=== PATIENT | male | born 1945 | race Caucasian/White ===

== ENCOUNTER → 2017-12-01 10:57 | Outpatient (CLI) | payer MEDICARE, OTHER, SELFPAY ==
--- NOTE | 2017-12-06 16:03 | PM.PFT.1 ---
Pulmonary Function Test Referral & Results Date Patient Seen: 12/01/17 Requesting provider: Veda Costello Results: The spirometry demonstrates an FVC of 3.26 L which is 63% of predicted. The FEV1 was measured at 1.58 L which is 41% of predicted. The FEV1/FVC ratio was 49 which is 66% of predicted. Following the administration of bronchodilator there was a 14% improvement in FEV1 and a 71% improvement in FEF 25-75%.. Lung volumes show an SVC of 5.59 L which is 107% of predicted. The diffusing capacity was measured at 25.69 which is 66% of predicted. No hemoglobin value was provided, so no correction for potential anemia could be made, if appropriate. The maximum voluntary ventilation was normal. Interpretation: This study demonstrates moderately severe obstructive lung disease with some limited evidence of benefit following bronchodilator administration, particularly in small airway flow as demonstrated by the improvement in FEF 25-75%. Lung volumes were normal. Diffusing capacity is minimally reduced as well unless patient is anemic of course. Clinical correlation suggested
== END ==
PROVIDERS: PCP Family Medicine; Visit Provider Family Medicine
DX: R06.02 Shortness of breath (principal)
CPT/HCPCS: 94010; 94060; 94726; 94729

== ENCOUNTER → 2018-12-12 12:26 | Outpatient (CLI) | payer MEDICARE, OTHER, SELFPAY ==
[2018-12-12 13:39] LABS: Alanine Aminotransferase 22 IU/L (21-72); Albumin 4.8 g/dL (3.5-5.0); Albumin Globulin Ratio 1.2 (1.0-2.8); Alkaline Phosphatase 149 U/L (38-126); Aspartate Aminotransferase 24 IU/L (17-59); BUN Creatinine Ratio 22.7 (6-22); Bilirubin Total 0.9 mg/dL (0.2-1.3); Blood Urea Nitrogen 25 mg/dL (9-20); Carbon Dioxide 31 mmol/L (22-32); Chloride 102 mmol/L (98-107); Cholesterol 231 mg/dL (140-199); Estimated Glomerular Filt Rate > 60.0 mL/min (>60); Globulin 3.9 g/dL (1.7-4.1); Glucose 123 mg/dL (80-110); HDL Cholesterol 43 mg/dL (40-60); HEMOLYSIS < 15 (0-50); LDL Cholesterol Calculated 149 mg/dL (<100); Sodium 142 mmol/L (137-145); Total Protein 8.7 g/dL (6.3-8.2); Triglycerides 197 mg/dL (35-150)
[2018-12-12 14:32] LABS: Creatinine Urine Random 178.4 mg/dL
[2018-12-12 14:36] LABS: Microalbumi Creatinin Ratio Ur 16.8 ug/mg CR (<30)
== END ==
PROVIDERS: PCP Family Medicine; Visit Provider Family Medicine
DX: I10 Essential (primary) hypertension (principal)
CPT/HCPCS: 36415; 80053; 80061; 82043; 82570

== ENCOUNTER → 2019-01-08 12:36 | Outpatient (CLI) | payer MEDICARE, OTHER, SELFPAY ==
[2019-01-08 13:04] LABS: Hemoglobin A1C% w Est Avg Glu 5.6 % (4.0-6.0)
== END ==
PROVIDERS: PCP Family Medicine; Visit Provider Family Medicine
DX: R73.9 Hyperglycemia, unspecified (principal)
CPT/HCPCS: 36415; 83036

== ENCOUNTER → 2019-07-09 11:45 | Outpatient (CLI) | payer MEDICARE, OTHER, SELFPAY ==
[2019-07-09 13:04] LABS: Cholesterol 231 mg/dL (140-199); HDL Cholesterol 37 mg/dL (40-60); LDL Cholesterol Calculated 155 mg/dL (<100); Triglycerides 194 mg/dL (35-150)
== END ==
PROVIDERS: PCP Family Medicine; Visit Provider Family Medicine
DX: I10 Essential (primary) hypertension (principal)
CPT/HCPCS: 36415; 80061

== ENCOUNTER 2019-12-13 09:51 | Inpatient (IN) | payer MEDICARE, OTHER, SELFPAY ==
[2019-12-13] VITALS (12 sets, daily range): BP systolic 99–148; BP diastolic 53–68; PULSE 83–97; RESP 14–25; TEMP 36.6–36.8; O2SAT 92–98; BMI 26.3; BMI 24.6
--- NOTE | 2019-12-13 09:57 | DI.CT.S_ITS ---
PROCEDURE: CT STROKE INDICATIONS: Left arm weakness, left facial numbness TECHNIQUE: Noncontrast 4.5 mm thick angled axial sections acquired from the foramen magnum to the vertex, with coronal reformats. For radiation dose reduction, the following was used: automated exposure control, adjustment of mA and/or kV according to patient size. COMPARISON: None. FINDINGS: Image quality: Excellent. CSF spaces: Basal cisterns are patent. No extra-axial fluid collections. The ventricles are symmetric in size and shape. Brain: There is a subacute moderate sized right posterior temporal infarct with associated vasogenic edema and effacement of the sulci without associated hemorrhage. No other acute or subacute infarcts identified. Mild mass effect on the posterior horn of the right lateral ventricle. No midline shift. No impending transtentorial herniation. There is cerebral volume loss for age, with resultant ventricular and sulcal prominence. There are periventricular and deep white matter chronic small vessel ischemic changes. Old wedge-shaped inferior left cerebellar infarct. There is intracranial internal carotid artery atherosclerosis. Skull and face: Calvarium and visualized facial bones appear intact, without suspicious lesions. Sinuses: Small air-fluid level, left maxillary sinus. IMPRESSION: 1. Subacute moderate right posterior temporal infarct. 2. Old left cerebellar infarct. Comment: Findings were discussed with Dr. Matt at the time of study dictation on 12/13/19 at 1014 hrs.. This study fulfills neurological imaging criteria for inclusion or exclusion of acute stroke therapies based on available published neurological guidelines. Dictated by: Moi Martinez M.D. on 12/13/2019 at 10:12 Approved by: Moi Martinez M.D. on 12/13/2019 at 10:16
--- NOTE | 2019-12-13 10:02 | ED_ITS ---
HPI - Neuro Symptoms/Deficit General Chief Complaint: Neuro Symptoms/Deficit Stated Complaint: Had a stroke yesterday Time Seen by Provider: 12/13/19 09:54 Source: patient Mode of arrival: Wheelchair Limitations: no limitations History of Present Illness HPI Narrative: 74-year-old male. History of COPD. Not on anticoagulation here for evaluation of a possible stroke. Patient states that yesterday he was disch arged from an outside facility after being admitted for COPD exacerbation. He stated that while he was waiting for discharge he developed a right-sided temporal headache. He states this headache has since resolved. He stated that he was not evaluated for the headache prior to discharge from that outside facility. He states that during his right home he was feeling well. Sometime yesterday afternoon/evening he started having a tingling, fullness, did sensation in his left hand. Patient stated that on the ride to the emergency department today he started slurring his words. Transitional Care Nurse who is with him in the emergency department today states that he was actually slurring his words last evening. He has never had a stroke before. He states that today his breathing is at baseline for him. He was tested for COVID-19 during his last hospital admission it was reported to be negative. Has not tried anything for these current symptoms prior to arrival. Related Data Previous Rx's Medication Instructions Recorded amlodipine 10 mg tablet 10 mg PO QDAY #90 tab 01/05/19 lisinopril 40 mg tablet 40 mg PO DAILY #180 tab 01/05/19 albuterol sulfate 90 mcg/actuation 2 inhalation INHALATION Q4H PRN #1 06/19/19 breath activated powder inhaler each atorvastatin 20 mg tablet 20 mg PO DAILY #90 tab 08/21/19 chlorthalidone 25 mg tablet 25 mg PO DAILY #90 tab 08/21/19 budesonide-formoterol HFA 80 See Rx Instructions .ROUTE 10/16/19 mcg-4.5 mcg/actuation aerosol .COMPLEX #10.2 gram inhaler metoprolol tartrate 100 mg tablet See Rx Instructions .ROUTE 10/16/19 .COMPLEX #180 tablet Allergies Allergy/AdvReac Type Severity Reaction Status Date / Time Sulfa (Sulfonamide Allergy Unknown Verified 12/13/19 10:27 Antibiotics) [SULFA (SULFONAMIDE ANTIBIOTICS)] Review of Systems Constitutional Constitutional: Denies fever(s), Reports headache(s) and Reports weakness Eyes Eyes: Denies blurry vision and Denies change in vision ENT Ears, Nose, Mouth, and Throat: Denies vertigo, Denies dizziness, Reports headache(s), Denies neck pain and Denies sore throat Cardiovascular Cardiovascular: Denies chest pain, Denies syncope, Denies edema, Denies palpitations and Reports dyspnea on exertion Respiratory Respiratory: Reports cough and Reports dyspnea on exertion Gastrointestinal Gastrointestinal: Denies abdominal pain, Denies nausea and Denies vomiting Genitourinary Genitourinary: Denies dysuria Musculoskeletal Musculoskeletal: Denies back pain, Denies myalgias, Denies deformity, Denies arthralgias, Denies neck pain, Reports numbness and Reports tingling Integumentary/Breasts Skin/Breast: Denies lesions and Denies rash Neurologic Neurologic: Denies abnormal movements, Reports abnormal speech, Denies behavioral changes, Denies confusion, Denies vertigo, Denies dizziness, Denies syncope, Reports headache(s), Reports focal weakness, Reports numbness, Denies radicular pain, Denies convulsions, Reports tingling, Reports paresthesias and Reports weakness Psychiatric Psychiatric: Denies behavioral changes and Denies confusion Endocrine Endocrine: Denies palpitations Hematologic/Lymphatic Hematologic/Lymphatic: Denies easy bleeding and Denies easy bruising Allergic/Immunologic Allergic/Immunologic: Denies urticaria Patient History Medical History ADHD (attention deficit hyperactivity disorder) (Chronic 1945) Alcohol abuse (Resolved 1961) Arthritis (Chronic 1945) Cataract (Resolved 2004) Chicken pox (Resolved 1950) Chronic back pain (Chronic 1972) COPD (chronic obstructive pulmonary disease) (Suspected 2016) Hearing loss (Chronic 1994) Hypertension (Chronic 2016) Measles (Resolved 1948) Mumps (Resolved 1951) Recurrent sinusitis (Resolved 1994) Rheumatic fever (Resolved 1961) Tinnitus (Chronic 1945) Vertigo (Chronic 2016) Surgical History Anesthesia (Resolved) History of cataract removal with insertion of prosthetic lens (Resolved 06/24/17) History of cataract removal with insertion of prosthetic lens (Resolved 07/06/17) Family History Father Heart disease Hypertension Mental health problem Stroke Mother Hypertension Mental health problem Alzheimer's disease Sister Age: 69 Fibromyalgia Grandfather Alzheimer's disease Grandmother No problems noted. Grandfather Black lung disease Grandmother Diabetes mellitus Social History marital status: unmarried,single lives independently: Yes pets and animals: No education level: college [employer]/jehovah's witness: gnosticism seatbelt use: always water heater temp set < 120 deg: Yes working smoke detector in home: Yes fire extinguisher in home: No carbon monox detector in home: Yes firearms in home: Yes Smoking Status: Former smoker during the past year weight has: remained stable well-balanced diet: daily or most days daily servings fruits/ve-1 caffeine: Yes eating out: 4 or more times/week Type(s) of exercise: other frequency: 3-4 times per week duration: > 90 minutes/day Smoking Status: Former smoker Exam Initial Vital Signs Initial Vital Signs: Vital Signs Temperature 97.9 F 12/13/19 10:16 Pulse Rate 97 H 12/13/19 10:16 Respiratory Rate 20 12/13/19 10:16 Blood Pressure 123/58 L 12/13/19 10:16 Pulse Oximetry 94 12/13/19 10:16 Const General: cooperative, comfortable, well developed and well groomed Limitations: mental status not altered HENMT Head: normal to inspection and normocephalic Eyes Eyelids: eyelids normal Conjunctivae: conjunctivae normal Pupils: PERRL Resp Effort & Inspection: normal respiratory effort Auscultation: clear to auscultation bilaterally Cardio Rate: regular rate Rhythm: regular rhythm GI Inspection: non-distended Palpation: soft and No firm Skin Lesions: no lesions Rashes: no rashes Neuro General: alert, awake and oriented x3 Speech: speech normal Other: See NIH scale Extrem General: normal to inspection and capillary refill normal Psych Appearance: grossly normal and well kempt Scores GCS Burton coma scale eye opening: Spontaneous Burton coma scale verbal response: Orientated Radha coma scale motor response: Obey commands Radha coma scale total score: 15 NIH Stroke Scale Level of Conciousness: Alert, keenly responsive Ask month/age: Answers both questions correctly. Open/close eyes, close hand: Performs both tasks correctly Best gaze horizontal: Normal Visual castaneda: Partial hemianopia Facial palsy: Normal symetrical movement Left arm drift: No drift for full 10 sec Right arm drift: No drift for full 10 sec Left leg drift: Drifts down, not to bed Right leg drift: No drift for full 10 sec Limb ataxia: Present in one limb Sensory on face/arms/legs: Mild to moderate sensory loss, can tell touch Best language: No aphasia, normal Dysarthria: Normal Extinction or inattention: No abnormality Total NIH Stroke scale score: 4 Course Orders Ordered: ED Orders 12/13/19 09:55 EKG-12 Lead Stat 12/13/19 09:57 CT Stroke Stat 12/13/19 10:10 Complete Blood Count AUTO DIFF Stat Comprehensive Metabolic Panel Stat Lipase Stat Partial Thromboplastin Time Stat Prothrombin Time INR Stat Discontinued Medications Aspirin (Aspirin Chew) 324 mg PO NOW ONE Stop: 12/13/19 09:55 Last Admin: 12/13/19 10:37 Dose: 324 mg Documented by: ALMITA Vital Signs Vital signs: Vital Signs - 8 hr 12/13/19 10:16 12/13/19 10:30 12/13/19 11:00 Temperature 97.9 F Pulse Rate 97 H 93 H 83 Respiratory Rate 20 25 H 14 Blood Pressure 123/58 L Blood Pressure [Left Arm] 132/61 142/66 H Pulse Oximetry 94 94 93 MDM - Neuro Symptoms/Deficit Medical Records Attestation: I reviewed the patient's medical records. Lab Data Attestation: I reviewed the patient's lab results. Result diagrams: 12/13/19 10:10 12/13/19 10:10 Labs: Lab Results 12/13/19 12/13/19 12/13/19 Range/Units 10:10 10:10 10:10 WBC 11.2 H (4.5-11.0) X10^3/uL RBC 3.64 L (4.5-5.9) X10^6/uL Hgb 12.4 L (13.5-17.5) g/dL Hct 35.2 L (41-53) % MCV 96.7 (80-100) fL MCH 34.1 H (26-34) PG MCHC 35.3 (30-36) % RDW 12.9 (11.6-14.8) % Plt Count 330 (150-400) X10^3/uL Neut % (Auto) 69.1 (50-75) % Lymph % (Auto) 15.6 L (25-40) % Hayes % (Auto) 11.6 (3-14) % Eos % (Auto) 3.3 (2-4) % Baso % (Auto) 0.4 (0-2) % Neut # (Auto) 7700 H (1278-5208) /uL Lymph # (Auto) 1700 (4326-5265) /uL Hayes # (Auto) 1300 H (0-900) /uL Eos # (Auto) 400 (0-450) /uL Baso # (Auto) 0 (0-100) /uL PT 11.3 (10.1-12.7) SECONDS INR 1.0 (0.9-1.3) APTT 28 (26.4-36.2) SECONDS Sodium 133 L (137-145) mmol/L Potassium 4.2 (3.4-5.1) mmol/L Chloride 98 (98-107) mmol/L Carbon Dioxide 28 (22-32) mmol/L BUN 23 H (9-20) mg/dL Creatinine 1.22 (0.66-1.25) mg/dL Estimated GFR 58.2 L (>60) mL/min BUN/Creatinine Ratio 18.9 (6-22) Glucose 128 H (80-110) mg/dL Calcium 9.8 (8.4-10.2) mg/dL Total Bilirubin 1.3 (0.2-1.3) mg/dL AST 52 (17-59) IU/L ALT 71 H (<50) IU/L Alkaline Phosphatase 114 (38-126) U/L Total Protein 7.7 (6.3-8.2) g/dL Albumin 4.1 (3.5-5.0) g/dL Globulin 3.6 (1.7-4.1) g/dL Albumin/Globulin Ratio 1.1 (1.0-2.8) Lipase 193 (23-300) U/L Imaging Data CT scan - head: Radiologist's Impression: [address] [id number] [address] Scan Report Signed Patient: RaviCharbel [facility]#: [id number] : 6Acct:[id number] Age/Sex: 74 / MDate of Service: 12/13/19 Loc: ED Accession Number: [id number] Procedure: CT Stroke Ordering Provider: Charbel Matt D.O. PROCEDURE: CT STROKE INDICATIONS: Left arm weakness, left facial numbness TECHNIQUE: Noncontrast 4.5 mm thick angled axial sections acquired from the foramen magnum to the vertex, with coronal reformats. For radiation dose reduction, the following was used: automated exposure control, adjustment of mA and/or kV according to patient size. COMPARISON: None. FINDINGS: Image quality: Excellent. CSF spaces: Basal cisterns are patent. No extra-axial fluid collections. The ventricles are symmetric in size and shape. Brain: There is a subacute moderate sized right posterior temporal infarct with associated vasogenic edema and effacement of the sulci without associated hemorrhage. No other acute or subacute infarcts identified. Mild mass effect on the posterior horn of the right lateral ventricle. No midline shift. No impending transtentorial herniation. There is cerebral volume loss for age, with resultant ventricular and sulcal prominence. There are periventricular and deep white matter chronic small vessel ischemic c hanges. Old wedge-shaped inferior left cerebellar infarct. There is intracranial internal carotid artery atherosclerosis. Skull and face: Calvarium and visualized facial bones appear intact, without suspicious lesions. Sinuses: Small air-fluid level, left maxillary sinus. IMPRESSION: 1. Subacute moderate right posterior temporal infarct. 2. Old left cerebellar infarct. Comment: Findings were discussed with Dr. Matt at the time of study dictation on 12/13/19 at 1014 hrs.. This study fulfills neurological imaging criteria for inclusion or exclusion of acute stroke therapies based on available published neurological guidelines. Dictated by: Moi Martinez M.D. on 12/13/2019 at 10:12 Approved by: Moi Martinez M.D. on 12/13/2019 at 10:16 ECG Data Attestation: I personally reviewed and interpreted this ECG as follows: Prior ECG tracings: not available for review Interpretation: Sinus rhythm Ventricular rate of 92 Normal axis Normal QRS Normal QTC No ST T wave changes MDM Narrative Medical decision making narrative: Patient with symptom onset greater than 12 hours ago. NIH score 4. Head CT concerning for left temporal infarct. Discussed the case with with Stroke Neurology at [facility] to recommended subacute care. Discussed case with Dr. Theodore with internal medicine who will admit for further evaluation treatment. Discussed admission with the patient expressed understanding agreement Discharge Plan Departure Patient Disposition: Admitted As Inpatient Clinical Impression: Cerebrovascular accident Qualifiers: CVA mechanism: thrombosis Precerebral and cerebral artery: unspecified precer ebral artery Qualified Code(s): I63.00 - Cerebral infarction due to thrombosis of unspecified precerebral artery Admit Date/Time: 12/13/19 11:17 Admit Provider: Leonard Theodore
[2019-12-13] MEDS: ASPIRIN 81 MG CHEW TAB 324 MG PO (10:37)
[2019-12-13 10:49] LABS: Add Manual Diff / Slide Review NO; Basophils Absolute Auto 0 /uL (0-100); Basophils Percent Auto 0.4 % (0-2); Eosinophils Absolute Auto 400 /uL (0-450); Eosinophils Percent Auto 3.3 % (2-4); Hematocrit 35.2 % (41-53); Hemoglobin 12.4 g/dL (13.5-17.5); Lymphocytes Absolute Auto 1700 /uL (1100-4500); Lymphocytes Percent Auto 15.6 % (25-40); Mean Corpuscular HGB Conc 35.3 % (30-36); Mean Corpuscular Hemoglobin 34.1 PG (26-34); Mean Corpuscular Volume 96.7 fL (80-100); Monocytes Absolute Auto 1300 /uL (0-900); Monocytes Percent Auto 11.6 % (3-14); Neutrophils Absolute Auto 7700 /uL (1500-7000); Neutrophils Percent Auto 69.1 % (50-75); Platelet Count 330 X10^3/uL (150-400); Red Blood Cell Count 3.64 X10^6/uL (4.5-5.9); Red Cell Distribution Width 12.9 % (11.6-14.8); White Blood Cell Count 11.2 X10^3/uL (4.5-11.0)
--- NOTE | 2019-12-13 10:55 | PC.NURSE ---
report dc from [facility], pt reported headache, sent home. en route goind home, developed left arm tactile dull approx 11am, with slurred speech, then through out the day, with left hand weakness, unable to hold a cup or grab a blanket. able to sleep thru the night, today en route to the er, developed left face droop approx [id number]
[2019-12-13 10:56] LABS: Prothrombin Time 11.3 SECONDS (10.1-12.7)
[2019-12-13 10:59] LABS: PTT Partial Thromboplastin Tim 28 SECONDS (26.4-36.2)
[2019-12-13 11:00] LABS: Alanine Aminotransferase 71 IU/L (<50); Albumin 4.1 g/dL (3.5-5.0); Albumin Globulin Ratio 1.1 (1.0-2.8); Alkaline Phosphatase 114 U/L (38-126); Aspartate Aminotransferase 52 IU/L (17-59); BUN Creatinine Ratio 18.9 (6-22); Bilirubin Total 1.3 mg/dL (0.2-1.3); Blood Urea Nitrogen 23 mg/dL (9-20); Calcium 9.8 mg/dL (8.4-10.2); Carbon Dioxide 28 mmol/L (22-32); Chloride 98 mmol/L (98-107); Estimated Glomerular Filt Rate 58.2 mL/min (>60); Globulin 3.6 g/dL (1.7-4.1); Glucose 128 mg/dL (80-110); HEMOLYSIS < 15 (0-50); Lipase 193 U/L (23-300); Potassium 4.2 mmol/L (3.4-5.1); Sodium 133 mmol/L (137-145); Total Protein 7.7 g/dL (6.3-8.2)
--- NOTE | 2019-12-13 11:01 | PC.NURSE ---
pt with left face droop,left hand numbness, left eye vision 3-6 o clock, not able to see.
--- NOTE | 2019-12-13 15:20 | PC.NURSE ---
[facility]- ED report given to Dahlia RN Coordinator. pt arrived to unit via stretcher at 1240, settled into room 219, bed alarm on, no history of falls. Oriented to call light. NIH score is 7 for mild slurred speech, does not know current date, guessed at it being . See NIH scale for assessment.
--- NOTE | 2019-12-13 15:23 | P.HP_ITS ---
History of Present Illness History of Present Illness Date Patient Seen: 12/13/19 Time Patient Seen: 15:26 Chief complaint: Had a stroke yesterday Narrative: Meet Rodrigues is a 74-year-old male with past medical history of COPD, hypertension, hyperlipidemia who presented to the emergency room today complaining of stroke symptoms since yesterday evening. Patient states that yesterday he was discharged from [facility] for treatment of a COPD exacerbation, when leaving he complained of a headache on the right side. He was discharge from the hospital and later that evening according to his daughter he was having some difficulty with speech yesterday evening. This continued in this morning his left hand was numb and he did not feel well. He noticed noticed some left-sided numbness in his face and tongue. He denies any lower extremity symptoms. She did not notice any weakness and did not notice any facial droop. He did not have any dizziness, palpitations, chest pain, worsening shortness of breath, lower extremity edema, orthopnea. He did have an IV placed in his left hand and there is some resulting bruising, but it was not numb when he left the hospital. In the emergency room, patient's vital signs are unremarkable. Laboratory eval uation showed a mild leukocytosis at 11.2, hemoglobin of 12.4, platelet of 330. Coags were unremarkable. Chemistries revealed a sodium of 133, creatinine of 1.22, ALT of 71, but no other abnormal findings. In the ED his stroke scale was 4, upon arrival to the floor it was too with differences being in the emergency room he had a left-sided ataxia that was not evident on my exam, and left leg weakness that was not present on my exam, he continues to have sensory deficits on the left as well as partial hemianopia. CT noncontrast showed a subacute moderate right posterior temporal infarct, as well as a left cerebellar infarct. He was admitted to Medicine for further evaluation and monitoring after an acute CVA. Patient History Medical History ADHD (attention deficit hyperactivity disorder) (Chronic 1945) Alcohol abuse (Resolved 1961) Arthritis (Chronic 1945) Cataract (Resolved 2004) Chicken pox (Resolved 1950) Chronic back pain (Chronic 1972) COPD (chronic obstructive pulmonary disease) (Suspected 2016) Hearing loss (Chronic 1994) Hypertension (Chronic 2016) Measles (Resolved 1948) Mumps (Resolved 1951) Recurrent sinusitis (Resolved 1994) Rheumatic fever (Resolved 1961) Tinnitus (Chronic 1945) Vertigo (Chronic 2016) Surgical History Anesthesia (Resolved) History of cataract removal with insertion of prosthetic lens (Resolved 06/24/17) History of cataract removal with insertion of prosthetic lens (Resolved 07/06/17) Family & Social History Family History Father Heart disease Hypertension Mental health problem Stroke Mother Hypertension Mental health problem Alzheimer's disease Sister Age: 69 Fibromyalgia Grandfather Alzheimer's disease Grandmother No problems noted. Grandfather Black lung disease Grandmother Diabetes mellitus Social History: household members other Prior Living Arrangements House lives independently Yes Safety & Behavioral: Feels Safe in Current Yes Environment Been Physically Hurt or No Threatened By a Person Suicidal Ideation Description None Suicide Plan Description No Plan Tobacco & Substance use: Smoking Status Former smoker alcohol intake former Substance Use Type does not use Meds Home Medications and Allergies Home Medications Medication Instructions Recorded Confirmed Type amlodipine 10 mg tablet 10 mg PO QDAY #90 tab 01/05/19 07/09/19 Rx lisinopril 40 mg tablet 40 mg PO DAILY #180 tab 01/05/19 07/09/19 Rx albuterol sulfate 90 mcg/actuation 2 inhalation INHALATION Q4H PRN #1 06/19/19 07/09/19 Rx breath activated powder inhaler each atorvastatin 20 mg tablet 20 mg PO DAILY #90 tab 08/21/19 Rx chlorthalidone 25 mg tablet 25 mg PO DAILY #90 tab 08/21/19 Rx budesonide-formoterol HFA 80 See Rx Instructions .ROUTE 10/16/19 Rx mcg-4.5 mcg/actuation aerosol .COMPLEX #10.2 gram inhaler metoprolol tartrate 100 mg tablet See Rx Instructions .ROUTE 10/16/19 Rx .COMPLEX #180 tablet Allergies Allergy/AdvReac Type Severity Reaction Status Date / Time Sulfa (Sulfonamide Allergy Unknown Verified 12/13/19 10:27 Antibiotics) [SULFA (SULFONAMIDE ANTIBIOTICS)] Review of Systems Review of Systems Narrative: All other systems reviewed with the patient and are negative unless otherwise stated. Exam Vital Signs (past 8 hours): - 12/13/19 10:05 12/13/19 10:16 12/13/19 10:30 Temperature 97.9 F Pulse Rate 96 H 97 H 93 H Respiratory Rate 19 20 25 H Blood Pressure 123/58 L Blood Pressure [Left Arm] 148/67 H 132/61 Pulse Oximetry 98 94 94 12/13/19 11:00 12/13/19 11:30 12/13/19 12:00 Temperature Pulse Rate 83 88 90 Respiratory Rate 14 17 18 Blood Pressure Blood Pressure [Left Arm] 142/66 H 142/66 H 132/68 Pulse Oximetry 93 92 93 12/13/19 13:51 Temperature 98.1 F Pulse Rate 92 H Respiratory Rate 19 Blood Pressure 141/61 H Blood Pressure [Left Arm] Pulse Oximetry 95 Oxygen Delivery Method Room Air Oxygen Flow Rate 0 Narrative Exam Narrative: GENERAL APPEARANCE: Well developed, well nourished, in no acute distress. SKIN: Inspection of the skin reveals no rashes, ulcerations or petechiae. HEENT: Normocephalic atraumatic, extraocular muscles are intact, oropharynx is clear and mucous membranes are moist, neck is supple without adenopathy NECK: Supple and symmetric. There was no thyroid enlargement, and no tenderness, or masses were felt. CHEST: Normal AP diameter and normal contour without any kyphoscoliosis. LUNGS: Auscultation of the lungs revealed no wheezes, rhonchi, or rales. CARDIOVASCULAR: There was a regular rate and rhythm without any murmurs, gallops, rubs. Peripheral pulses were 2+ and symmetric. ABDOMEN: Soft and nontender with normal bowel sounds. No ascites was noted. MUSCULOSKELETAL: There was no tenderness or effusions noted. Muscle strength and tone were normal. EXTREMITIES: No cyanosis, clubbing or edema. NEUROLOGIC: Alert and oriented x 3. Normal affect. Strength is +5/5 in the Upper Extremities and Lower Extremities Bilaterally. Sensation to touch was diminished on his face and left hand. There is a partial hemianopia and he is unable to see in his left lower visual field. Objective ECG Impression: Normal sinus rhythm. Imaging CT scan - head: Radiologist's impression: 1. Subacute moderate right posterior temporal infarct. 2. Old left cerebellar infarct. Labs Result Diagrams: 12/13/19 10:10 12/13/19 10:10 Labs: Laboratory Results - last 24 hr 12/13/19 12/13/19 12/13/19 10:10 10:10 10:10 WBC 11.2 H RBC 3.64 L Hgb 12.4 L Hct 35.2 L MCV 96.7 MCH 34.1 H MCHC 35.3 RDW 12.9 Plt Count 330 Neut % (Auto) 69.1 Lymph % (Auto) 15.6 L [place] % (Auto) 11.6 Eos % (Auto) 3.3 Baso % (Auto) 0.4 Neut # (Auto) 7700 H Lymph # (Auto) 1700 [place] # (Auto) 1300 H Eos # (Auto) 400 Baso # (Auto) 0 PT 11.3 INR 1.0 APTT 28 Sodium 133 L Potassium 4.2 Chloride 98 Carbon Dioxide 28 BUN 23 H Creatinine 1.22 Estimated GFR 58.2 L BUN/Creatinine Ratio 18.9 Glucose 128 H Calcium 9.8 Total Bilirubin 1.3 AST 52 ALT 71 H Alkaline Phosphatase 114 Total Protein 7.7 Albumin 4.1 Globulin 3.6 Albumin/Globulin Ratio 1.1 Lipase 193 Assessment & Plan Assessment & Plan narrative: Meet Rodrigues is a 74-year-old male with past medical history of COPD, hypertension, hyperlipidemia who presented to the emergency room today complaining of stroke symptoms since yesterday evening, he continues to have a partial hemianopia and some facial numbness after arrival to the floor. His CT scan was positive for a subacute infarct and he is admitted to Medicine for further evaluation and monitoring after an acute CVA. 1. CVA, acute, present on admission - CT head non-contrast in the ER showing, a Subacute moderate right posterior temporal infarct and an Old left cerebellar infarct. -patient received full-dose aspirin in the emergency room, continue 81 mg daily. Giving presenting stroke scale of 4 by ER provider this is outside the range for DAPT therapy. -will change to high-intensity statin at Lipitor 80 mg daily from home 20 mg. -will risk stratify with A1c, TSH, fasting lipid panel -continue telemetry -will obtain MR stroke, and echocardiogram -will continue dysphagia diet at this time pending speech evaluation -PT and OT evaluations 2. COPD, chronic, with recent exacerbation -will change home Symbicort to Advair given formulary -RT eval and treat -as needed albuterol nebulizers for shortness of breath -goal oxygenation greater than 88% 3. Hypertension, chronic -continue amlodipine, chlorthalidone, lisinopril, and home metoprolol 4. Hyperlipidemia, chronic -will change statin therapy as noted above Code: Full, states that surrogate decision maker is his daughter or sister, he cannot decide between the 2 at this time. DVT: Heparin subcu Dispo: Admitted under inpatient status as his stay is expected to exceed 2 midnights. Scores NIHSS Level of Conciousness: Alert, keenly responsive Ask month/age: Answers both questions correctly. Open/close eyes, close hand: Performs both tasks correctly Best gaze horizontal: Normal Visual castaneda: Partial hemianopia Facial palsy: Normal symetrical movement Left arm drift: No drift for full 10 sec Right arm drift: No drift for full 10 sec Left leg drift: No drift for full 5 sec Right leg drift: No drift for full 5 sec Limb ataxia: Absent Sensory on face/arms/legs: Mild to moderate sensory loss, can tell touch Best language: No aphasia, normal Dysarthria: Normal Extinction or inattention: No abnormality Total NIH Stroke scale score: 2
[2019-12-13] MEDS: FLUTICASONE/SALMETEROL 100/50 60 PUFF DISKUS INH (19:07)
[2019-12-13] MEDS: ALBUTEROL HFA 60 PUFF/8 GM INH INH (19:07)
[2019-12-13] MEDS: ATORVASTATIN 20 MG TABLET 80 MG PO (20:24)
[2019-12-13] MEDS: HEPARIN 5,000 UNIT/ML VIAL 5000 UNIT SUBCUT (20:26)
[2019-12-14] VITALS (16 sets, daily range): BP systolic 83–149; BP diastolic 56–69; PULSE 84–104; RESP 16–20; TEMP 36.1–36.9; O2SAT 90–98
[2019-12-14 05:36] LABS: Add Manual Diff / Slide Review NO; Basophils Absolute Auto 0 /uL (0-100); Basophils Percent Auto 0.5 % (0-2); Eosinophils Absolute Auto 400 /uL (0-450); Eosinophils Percent Auto 4.4 % (2-4); Hematocrit 31.7 % (41-53); Hemoglobin 11.4 g/dL (13.5-17.5); Lymphocytes Absolute Auto 1900 /uL (1100-4500); Lymphocytes Percent Auto 21.9 % (25-40); Mean Corpuscular Hemoglobin 35.7 PG (26-34); Mean Corpuscular Volume 99.2 fL (80-100); Monocytes Absolute Auto 1000 /uL (0-900); Monocytes Percent Auto 11.4 % (3-14); Neutrophils Absolute Auto 5500 /uL (1500-7000); Neutrophils Percent Auto 61.8 % (50-75); Platelet Count 297 X10^3/uL (150-400); Red Cell Distribution Width 13.1 % (11.6-14.8); White Blood Cell Count 8.9 X10^3/uL (4.5-11.0)
[2019-12-14 05:48] LABS: Alanine Aminotransferase 59 IU/L (<50); Albumin 3.7 g/dL (3.5-5.0); Albumin Globulin Ratio 1.2 (1.0-2.8); Alkaline Phosphatase 94 U/L (38-126); Aspartate Aminotransferase 46 IU/L (17-59); BUN Creatinine Ratio 19.5 (6-22); Bilirubin Total 1.2 mg/dL (0.2-1.3); Bilirubin Unconjugated 1.2 mg/dL (0.0-1.1); Blood Urea Nitrogen 24 mg/dL (9-20); Calcium 9.5 mg/dL (8.4-10.2); Carbon Dioxide 29 mmol/L (22-32); Chloride 100 mmol/L (98-107); Estimated Glomerular Filt Rate 57.7 mL/min (>60); Globulin 3.2 g/dL (1.7-4.1); Glucose 120 mg/dL (80-110); HEMOLYSIS < 15 (0-50); Potassium 3.9 mmol/L (3.4-5.1); Sodium 132 mmol/L (137-145); Total Protein 6.9 g/dL (6.3-8.2)
[2019-12-14 05:59] LABS: Cholesterol 133 mg/dL (140-199); HDL Cholesterol 33 mg/dL (40-60); LDL Cholesterol Calculated 79 mg/dL (<100); Magnesium 2.3 mg/dL (1.6-2.3); Triglycerides 106 mg/dL (35-150)
[2019-12-14 06:09] LABS: Hemoglobin A1C% w Est Avg Glu 6.2 % (4.0-6.0)
[2019-12-14 06:25] LABS: TSH w/ Reflex to FT4 2.12 uIU/mL (0.47-4.68)
[2019-12-14] MEDS: FLUTICASONE/SALMETEROL 100/50 60 PUFF DISKUS INH ×2 (07:37→20:17)
[2019-12-14] MEDS: ALBUTEROL HFA 60 PUFF/8 GM INH INH (07:37)
--- NOTE | 2019-12-14 07:53 | DI.MRI.S_ITS ---
PROCEDURE: MR STROKE Pre- and post-contrast brain MRI, non-contrast brain MR angiogram, pre- and postcontrast neck MR angiogram INDICATIONS: CVA TECHNIQUE: Brain: Noncontrast axial T1 spin echo, axial T2 fast spin echo, sagittal and axial FLAIR, coronal T2 fast spin echo, axial gradient echo, axial diffusion and ADC through the brain. After the administration of contrast, axial 3D VIBE of the cranial vasculature and brain. Brain MRA: Non-contrast 3-D time of flight MR angiogram, with multiple guvexnd-duxmrdcan-kgpzhqrnsa (MIP) reformats performed. Neck MRA: Axial and sagittal TruFISP through the neck. Coronal dynamic MR angiogram during administration of contrast in the arterial and venous phases, with 3-dimenstional lhaiiqw-xicxbourc-ejvdnpdeoo (MIP) reformats constructed from subtraction images. COMPARISON: [facility], CT, CT STROKE, 12/13/2019, 9:52. [facility], [place], CAROTID ARTERY DOPPLER BILAT, 07/13/2017, 13:59. FINDINGS: Image quality: This examination is limited by involuntary motion artifact. The intracranial arterial system is poorly evaluated. BRAIN: CSF spaces: Ventricles are normal in size and shape. Basal cisterns are patent. No extra-axial fluid collections. Brain: There is a moderately sized infarction seen involving the right frontoparietal region, with mild involvement of the temporal lobe also seen, with abnormal diffusion weighted signal with decreased signal on ADC map and developing T2-weighted signal. No intracranial bleeds or mass effects. Lozano-white matter interface is normal. Brainstem appears normal. Brain parenchymal volume loss is seen. Chronic small vessel ischemic change can be seen. Normal intravascular flow voids are present. No abnormal intracranial enhancement. Skull and face: Calvarial marrow signal is normal. Orbits appear normal. Sinuses: Sinuses and mastoids are clear. BRAIN MR ANGIOGRAM: Anterior circulation: Intracranial internal carotid arteries are normal in size and enhancement. The flow within the paired anterior cerebral arteries is normal and symmetric. The flow within the middle cerebral arteries is normal and symmetric. The anterior communicating artery is seen. No stenoses, occlusions, or aneurysms. Posterior circulation: There is poor flow within the left vertebral artery. There is a normal appearing basilar artery. The flow within the posterior cerebral arteries is normal and symmetric. No stenoses aneurysms. NECK MR ANGIOGRAM: Carotids: Great vessels demonstrate a conventional anatomy as they arise from the aortic arch. The origins of the common carotid arteries appear patent. The calibers and courses of both common carotid arteries are normal. The bifurcation regions demonstrate atherosclerotic irregularity, yet without a hemodynamically significant stenosis. Posterior circulation: There is a high-grade stenosis seen at the origin of the left vertebral artery, with poor flow seen within the left vertebral artery. Miscellaneous: Subclavian arteries appear patent. Pre-contrast images through the neck show no soft tissue abnormalities. IMPRESSION: BRAIN MRI: Moderately sized subacute infarction involving the right frontoparietal region, and also involving a mild portion of the posterior right temporal lobe. BRAIN MR ANGIOGRAM: To the limits of this study, no significant intracranial arterial abnormality is seen. NECK MR ANGIOGRAM: High-grade stenosis seen involving the left proximal vertebral artery. No significant carotid stenosis can be seen. Dictated by: Corey Vicente M.D. on 12/14/2019 at 10:47 Approved by: Corey Vicente M.D. on 12/14/2019 at 10:53
[2019-12-14] MEDS: polyethylene glycoL 3350 17 GM POWD.PACK PO (09:45)
[2019-12-14] MEDS: HEPARIN 5,000 UNIT/ML VIAL 5000 UNIT SUBCUT ×2 (09:45→20:01)
[2019-12-14] MEDS: SODIUM CHLORIDE 0.9% FLUSH 10 ML IV ×2 (09:45→20:02)
[2019-12-14] MEDS: ASPIRIN EC 81 MG TABLET PO (09:45)
[2019-12-14] MEDS: DOCUSATE 100 MG CAPSULE PO ×2 (09:45→20:01)
[2019-12-14] MEDS: ACETAMINOPHEN 325 MG TABLET 650 MG PO ×2 (09:50→20:01)
[2019-12-14] MEDS: lisinopriL 20 MG TABLET 40 MG PO (10:16)
[2019-12-14] MEDS: CHLORTHALIDONE 25 MG TABLET PO (10:16)
--- NOTE | 2019-12-14 10:22 | PC.NURSE ---
Day shift: Pt odd unit for imaging at approx 1015. Pt refused to wear a mask.
--- NOTE | 2019-12-14 11:26 | OT.IP.EVAL ---
Current Diagnoses Cerebral infarction, unspecified (12/13/19) Past Medical History (Last Reviewed 12/13/19 @ 10:25 by Charbel Matt DO) ADHD (attention deficit hyperactivity disorder) (Chronic 1945) Alcohol abuse (Resolved 1961) Arthritis (Chronic 1945) Cataract (Resolved 2004) Chicken pox (Resolved 1950) Chronic back pain (Chronic 1972) COPD (chronic obstructive pulmonary disease) (Suspected 2016) Hearing loss (Chronic 1994) Hypertension (Chronic 2016) Measles (Resolved 1948) Mumps (Resolved 1951) Recurrent sinusitis (Resolved 1994) Rheumatic fever (Resolved 1961) Tinnitus (Chronic 1945) Vertigo (Chronic 2016) Surgical History (Last Reviewed 12/13/19 @ 10:25 by Charbel Matt DO) Anesthesia (Resolved) History of cataract removal with insertion of prosthetic lens (Resolved 06/24/17) History of cataract removal with insertion of prosthetic lens (Resolved 07/06/17) Occupational Therapy Inpatient Evaluation/Re-Eval M1 PT/OT-IP Prior Functional Status Start: 12/14/19 12:33 Freq: NEEDED Status: Active Protocol: Document 12/14/19 12:33 CGR (Rec: 12/14/19 12:54 CGR [id number]) Medical Review Prior Functional Status Medical History Reviewed Yes Communication Pt is an effective verbal communicator. Mobility and Gait Pt was IND prior to admit but stated that he was having difficulty with endurance. Activities of Daily Living and IADL's Pt was IND in all ADLs. Social History Household Members family Living Arrangements House Number of Floors (Floors) One Floor Number of Stairs To Enter/Railing? 1 step without rail to enter Home Environment Standard Height Toilet,Tub/ Shower Doors Home Equipment Four Wheel Walker,Straight Cane,Grab Bars In Shower Employment Status Retired Additional Social History Comment Pt lives with his grandson. Pts sister lives nextdoor and his daughter and her family live on the other side of him. Pt states he would have help from family if needed. M2 OT-IP Current Condition Start: 12/14/19 12:33 Freq: Status: Active Protocol: Document 12/14/19 12:33 CGR (Rec: 12/14/19 12:54 CGR [id number]) Occupational Therapy Current Condition Current Condition Evaluation Date 12/14/19 Treatment Diagnosis Sub acute R posterior temporal and L cerebellar infarcts Diagnosis Onset Date 12/13/19 M3 OT- IP Subjective and Pain Start: 12/14/19 12:33 Freq: Status: Active Protocol: Document 12/14/19 12:33 CGR (Rec: 12/14/19 12:54 CGR [id number]) OT- Subjective Occupational Therapy Visit Type Type Initial Evaluation Visit Start Time 11:11 Visit Stop Time 11:26 Total Visit Minutes 15 Notes Limited time for evalution. Pt seen between CT scan and ECHO Occupational Therapy Visit Comments Patient Comments I think I am going to need this cane. OT Pain Assessment Pain When Pain Assessed At Rest Pain Present Pain Present Denied Pain M4 OT- IP ADL's Start: 12/14/19 12:33 Freq: Status: Active Protocol: Document 12/14/19 12:33 CGR (Rec: 12/14/19 12:54 CGR [id number]) OT [id number] Comments OT Self-Feeding Comments Not meal time OT ADL-Grooming Comments OT Grooming Comments Pt declined OT ADL-Oral Care Comments Oral Care Comments Not performed d/t time restrictions. OT ADL-Dressing General Eval Lower Body Dressing Ability Standby Assistance Areas Needing Assistance Socks Comments OT Dressing Comments Pt able to doff and don L sock with difficulty and extra time. OT ADL-Toileting General Evaluation Toileting Ability Independent Devices Toileting Assistive Devices Commode Comments OT Toileting Comments Pt demonstrated use of toilet without difficulties OT ADL-Bathing Comments OT Bathing Comments Not performed in this session. M5 OT- IP IADL's Start: 12/14/19 12:33 Freq: Status: Active Protocol: Document 12/14/19 12:33 CGR (Rec: 12/14/19 12:54 CGR [id number]) OT-Instrumental Activities of Daily Living Deficits IADL Deficits Identified Deficits Home Safety Awareness Awareness of Need for Assistance at Home Good Awareness Ability to Problem Solve Emergency Able to Problem Solve Situations Home Safety Comments Concerns for true understanding of visual deficit. 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 M6 OT- IP Functional Cognition Start: 12/14/19 12:33 Freq: Status: Active Protocol: Document 12/14/19 12:33 CGR (Rec: 12/14/19 12:54 CGR [id number]) Cognitive Factors Limiting Selfcare Function Cognitive Ability Level of Alertness Alert Patient Orientation Name,Age,Birthday,Month,Date, Year,Day of Week,Place, Situation Attention Span Ability Capable of Focused Attention, Capable of Sustained Attention Ability to Follow Commands Able to Follow One Step Commands Cognitive Comments Cognitive Assessment Comments Pt may benefit from formal cog assessment for baseline levels s/p CVA. OT- Vision and Hearing OT- Hearing Assessment OT- Hearing Assessment WFL OT- Vision Assessment Visual Acuity Glasses For Reading Visual Attentiveness WFL Occular Pursuits WFL Visual Convergence WFL Visual Giordano Impaired Vision Assessment Comments Pt missing vision to his L lower quadrant. M7 OT- IP Mobility and Balance Start: 12/14/19 12:33 Freq: Status: Active Protocol: Document 12/14/19 12:33 CGR (Rec: 12/14/19 12:54 CGR [id number]) OT- Bed Mobility Assessment Rolling Type of Rolling Roll to Right Level of Assistance Independent Supine to Sit Supine to Sit Assist Independent Sit to Supine Sit to Supine Assist Independent Scooting Scooting to Edge of Bed Independent OT-Transfer Assessment Sit to and From Stand Sit to and from Stand Contact Guard Assistance Transfers Transfer Ability Contact Guard Assistance Technique Transfer Destination Bed,Toilet Transfer Technique Stand Step Pivot Devices Transfer Assistive Devices Gait Belt,Straight Cane Comments Mobility Comments Pt ambualted to bathroom and returned to bed for ECHO OT- Gait Assessment Gait Gait Assistance Required: Contact Guard Assist Assistive Devices Assistive Device Gait Belt,Straight Cane OT- Balance Assessment Sitting Balance and Reactions Static Sitting Balance Ability Good Dynamic Sitting Balance Ability Fair M8 OT- IP Objective Assessments Start: 12/14/19 12:33 Freq: Status: Active Protocol: Document 12/14/19 12:33 CGR (Rec: 12/14/19 12:54 CGR [id number]) OT Gross Range of Motion Upper Extremity Range of Motion Assessment Within Functional Limits OT Strength Upper Extremity Strength Assessment Within Functional Limits Comments Strength Comments Grossly 4+/5 throughout. Noted that the LUE is slightly weaker than the right. Pt is R handed. OT- Coordination Assessment Upper Extremity Finger to Nose Test Within Functional Limits Finger Tapping Test Left UE Impaired OT-Muscle Tone Assessment Muscle Tone WNL No OT Sensation Assessment Location Left Hand Light Touch Impaired Sensation Description Numbness Comments Summary Comments Pt states numbness to the L palm and fingers but that the back of his hand now feels normal. Edema Edema Absent M9 OT- IP Assessment and Plan Start: 12/14/19 12:33 Freq: Status: Active Protocol: Document 12/14/19 12:33 CGR (Rec: 12/14/19 12:54 CGR [id number]) OT Summary Assessment and Plan Potential Rehabilitation Potential Excellent Analytic Complexity at Evaluation Low Summary OT Impairments Coordination,Functional Cognition,Functional Mobility, Self-Feeding,Grooming,Dressing ,Toileting,Bathing,Shower Transfers,Activity Tolerance Progress Towards Goals Progressing Toward Goals Assessment Summary Pt presents as a low complexity evaluation s/p CVA with L sided numbness and coordination deficits. Pt also demonstrates visual deficits to the L lower quadrant. Pt will benefit from OT services to address declines. Recommend further coordination testing of the hand and cog testing. Pt is likely safe for discharge home with family support. Goals Self-Feeding Goal Independent Grooming Goal Independent Dressing Goal Independent Toileting Goal Independent Bathing Goal Independent Toilet Transfer Goal Independent Shower Transfer Goal Independent Days to Meet Goals 5 Frequency of Treatment Frequency Of Treatment Once a Day Treatment Plan OT Treatment Plan ADL Training,Functional Cognition Training,Functional Mobility,Therapeutic Exercises ,Patient/Family Education, Discharge Planning Discharge Recommendations OT Discharge Recommendations Home with Assistance Home Equipment Needs tub transfer bench. Transportation Needs at Discharge Private Vehicle
--- NOTE | 2019-12-14 11:28 | DI.ECHO.S_ITS ---
Echocardiogram Report + + :Name: MARIA DE JESUS ANN Study Date: 12/14/2019 Height: 74 in : :[facility] Weight: 191 lb : : Gender: Male BSA: 2.1 m2 : :: 1945 Age: 74 yrs BP: 127/59 mmHg: :Reason For Study: CVA : :History: COPD : :Ordering Physician: [place] : :Hospitalist Performed By: Zenaida Sweeney : :Referring: URBAN VELÁZQUEZ : + + Interpretation Summary Extremely limited visualization of all cardiac structures. Echo contrast was used to improve visualization of endocardium, but image quality remained poor due to poor acoustic windows. The left ventricle is not well visualized. Left ventricular ejection fraction is visually normal. Diastolic parameters suggest a relaxation abnormality of the left ventricle, consistent with probable normal filling pressures. The right ventricle grossly appears normal in size with probable normal systolic function. The valves are not well-visualized but there is no hemodynamically significant valvular abnormalities by Doppler. -Overall these findings are similar to the prior study. Procedure: A two-dimensional transthoracic echocardiogram with color flow and Doppler was performed. The study quality was technically difficult with limited visualization of cardiac structures. Comparison is made with the echocardiogram of 07/28/2017. Images from the parasternal window were difficult to obtain and are suboptimal in quality. The patient was in normal sinus rhythm during the exam. Left Ventricle: The left ventricle is not well visualized. Left ventricular systolic function is probably normal. Regional wall motion abnormalities cannot be excluded due to limited visualization. Diastolic parameters suggest a relaxation abnormality of the left ventricle, consistent with probable normal filling pressures. Right Ventricle: The right ventricle grossly appears normal in size with probable normal systolic function. Atria: The left atrium grossly appears normal in size. The right atrium grossly appears normal in size. Mitral Valve: The mitral valve is not well visualized. The mitral valve appears to be mildly calcified, but opens well. No obvious mitral regurgitation. Aortic Valve: The aortic valve is not well visualized. No obvious aortic insufficiency. Tricuspid Valve: The tricuspid valve is not well visualized. There is at least trace or physiologic amount of tricuspid regurgitation. Pulmonic Valve: The pulmonic valve is not well visualized. Great Vessels: The aortic root is not well visualized. The ascending aorta could not be visualized. The inferior vena cava was not visualized. MMode/2D Measurements & Calculations LA A2 area: 17.9 cm2 RA long axis: 4.3 cm LA A4 area: 21.6 cm2 RA area: 14.0 cm2 LA length (vol): 5.3 cm RA vol: 38.6 ml LA vol: 62.5 ml RA : 18.1 ml/m2 LA vol index: 29.3 ml/m2 RVD1 (basal): 3.5 cm RVD2 (mid): 3.0 cm TAPSE: 1.8 cm Doppler Measurements & Calculations Ao V2 max: 127.7 cm/sec LVOT Max Emery: 114.8 cm/sec Ao V2 mean: 89.1 cm/sec LV V1 max P.3 mmHg Ao max P.5 mmHg LV V1 VTI: 16.4 cm Ao mean P.5 mmHg sev ratio: 0.89 Ao V2 VTI: 18.5 cm MV E max emery: 46.0 cm/sec MV P1/2t max emery: 45.9 cm/sec MV A max emery: 79.0 cm/sec MVA(P1/2t): 3.3 cm2 MV E/A: 0.58 Med Peak E' Emery: 6.6 cm/sec E/E' med: 6.9 Lat Peak E' Emery: 7.4 cm/sec E/E' lat: 6.2 E/e' average: 6.6 MV dec time: 0.23 sec MV P1/2t: 66.3 msec _ Electronically signed by: Bart hCan M.D. on Reading Physician:12/14/2019 02:11 PM
--- NOTE | 2019-12-14 14:10 | PT.IIE ---
Current Diagnoses Cerebral infarction, unspecified (12/13/19) Surgical History (Last Reviewed 12/13/19 @ 10:25 by Charbel Matt DO) Anesthesia (Resolved) History of cataract removal with insertion of prosthetic lens (Resolved 06/24/17) History of cataract removal with insertion of prosthetic lens (Resolved 07/06/17) Medical History (Last Reviewed 12/13/19 @ 10:25 by Charbel Matt DO) ADHD (attention deficit hyperactivity disorder) (Chronic 1945) Alcohol abuse (Resolved 1961) Arthritis (Chronic 1945) Cataract (Resolved 2004) Chicken pox (Resolved 1950) Chronic back pain (Chronic 1972) COPD (chronic obstructive pulmonary disease) (Suspected 2016) Hearing loss (Chronic 1994) Hypertension (Chronic 2016) Measles (Resolved 1948) Mumps (Resolved 1951) Recurrent sinusitis (Resolved 1994) Rheumatic fever (Resolved 1961) Tinnitus (Chronic 1945) Vertigo (Chronic 2016) Physical Therapy Inpatient Evaluation/Re-Eval M1 PT/OT-IP Prior Functional Status Start: 12/14/19 12:33 Freq: NEEDED Status: Active Protocol: Document 12/14/19 12:33 CGR (Rec: 12/14/19 12:54 CGR [id number]) Medical Review Prior Functional Status Medical History Reviewed Yes Communication Pt is an effective verbal communicator. Mobility and Gait Pt was IND prior to admit but stated that he was having difficulty with endurance. Activities of Daily Living and IADL's Pt was IND in all ADLs. Social History Household Members family Living Arrangements House Number of Floors (Floors) One Floor Number of Stairs To Enter/Railing? 1 step without rail to enter Home Environment Standard Height Toilet,Tub/ Shower Doors Home Equipment Four Wheel Walker,Straight Cane,Grab Bars In Shower Employment Status Retired Additional Social History Comment Pt lives with his grandson. Pts sister lives nextdoor and his daughter and her family live on the other side of him. Pt states he would have help from family if needed. M1 PT/OT-IP Prior Functional Status Start: 12/14/19 15:47 Freq: NEEDED Status: Active Protocol: Document 12/14/19 14:10 AB (Rec: 12/14/19 16:09 AB [id number]) Medical Review Prior Functional Status Medical History Reviewed Yes Communication able to make needs known Mobility and Gait pt stated that he is independent with all mobilities and ambulation without AD but has a SPC that was given to him at [facility]. stated that the only problem he has was getting short of breath after walking a few feet Activities of Daily Living and IADL's per OT's note : Pt was IND in all ADLs. Social History Household Members family Living Arrangements House Number of Floors (Floors) One Floor Number of Stairs To Enter/Railing? pt lives with his grandson that works but stated that his daughter and sister lives next door. has 1 step to enter Home Environment Standard Height Toilet Home Equipment Straight Cane,Grab Bars In Shower Additional Social History Comment pt stated that he sleeps on a recliner M2 PT-IP Current Condition Start: 12/14/19 15:47 Freq: NEEDED Status: Active Protocol: Document 12/14/19 14:10 AB (Rec: 12/14/19 16:09 AB [id number]) Physical Therapy Current Condition Current Condition Evaluation Date 12/14/19 Treatment Diagnosis R CVA; difficulty in walking Onset Date 12/13/19 Precautions Other Precautions BP M3 PT-IP Subjective Start: 12/14/19 15:47 Freq: NEEDED Status: Active Protocol: Document 12/14/19 14:10 AB (Rec: 12/14/19 16:09 AB [id number]) Subjective Physical Therapy Visit Type Type Initial Evaluation Visit Start Time 14:10 Visit Stop Time 14:45 Total Visit Minutes 35 Number of BANK NOTE DESIGNER Visits 0 Physical Therapy Visit Comments Patient Comments pt agreeable to do PT M4 PT-IP Mobility and Gait Start: 12/14/19 15:47 Freq: NEEDED Status: Active Protocol: Document 12/14/19 14:10 AB (Rec: 12/14/19 16:09 AB [id number]) PT-Bed Mobility Assessment Supine to Sit Supine to Sit Standby Assistance Sit to Supine Sit to Supine Standby Assistance PT-Transfer Assessment Sit to and From Stand Sit to and from Stand Contact Guard Assistance,1 Person Assistance,Use of Upper Extremities Equipment Transfer Assistive Device Gait Belt,Straight Cane Comments Mobility Comments BP in supine: 128/69. pt completed supine to sit SBA with HOB elevated. pt was able to sit on EOB SBA. c/o dizziness. BP 122/67. pt completed sit to stand CGA and was able to stand using SPC CGA but has to sit back down and unable to ambulate due to c/o dizziness. BP: 126/57. pt requested to just rest at this time. completed sit to supine SBA. positioned pt in bed. call light and table placed within reach. PT-Balance Assessment Sitting Balance and Reactions Static Sitting Balance Ability Good Dynamic Sitting Balance Ability Good Standing Balance and Reactions Static Standing Balance Ability Fair Dynamic Standing Balance Ability Fair Device Used SPC M5 PT-IP Objective Assessments Start: 12/14/19 15:47 Freq: NEEDED Status: Active Protocol: Document 12/14/19 14:10 AB (Rec: 12/14/19 16:09 AB [id number]) Orientation Orientation/Cognition Level of Alertness Alert Orientation Name,Place,Situation Safety Awareness Decreased Safety Awareness Gross Range of Motion Lower Extremity ROM Assessment Within Functional Limits Strength Lower Extremity Strength Assessment Within Functional Limits Sensation Assessment Sensation Gross Sensation Left UE Impaired Light Touch Impaired Proprioception (Position) Impaired Sensation Description Numbness Muscle Tone Muscle Tone WNL Yes M6 PT-IP Treatment Start: 12/14/19 15:47 Freq: NEEDED Status: Active Protocol: Document 12/14/19 14:10 AB (Rec: 12/14/19 16:09 AB [id number]) Physical Therapy Treatment Education Education Provided Safety M7 PT-IP Assessment and Plan Start: 12/14/19 15:47 Freq: NEEDED Status: Active Protocol: Document 12/14/19 14:10 AB (Rec: 12/14/19 16:09 AB [id number]) PT Summary Assessment and Plan Potential Rehabilitation Potential Good Status of Condition at Evaluation Evolving Summary Impairments Strength,Balance,Coordination, Sensation,Tone,Cognition,Bed Mobility,Transfers,Gait, Activity Tolerance Assessment Summary pt unable to tolerate much today due to c/o dizziness and was not able to ambulate with PT. will have to assess further to determine safe d/c plan. pt may require acute rehab or SNF rehab to improve strength, balance, activity tolerance and mobility. If pt goes home, will require assist and home health PT or outpt PT. Goals Bed Mobility Goal Independent Transfer Goal Independent,Cane Gait Goal Independent,Crutches Gait Distance 150 Other Goals up/down 1 step using SPC SBA Days to Meet Goals 5 Frequency of Treatment Frequency Of Treatment Twice a Day Treatment Plan Physical Therapy Treatment Plan Bed Mobility Training,Transfer Training,Gait Training, Therapeutic Exercise,Balance Retraining,Discharge Planning, Neuromuscular Re-ed, Coordination Retraining Recommendations To Nursing Amount of Assist Needed 1 Person Assist Discharge Recommendations PT Discharge Recommendations Home with Assistance,Home Health,SNF Rehab,Acute Rehab, Outpatient PT Other Discharge Recommendations depending on progress: acute rehab vs SNF vs home with assist with homehealth PT or outpt PT Transportation Needs at Discharge Private Vehicle,Wheelchair/ Cabulance
--- NOTE | 2019-12-14 14:44 | DIET.PN ---
Dietary Progress Note Assessment: 74y M admitted for CVA found to have subacute moderate right posterior temporal infarct and left cerebellar infarct referred to nutrition for pt report of reduced appetite. Pt hospitalized at [facility] prior to coming to c CVA sx. He reports his appetite is almost back to normal, says they stuffed me at other hospital (reports was tasty, healthy foods). Pt had 100% lunch today and anticipating salmon for dinner tonight. HT: 187.9cm WT: 87kg BMI: 24.6 Labs: A1c 6.2, HDL 33 L MNA: 10 Zana:19 Diet Order: Heart Healthy/Dysphagia Mechanical Soft/thins
--- NOTE | 2019-12-14 14:58 | PM.PN.1 ---
Subjective Subjective Date Patient Seen: 12/14/19 Time Patient Seen: 14:58 Interval history: Charbel Rodrigues is a 74-year-old male with past medical history of COPD, hypertension, hyperlipidemia who was admitted with an acute CVA that was noted on initial non con head CT and then confirmed by MRI today. He feels more weak today, and he was slightly more hypotensive. His blood pressure does very quite a lot during the day, occasionally 140s and occasionally 90 systolic. His home amlodipine was held today, but he was still hypotensive, and slightly dizzy when attempting to work with physical therapy. Have decreased his home medications and half and will try again tomorrow to work with physical therapy. Exam Vital Signs (past 8 hours): - 12/14/19 07:37 12/14/19 08:00 12/14/19 08:43 Temperature 97.7 F Pulse Rate 90 98 H Respiratory Rate 16 20 Blood Pressure 95/59 L Pulse Oximetry 93 92 91 12/14/19 10:00 12/14/19 12:00 12/14/19 12:13 Temperature 97 F L Pulse Rate 86 Respiratory Rate 20 Blood Pressure 141/69 H 83/57 L Pulse Oximetry 92 92 Oxygen Delivery Method Room Air Oxygen Flow Rate 0 Narrative Exam Narrative: GENERAL APPEARANCE: Well developed, well nourished, in no acute distress. SKIN: Inspection of the skin reveals no rashes, ulcerations or petechiae. HEENT: Normocephalic atraumatic, extraocular muscles are intact, oropharynx is clear and mucous membranes are moist, neck is supple without adenopathy NECK: Supple and symmetric. There was no thyroid enlargement, and no tenderness, or masses were felt. CHEST: Normal AP diameter and normal contour without any kyphoscoliosis. LUNGS: Auscultation of the lungs revealed no wheezes, rhonchi, or rales. CARDIOVASCULAR: There was a regular rate and rhythm without any murmurs, gallops, rubs. Peripheral pulses were 2+ and symmetric. ABDOMEN: Soft and nontender with normal bowel sounds. No ascites was noted. MUSCULOSKELETAL: There was no tenderness or effusions noted. Muscle strength and tone were normal. EXTREMITIES: No cyanosis, clubbing or edema. NEUROLOGIC: Alert and oriented x 3. Normal affect. Strength is +5/5 in the Upper Extremities and Lower Extremities Bilaterally. Sensation to touch was diminished on his face and left hand. There is a partial hemianopia and he is unable to see in his left lower visual field. Objective Labs Result Diagrams: 12/14/19 05:18 12/14/19 05:18 Labs: Laboratory Results - last 24 hr 12/14/19 12/14/19 12/14/19 05:18 05:18 05:18 WBC 8.9 RBC 3.20 L Hgb 11.4 L Hct 31.7 L MCV 99.2 MCH 35.7 H MCHC 36.0 RDW 13.1 Plt Count 297 Neut % (Auto) 61.8 Lymph % (Auto) 21.9 L [place] % (Auto) 11.4 Eos % (Auto) 4.4 H Baso % (Auto) 0.5 Neut # (Auto) 5500 Lymph # (Auto) 1900 [place] # (Auto) 1000 H Eos # (Auto) 400 Baso # (Auto) 0 Sodium 132 L Potassium 3.9 Chloride 100 Carbon Dioxide 29 BUN 24 H Creatinine 1.23 Estimated GFR 57.7 L BUN/Creatinine Ratio 19.5 Glucose 120 H Hemoglobin A1c 6.2 H Calcium 9.5 Magnesium 2.3 Total Bilirubin 1.2 Conjugated Bilirubin 0.0 Unconjugated Bilirubin 1.2 H AST 46 ALT 59 H Alkaline Phosphatase 94 Total Protein 6.9 Albumin 3.7 Globulin 3.2 Albumin/Globulin Ratio 1.2 Triglycerides 106 Cholesterol 133 L LDL Cholesterol, Calc 79 HDL Cholesterol 33 L TSH 12/14/19 05:18 WBC RBC Hgb Hct MCV MCH MCHC RDW Plt Count Neut % (Auto) Lymph % (Auto) [place] % (Auto) Eos % (Auto) Baso % (Auto) Neut # (Auto) Lymph # (Auto) [place] # (Auto) Eos # (Auto) Baso # (Auto) Sodium Potassium Chloride Carbon Dioxide BUN Creatinine Estimated GFR BUN/Creatinine Ratio Glucose Hemoglobin A1c Calcium Magnesium Total Bilirubin Conjugated Bilirubin Unconjugated Bilirubin AST ALT Alkaline Phosphatase Total Protein Albumin Globulin Albumin/Globulin Ratio Triglycerides Cholesterol LDL Cholesterol, Calc HDL Cholesterol TSH 2.12 Assessment & Plan Assessment & Plan narrative: Charbel Rodrigues is a 74-year-old male with past medical history of COPD, hypertension, hyperlipidemia who presented to the emergency room today complaining of stroke symptoms since yesterday evening, he continues to have a partial hemianopia and some facial numbness today. His CT scan was positive for a subacute infarct and he is admitted to Medicine for further evaluation and monitoring after an acute CVA. 1. CVA, acute, present on admission - CT head non-contrast in the ER showing, a Subacute moderate right posterior temporal infarct and an Old left cerebellar infarct. -patient received full-dose aspirin in the emergency room, continue 81 mg daily. Giving presenting stroke scale of 4 by ER provider this is outside the range for DAPT therapy. -will change to high-intensity statin at Lipitor 80 mg daily from home 20 mg. -A1c, 6.2%, TSH 2.12. Total cholesterol 133, LDL 79, HDL 33. -continue telemetry to monitor for atrial fibrillation. Consider outpatient holter monitor. -echocardiogram is currently performed and read is pending -MR stroke: Moderately sized subacute infarction involving the right frontoparietal region, and also involving a mild portion of the posterior right temporal lobe. 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 No significant carotid stenosis can be seen. -will continue dysphagia diet at this time pending speech evaluation -PT and OT evaluations 2. COPD, chronic, with recent exacerbation -will change home Symbicort to Advair given formulary -RT eval and treat -as needed albuterol nebulizers for shortness of breath -goal oxygenation greater than 88% 3. Hypertension, chronic -Have decreased home BP medications due to hypotensions today. Decreased lisinopril to 20 mg, discontinued amlodipine and chlorthalidone. 4. Hyperlipidemia, chronic -will change statin therapy as noted above 5. Pre-diabetes, new diagnosis - A1c of 6.2%, roller embosser consultation and patient was counseled on dietary modifications. 6. 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 - recommended outpatient follow up at [facility] where ultrasound was obtained. Records are available in patient's paper chart. Code: Full, states that surrogate decision maker is his daughter or sister, he cannot decide between the 2 at this time. DVT: Heparin subcu Dispo: Remains inpatient, anticipate discharge home vs less likely acute rehab depending on PT evaluation.
--- NOTE | 2019-12-14 15:30 | CM.IDA ---
Initial DCP Assessment Note: Patient is a 74 yo male, resident of [place]. Pt presents w/ acute CVA, DR Theodore indicates this afternoon there have been two lesions identified on MRI PCP: Veda Costello Payer: [employer] Reviewed chart. Dr Theodore thinks patient may be ready to DC home vs Acute Inpt Rehab w/in the next 24 hrs, pending progress w/therapy team. Met w/patient and introduced role. Patient admits I was just about to fall asleep when you came in and so kept the conversation brief. Patient lives w/his grandson Devon who is 36 yo, patient also lives next door to dtr Iram and sister Caridad P# [phone]. Patient expects to return home w/assist from his family but would consider acute inpt stroke rehab if it is recommended tomorrow after his therapy sessions. AIRCRAFT ARMORER/DCP team will follow closely for coordination of DC plan; likely home w/family but patient may be a good candidate for Acute Inpt Rehab (?) LAURENCE Ballesteros Discharge Planning/Care Management CM Discharge Assessment Start: 12/14/19 15:12 Freq: Status: Active Protocol: Document 12/14/19 15:12 PALAK (Rec: 12/14/19 15:30 PALAK [id number]) Discharge Planning Assessment Assigned Deal Architect LAURENCE Villarreal DPOA/Assigned Designee Name Iram Duron dtr Contact Information [phone] Advance Directives? No History Provided By Patient Prior Living Arrangements House Household Members family Type of transporation used prior to Drives own vehicle admit Independent with ADL's Yes Is patient alert and oriented? Yes
--- NOTE | 2019-12-14 16:53 | ST.IPIE ---
Visit Care Team Role Provider Type Veda Costello MD Primary Care Provider Physician Specialty: Family Practice Address: [address] [place] [address], [facility], [place], [address] Email: [email or web address] Charbel aMtt DO Emergency Provider Physician Referring Provider Specialty: Emergency Medicine Address: [address] [place] [address], [id number] Email: [email or web address] Leonard Theodore DO Admit Provider Physician Attending Provider Specialty: Internal Medicine Address: [address] [place] [address], [id number] Email: [email or web address] Diagnoses Cerebral infarction, unspecified (12/13/19) Past Medical History (Last Reviewed 12/13/19 @ 10:25 by Charbel Matt DO) ADHD (attention deficit hyperactivity disorder) (Chronic Medical 1945) Alcohol abuse (Resolved Social Hx 1961) [id number] Arthritis (Chronic Medical 1945) Cataract (Resolved Medical 2004) Chicken pox (Resolved Medical 1950) Chronic back pain (Chronic Medical 1972) COPD (chronic obstructive pulmonary disease) (Suspected Medical 2016) Not diagnosed Hearing loss (Chronic Medical 1994) Minor Hypertension (Chronic Medical 2016) Measles (Resolved Medical 1948) Mumps (Resolved Medical 1951) Recurrent sinusitis (Resolved Medical 1994) Rheumatic fever (Resolved Medical 1961) Tinnitus (Chronic Medical 1945) Light Vertigo (Chronic Medical 2016) 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 Leonard Theodore Reason for Referral CVA Setting Assessment Location Acute Care Visit Type Note Type Initial Evaluation Next Note Type Next Note Type Treatment Note Patient Information Identification Type Name,ID Card History Per H&P: Charbel Rodrigues is a 74-year-old male with past medical history of COPD, hypertension, hyperlipidemia who presented to the emergency room today complaining of stroke symptoms since yesterday evening, he continues to have a partial hemianopia and some facial numbness after arrival to the floor. His CT scan was positive for a subacute infarct and he is admitted to Medicine for further evaluation and monitoring after an acute CVA. CT scan - head: Radiologist's impression: 1. Subacute moderate right posterior temporal infarct. 2. Old left cerebellar infarct. Subjective Observations The pt was asleep but awoke to auditory stimuli upon LIFT TRUCK OPERATOR's arrival. He stated he was not hungry for oral intake but was agreeable to limited trials for evaluation of swallow. He reported occasional WFDs but felt they were consistent with age and not new since CVA. He did state ongoing difficulty with speech articulation, feeling that his tongue was thick and required much effort to speak as he was. He reported mild numbness at left cheek and left hand, difficulty grasping and holding objects with left hand . He denied swallow difficulties. Evaluation Liquids Trialed Thin Solids Trialed Puree,Mechanical Soft,Regular Administration Type Cup Single Sip,Controlled Cup Sip,Cup Consecutive Sips,Straw ,Self-Feeding Oral Impairment WFL Oral Strategies Upright at 90 degrees, Controlled Bite/Sip Size Oral Phase Comments Oral Peripheral Exam: Symmetrical features WFL of strength, coordination and ROM . Mild lingual tremor was observed with volitional movements; not observed in spontaneous speech. Hyolaryngeal elevation/ excursion WNL via palpation. Pt has natural dentition in moderate condition with several upper and lower molars missing. He denies difficulty with mastication. There are no foods or liquids he avoids d/t difficulty with mastication or swallowing. Baseline diet is regular foods , thin liquids. Oral Phase: WNL. Good oral containment, timely swallow trigger. No oral residue or pocketing. Mastication is a mix of anterior munching and rotary form, consistent with dentition. Pharyngeal Impairment WNL Pharyngeal Strategies Sitting Upright (90 deg) Pharyngeal Phase Comments The pt exhibited no overt s/sx of aspiration with all trials . Voice remained clear throughout. The pt was able to self-feed with moderate effort to hold objects with left hand. He is right handed and without right hand deficits. Findings Impressions Pt presents with normal swallow function. 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 Leonard Theodore Reason for Referral CVA Mental Status Mental Status Alert,Responsive,Cooperative Subjective Observations Subjective The pt was able to provide case history, including CT Head findings. He exhibited advanced vocabulary and understanding of medical terminology throughout the evaluation. Oral Motor Lips Function WNL Tongue Function WNL Involuntary Movement Mild tremor w/ volitional movements; not observed in spontaneous speech Jaw Function WNL Soft Palate Function WNL Respiration/Phonation Phonation Stimulus Conversational speech, Structured speech tasks; Reading tasks Quality WNL Function WNL Loudness WNL Diadochokinetic Rates P^ Quality WNL T^ Quality WFL Comments Mildly slower than /p/ and /k/ . Pt reported increased effort required K^ Quality WNL P^T^K^ Quality WNL Comments Pt reported increased effort required Speech Intelligibility Phoneme Severity Mildly Impaired Comments /t/, /s/, /r/ Word Severity WNL Sentence Severity WNL Conversation Severity WNL Awareness/Strategy Use Description Type of awareness/use Uses consistently Other 100% intelligible at normal speech rate; Pt reports effort required. 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 Pt WNL of categorical and responsive naming, complex yes/no questions, and verbal imitation. Automatic speech: Days of week, months of year without difficulty. Pt recited alphabet, stopping at T; he required verbal prompt and wait time prior to completing alphabet. Stated, Things seem a bit foggy. Reading: Pt read words, phrases and sentences in large font with frequent left-side neglect, omitting first words and requiring re-reading of sentence because that doesn't make sense d/t omission of first words on 2 lines. The pt acknowledged left upper/lower quadrant visual impairments, new since CVA. Expressive and Receptive language skills WFL with exception of left-side visual neglect impacting reading ability. Recommend cognitive evaluation. Prognosis Rehabilitation Potential Excellent Recommendations Treatment Recommended Yes Therapy Recommendations ST to follow pt through hospital course targeting treatment of dysarthria. Short Term Goals The pt will perform oral motor exercises to improve ease and clarity of speech production. Lime Sludge Mixer Goals The pt will report increased ease of speech production and maintain ability to communicate effectively with medical team and significant others. Patient/Family Education Education Described results of evaluation,Patient Understanding
--- NOTE | 2019-12-14 18:32 | DI.US.S_ITS ---
PROCEDURE: US PERIPH VENOUS LOW EXTREM BI INDICATIONS: BILAT LEG SWELLING TECHNIQUE: Real-time imaging, as well as color and pulse Doppler interrogation, were performed of the deep veins of both legs from the inguinal ligament to the popliteal fossa. COMPARISON: None. FINDINGS: Right: The common femoral, femoral and popliteal veins are normally compressible, and free of intraluminal thrombus. Color and pulse Doppler demonstrate normal phasic intravascular flow. There is normal augmentation response to distal compression maneuver. Left: The common femoral, femoral and popliteal veins are normally compressible, and free of intraluminal thrombus. Color and pulse Doppler demonstrate normal phasic intravascular flow. There is normal augmentation response to distal compression maneuver. IMPRESSION: No evidence of deep venous thrombosis. Dictated by: Deni Sheriff M.D. on 12/14/2019 at 20:02 Approved by: Deni Sheriff M.D. on 12/14/2019 at 20:03
[2019-12-14] MEDS: ATORVASTATIN 20 MG TABLET 80 MG PO (20:01)
[2019-12-15] VITALS (10 sets, daily range): BP systolic 110–148; BP diastolic 59–77; PULSE 60–97; RESP 16–20; TEMP 36.6–37.1; O2SAT 89–97
[2019-12-15 05:17] LABS: Add Manual Diff / Slide Review NO; Basophils Absolute Auto 100 /uL (0-100); Basophils Percent Auto 0.8 % (0-2); Eosinophils Absolute Auto 300 /uL (0-450); Eosinophils Percent Auto 3.4 % (2-4); Hematocrit 31.4 % (41-53); Hemoglobin 11.2 g/dL (13.5-17.5); Lymphocytes Absolute Auto 2400 /uL (1100-4500); Lymphocytes Percent Auto 24.4 % (25-40); Mean Corpuscular HGB Conc 35.7 % (30-36); Mean Corpuscular Hemoglobin 34.9 PG (26-34); Mean Corpuscular Volume 97.9 fL (80-100); Monocytes Absolute Auto 1100 /uL (0-900); Monocytes Percent Auto 10.9 % (3-14); Neutrophils Absolute Auto 5900 /uL (1500-7000); Neutrophils Percent Auto 60.5 % (50-75); Platelet Count 320 X10^3/uL (150-400); Red Blood Cell Count 3.21 X10^6/uL (4.5-5.9); Red Cell Distribution Width 13.1 % (11.6-14.8); White Blood Cell Count 9.7 X10^3/uL (4.5-11.0)
[2019-12-15 05:24] LABS: Alanine Aminotransferase 48 IU/L (<50); Albumin 3.7 g/dL (3.5-5.0); Albumin Globulin Ratio 1.1 (1.0-2.8); Alkaline Phosphatase 95 U/L (38-126); Aspartate Aminotransferase 33 IU/L (17-59); BUN Creatinine Ratio 21.9 (6-22); Bilirubin Total 0.8 mg/dL (0.2-1.3); Bilirubin Unconjugated 0.8 mg/dL (0.0-1.1); Blood Urea Nitrogen 28 mg/dL (9-20); Calcium 9.5 mg/dL (8.4-10.2); Carbon Dioxide 26 mmol/L (22-32); Chloride 102 mmol/L (98-107); Estimated Glomerular Filt Rate 55.1 mL/min (>60); Globulin 3.3 g/dL (1.7-4.1); Glucose 127 mg/dL (80-110); HEMOLYSIS < 15 (0-50); Magnesium 2.3 mg/dL (1.6-2.3); Sodium 134 mmol/L (137-145)
[2019-12-15] MEDS: ASPIRIN EC 81 MG TABLET PO (08:12)
[2019-12-15] MEDS: HEPARIN 5,000 UNIT/ML VIAL 5000 UNIT SUBCUT ×2 (08:12→20:46)
[2019-12-15] MEDS: lisinopriL 20 MG TABLET PO (08:12)
[2019-12-15] MEDS: DOCUSATE 100 MG CAPSULE PO ×2 (08:12→20:46)
[2019-12-15] MEDS: polyethylene glycoL 3350 17 GM POWD.PACK PO (08:12)
[2019-12-15] MEDS: SODIUM CHLORIDE 0.9% FLUSH 10 ML IV ×2 (08:12→20:46)
[2019-12-15] MEDS: ALBUTEROL HFA 60 PUFF/8 GM INH INH (08:20)
[2019-12-15] MEDS: FLUTICASONE/SALMETEROL 100/50 60 PUFF DISKUS INH ×2 (08:20→20:35)
--- NOTE | 2019-12-15 09:14 | OT.IP.TRT ---
Current Diagnoses Cerebral infarction, unspecified (12/13/19) Occupational Therapy Treatment Note M2 OT-IP Current Condition Start: 12/14/19 12:33 Freq: Status: Active Protocol: Document 12/14/19 12:33 CGR (Rec: 12/14/19 12:54 CGR [id number]) Occupational Therapy Current Condition Current Condition Evaluation Date 12/14/19 Treatment Diagnosis Sub acute R posterior temporal and L cerebellar infarcts Diagnosis Onset Date 12/13/19 M3 OT- IP Subjective and Pain Start: 12/14/19 12:33 Freq: Status: Active Protocol: Document 12/15/19 09:24 CGR (Rec: 12/15/19 09:49 CGR [email or web address]) OT- Subjective Occupational Therapy Visit Type Type Progress Note Visit Start Time 08:45 Visit Stop Time 09:14 Total Visit Minutes 29 Occupational Therapy Visit Comments Patient Comments Is it really 3PM already? OT Pain Assessment Pain When Pain Assessed At Rest Pain Present Pain Present Denied Pain M4 OT- IP ADL's Start: 12/14/19 12:33 Freq: Status: Active Protocol: Document 12/15/19 09:24 CGR (Rec: 12/15/19 09:49 CGR [email or web address]) OT [id number] Comments OT Self-Feeding Comments Pt has already completed breakfast. OT ADL-Grooming Comments OT Grooming Comments Pt not performed OT ADL-Oral Care Comments Oral Care Comments Pt declined OT ADL-Dressing Comments OT Dressing Comments Pt declined OT ADL-Toileting Comments OT Toileting Comments Pt declined OT ADL-Bathing Comments OT Bathing Comments Pt declined, states he is just too tired. M5 OT- IP IADL's Start: 12/14/19 12:33 Freq: Status: Active Protocol: Document 12/14/19 12:33 CGR (Rec: 12/14/19 12:54 CGR [id number]) OT-Instrumental Activities of Daily Living Deficits IADL Deficits Identified Deficits Home Safety Awareness Awareness of Need for Assistance at Home Good Awareness Ability to Problem Solve Emergency Able to Problem Solve Situations Home Safety Comments Concerns for true understanding of visual deficit. 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 Discussed with pt that he would not be a safe passenger coach driver at this time with the vision deficit that he is experiencing. M6 OT- IP Functional Cognition Start: 12/14/19 12:33 Freq: Status: Active Protocol: Document 12/15/19 09:24 CGR (Rec: 12/15/19 09:49 CGR [email or web address]) Cognitive Factors Limiting Selfcare Function Cognitive Ability Level of Alertness Alert Patient Orientation Name,Age,Year,Place,Situation Attention Span Ability Capable of Focused Attention Ability to Follow Commands Able to Follow One Step Commands with Increased Time, Able to Follow One Step Commands with Repetition Cognitive Tests SLUMS Pt participated in SLUMS assessment on this date. Pt got a but needed the addition/subtraction question reread to him multiple times before giving correct answers. Pt's clock face indicates significant L neglect with nothing on the left side of the clock face and numbers incorrectly placed on the right side of the clock. Pt also had difficulty with the short term memory and ability to name animals. Pt's score indicates a mild to moderate neurocognitive disorder. M7 OT- IP Mobility and Balance Start: 12/14/19 12:33 Freq: Status: Active Protocol: Document 12/15/19 09:24 CGR (Rec: 12/15/19 09:49 CGR [email or web address]) OT- Bed Mobility Assessment Supine to Sit Supine to Sit Assist Standby Assistance Sit to Supine Sit to Supine Assist Standby Assistance Scooting Scooting to Edge of Bed Standby Assistance OT- Balance Assessment Sitting Balance and Reactions Static Sitting Balance Ability Fair M8 OT- IP Objective Assessments Start: 12/14/19 12:33 Freq: Status: Active Protocol: Document 12/15/19:24 CGR (Rec: 12/15/19 09:49 CGR [email or web address]) OT Sensation Assessment Comments Summary Comments Pt states that his sensation is better to the L hand noting that he has typical feeling to the volar side of the hand but states that the dorsal side of this L hand still feels rubbery Edema Edema Absent M9 OT- IP Assessment and Plan Start: 12/14/19 12:33 Freq: Status: Active Protocol: Document 12/15/19 09:24 CGR (Rec: 12/15/19 09:49 CGR [email or web address]) OT Summary Assessment and Plan Potential Rehabilitation Potential Excellent Analytic Complexity at Evaluation Low Summary OT Impairments Coordination,Functional Cognition,Functional Mobility, Self-Feeding,Grooming,Dressing ,Toileting,Bathing,Shower Transfers,Activity Tolerance Progress Towards Goals Progressing Toward Goals Assessment Summary Pt presents today with poor endurance, complaints of feeling worse than yesterday, and noted decline in his L neglect. Pt participated in SLUMS assessment today seated EOB but declines further activity stating that he does not feel well. Discussed with MD, CM, and P.T. With increased L neglect and cognitive deficits noted, pt now likely to be a good candidate for Acute rehab. Pt is pleasant and agreeable to activity dispite feeling poor. He is impulsive, at start of session stating that we should just get up and start moving dispite dizziness, but is easy to reason with safety issues. Pt would be a good candidate for acute rehab given current deficits. Goals Self-Feeding Goal Independent Grooming Goal Independent Dressing Goal Independent Toileting Goal Independent Bathing Goal Independent Toilet Transfer Goal Independent Shower Transfer Goal Independent Days to Meet Goals 5 Frequency of Treatment Frequency Of Treatment Once a Day Treatment Plan OT Treatment Plan ADL Training,Functional Cognition Training,Functional Mobility,Therapeutic Exercises ,Patient/Family Education, Discharge Planning Discharge Recommendations OT Discharge Recommendations Acute Rehab Other Discharge Recommendations Pt with increased cog deficits and L neglect. Now recommending acute rehab. Home Equipment Needs tub transfer bench. Transportation Needs at Discharge Private Vehicle
--- NOTE | 2019-12-15 10:06 | CM.DPC ---
Addendum entered by Jeanie Mcdaniel R.N. 12/15/19 11:02: Called and left a voice message for the patients sister artem to let her know about acute rehab. CM also called [facility] to review patient for possible admission, CM/RN will send new clinical information when it is available to [facility] and see if he will qualify for services. Jeanie Mcdaniel RN Addendum entered by Jeanie Mcdaniel R.N. 12/15/19 10:45: Spoke with [facility] acute rehab and Gabbi stated that the patient would not be a good canidate for inpatient rehab due to his current PT, OT and Speech notes, CM let Gabbi know that he is currently not doing as well as he was yesterday when those notes were written. Gabbi asked us to send todays notes over when they are in and she will review it. Dr. Eagle notified as well as PT/ OT. CM/RN will send todays notes over when they are in. Patient currently on COVID precautions while being tested. Jeanie Mcdaniel RN. Original Note: DCP continued: CM/RN called Gabbi at [facility] to have them review for possible admission. Patient was having more difficulty today with OT, PT and speech and it was recommended that patient go to Acute Rehab. CM/RN spoke with Dr eagle who agreed and CM/Rn called and faxed referral to [facility] who is reviewing. Dr. Eagle notified that patient will need - COVID prior to admission. Jeanie Mcdaniel RN
--- NOTE | 2019-12-15 10:26 | P.PN_ITS ---
Subjective Subjective Date Patient Seen: 12/15/19 Interval history: Charbel Rodrigues is a 74-year-old male with a past medical history significant for hypertension, hyperlipidemia, and COPD who presented to the ED complaining of stroke-like symptoms including partial hemianopsia and facial numbness x1 day. The patient is resting in bed comfortably. He is covered in head to toe with bl ankets and reports he is frequently cold in the hospital. He denies fever or chills. The patient endorses fatigue. He is mildly irritable, complains of constant interruptions and lack of sleep and reports he is having a bad day. The patient now has left-sided salma-neglect with persistent left-sided hemianopsia and left-sided weakness. Continue working with physical and occupational therapy. Continue speech therapy for cognitive training. He endorses mild right-sided frontal headache which he reports is located behind right eye and on side of right scientology. He has no other complaints and denies sore throat, cough, shortness of breath, chest pain, abdominal pain, nausea, vomiting, fever, chills, dysuria, diarrhea or constipation. He is voiding without difficulty. He has not had a bowel movement since admission and a bowel regimen has been implemented. He is up ambulating with assistance. Exam Vital Signs (past 8 hours): - 12/15/19 04:10 12/15/19 08:00 12/15/19 08:21 Temperature 98.0 F 97.8 F Pulse Rate 80 92 H 94 H Respiratory Rate 16 19 16 Blood Pressure 126/64 148/66 H Pulse Oximetry 92 91 97 Oxygen Delivery Method Room Air Oxygen Flow Rate 0 Narrative Exam Narrative: General: Older male lying in bed and in no acute distress, well-developed, well-nourished, appropriately interactive. HEENT: Normocephalic, atraumatic. External ears without defect. Pupils equal, round, and reactive to light. Anicteric sclerae, moist conjunctivae, and no lid lag. Oropharynx free of erythema and cobble stoning with moist mucosa. No facial droop. Neck: Supple with full range of motion. No bruits. No lymphadenopathy or thyromegaly. Cardiovascular: Regular rate and rhythm without murmurs, rubs, or gallops appreciated. Pulmonary: Clear to auscultation bilaterally without crackles, wheezes, or rhonchi. Normal respiratory effort with no use of accessory muscles. Abdomen: Soft, bowel sounds present nontender, nondistended. No hepatosplenomegaly or masses appreciated. Extremities: No clubbing, cyanosis, or edema. Skin: Normal temperature, turgor, and texture; no rash, ulcers, or subcutaneous nodules appreciated. Neurological: Left-sided hemianopsia in left lower quadrant, left-sided salma- neglect, mild left-sided weakness in upper and lower extremities +4/5 otherwise normal muscle strength, tone, and bulk in right-sided extremities. Decreased sensation in left hand and face. No facial droop. Psychiatric: Slightly irritable mood and flat affect. Alert and oriented to person, place, and time. Objective Labs Result Diagrams: 12/15/19 05:00 12/15/19 05:00 Labs: Laboratory Results - last 24 hr 12/15/19 12/15/19 05:00 05:00 WBC 9.7 RBC 3.21 L Hgb 11.2 L Hct 31.4 L MCV 97.9 MCH 34.9 H MCHC 35.7 RDW 13.1 Plt Count 320 Neut % (Auto) 60.5 Lymph % (Auto) 24.4 L [place] % (Auto) 10.9 Eos % (Auto) 3.4 Baso % (Auto) 0.8 Neut # (Auto) 5900 Lymph # (Auto) 2400 [place] # (Auto) 1100 H Eos # (Auto) 300 Baso # (Auto) 100 Sodium 134 L Potassium 4.0 Chloride 102 Carbon Dioxide 26 BUN 28 H Creatinine 1.28 H Estimated GFR 55.1 L BUN/Creatinine Ratio 21.9 Glucose 127 H Calcium 9.5 Magnesium 2.3 Total Bilirubin 0.8 Conjugated Bilirubin 0.0 Unconjugated Bilirubin 0.8 AST 33 ALT 48 Alkaline Phosphatase 95 Total Protein 7.0 Albumin 3.7 Globulin 3.3 Albumin/Globulin Ratio 1.1 Assessment & Plan Assessment & Plan narrative: Charbel Rodrigues is a 74-year-old male with a past medical history significant for hypertension, hyperlipidemia, and COPD who presented to the ED complaining of stroke-like symptoms including partial hemianopsia and facial numbness x1 day. 1. Subacute right-sided CVA, present on admission. Active. -Patient presented after being discharged from [facility] with headache with slurred speech, left-sided facial numbness, left hand tingling and left-sided weakness. -Initial NIH score 4. Repeat NIH score 3 for left-sided salma-anopsia, left-sided salma-neglect and left-sided sensory decreased sensation of hand and face. -CT brain without contrast demonstrated subacute moderate right posterior temporal infarct and an old left cerebellar infarct. -MR stroke protocol demonstrated moderate sized subacute infarction involving the right frontoparietal region, and also involving a mild portion of the posterior right temporal lobe. 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 No significant carotid stenosis can be seen. -Received full-dose aspirin in ED. Patient not considered a tPA or interventional candidate outside the window. -EKG demonstrated sinus rhythm. Continue to monitor closely on telemetry. Patient continues to be in sinus rhythm without significant ectopy. Consider outpatient Holter monitor. -Due to recent left renal mass seen on ultrasound at [facility] ordered bilateral venous Doppler ultrasound to rule out DVT which was negative. -Risk stratified with hemoglobin A1c 6.2% indicative of prediabetes and fasting lipid panel which demonstrated fair lipid control with total cholesterol 133, triglycerides, LDL 79 (goal <70) and HDL 33. -Echocardiogram study quality technically difficult due to body habitus but did not demonstrate embolic source or interatrial shunt. -Continue stroke prophylaxis with aspirin 81 mg daily and atorvastatin increased from 20 mg to 80 mg daily at bedtime. -Continue physical, occupational and speech therapy evaluation and treatment. 2. COPD with bronchiectasis and recent exacerbation, chronic, present on admission. Stable. -Does not represent COPD exacerbation. -Continue home equivalent of Symbicort and home albuterol inhaler 2 puffs every 4 hours. -Continue respiratory therapy evaluation treatment. May use supplemental oxygen to maintain oxygen saturations 88-92%. Patient has not required supplemental oxygen. 3. Hypertension, chronic, present on admission. Stable. -Continue home metoprolol tartrate 100 mg twice daily and lisinopril decreased from 40 mg to 20 daily due to mild hypotension on 12/13. -Held amlodipine and chlorthalidone for now and will monitor BP and restart when and if appropriate. 4. Hyperlipidemia, chronic, present on admission. Stable. -Fasting lipid panel demonstrated fair lipid control as above. -Continue atorvastatin 80 mg daily at bedtime as above. 5. Prediabetes, new diagnosis, present on admission. Stable. -Hemoglobin A1c 6.2% indicative of prediabetes. -Counseled patient extensively on lifestyle modification including: Diet and exercise. -Consulted dietitian and we appreciate her time and recommendations. 6. Left renal mass, recently discovered at outside facility, present on admission. Presumed stable. -Recommended outpatient follow up at [facility] where ultrasound was obtained. Records are available in patient's paper chart. Code status: Full code. Patient designates surrogate decision maker as his daughter or sister, he cannot decide between the 2 at this time. DVT prophylaxis: SQ heparin Disposition: Patient likely to discharge to acute inpatient rehabilitation possibly tomorrow pending authorization. Scores NIHSS Level of Conciousness: Alert, keenly responsive Ask month/age: Answers both questions correctly. Open/close eyes, close hand: Performs both tasks correctly Best gaze horizontal: Normal Visual castaneda: Partial hemianopia Facial palsy: Normal symetrical movement Left arm drift: No drift for full 10 sec Right arm drift: No drift for full 10 sec Left leg drift: No drift for full 5 sec Right leg drift: No drift for full 5 sec Limb ataxia: Absent Sensory on face/arms/legs: Mild to moderate sensory loss, can tell touch Best language: No aphasia, normal Dysarthria: Normal Extinction or inattention: Visual, tactile, auditory, spacial or personal inattention to stimuli Total NIH Stroke scale score: 3
--- NOTE | 2019-12-15 13:10 | ST.IPTN ---
Visit Care Team Role Provider Type Veda Costello MD Primary Care Provider Physician Address: [address] [place] [address], [address], [place], [address] Charbel Matt DO Emergency Provider Physician Referring Provider Address: [address] [place] [address], [id number] Leonard Theodore DO Admit Provider Physician Attending Provider Address: [address] [place] [address], [id number] PASTRY ARTIST Treatment Note PASTRY ARTIST Treatment Note Start: 12/15/19 12:58 Freq: Status: Active Protocol: Document 12/15/19 12:59 MG (Rec: 12/15/19 13:10 MG [id number]) Speech Pathology Treatment Note Session Time Visit Start Time 11:20 Visit Stop Time 11:50 Total Visit Minutes 30 Visit Information Visit Number 2 Setting Treatment Setting Acute Care Visit Type Note Type Treatment Note General Information General Information Per H&P: Charbel Rodrigues is a 74-year-old male with past medical history of COPD, hypertension, hyperlipidemia who presented to the emergency room today complaining of stroke symptoms since yesterday evening, he continues to have a partial hemianopia and some facial numbness after arrival to the floor. His CT scan was positive for a subacute infarct and he is admitted to Medicine for further monitoring after an acute CVA. CT scan - head: Radiologist's impression: 1. Subacute moderate right posterior temporal infarct. 2. Old left cerebellar infarct. Subjective Identification Type Name,ID Wristband Observations/Patient Presentation Pt was sitting upright in bed and alert. Pt was agreeable to PASTRY ARTIST entering the room and working with him. He was open to home practice program and fully participated in treatment. Chief Complaint(s) Speech Patient Knowledge/Awareness of PASTRY ARTIST Role Good in Treatment Patient/Caregiver Compliance with Home Good Exercise Program Objective Short Term Goals Pt will participate in home exercise program to strengthen his articulators (e.g., tongue, lips). Senior Care Goals Pt will follow home exercise program and report improved speech. Treatment Activities PASTRY ARTIST went over word and sentence lists for r, s, and t as pt had reported previously that those sounds he felt he had a hard time producing during his evaluation. PASTRY ARTIST also went over oral motor exercises for tongue and lips. Pt practiced in front of the PASTRY ARTIST and was successful at independently following the protocols. He had no further questions before PASTRY ARTIST left the room. Assessment Patient Response to Treatment Good Rehab Potential Good Impairments Identified Articulation,Oral Motor Reviewed with Patient Home Exercise Program Patient/Caregiver Understanding Good Plan Therapeutic Contents Oral Motor Training Provided Patient/Caregiver Instruction Home Exercise Program
--- NOTE | 2019-12-15 15:55 | PT.IPTN ---
Current Diagnoses Cerebral infarction, unspecified (12/13/19) Physical Therapy Treatment Note M2 PT-IP Current Condition Start: 12/14/19 15:47 Freq: NEEDED Status: Active Protocol: Document 12/14/19 14:10 AB (Rec: 12/14/19 16:09 AB [id number]) Physical Therapy Current Condition Current Condition Evaluation Date 12/14/19 Treatment Diagnosis R CVA; difficulty in walking Onset Date 12/13/19 Precautions Other Precautions BP M3 PT-IP Subjective Start: 12/14/19 15:47 Freq: NEEDED Status: Active Protocol: Document 12/15/19 14:40 LJ (Rec: 12/15/19 15:55 LJ [id number]) Subjective Physical Therapy Visit Type Type Treatment Note Visit Start Time 14:40 Visit Stop Time 14:52 Total Visit Minutes 12 Notes Pt in bed requesting to get up and use the toilet M4 PT-IP Mobility and Gait Start: 12/14/19 15:47 Freq: NEEDED Status: Active Protocol: Document 12/15/19 14:40 LJ (Rec: 12/15/19 15:55 LJ [id number]) PT-Bed Mobility Assessment Supine to Sit Supine to Sit Standby Assistance Sit to Supine Sit to Supine Standby Assistance PT-Transfer Assessment Sit to and From Stand Sit to and from Stand Standby Assistance,1 Person Assistance,Use of Upper Extremities Equipment Transfer Assistive Device Gait Belt,Straight Cane Comments Mobility Comments Pt sitting in bed upon arrival . He states he needs to use the toilet. He swung his legs over the side of the bed and scooted to the edge impulsively and stood before gait belt was applied. Refused use of gait belt. Pt then walked to the bathroom using SPC and reached out for the wall as he went through the doorway. Pt then sat onto the toilet to void. After voiding pt exited the bathroom and walked back to the bed, pausing for several seconds while BAGGAGE SCREENER straightened the bed . Pt sat on side of bed and got himself back into bed. Gait Assessment Comments Gait Comments see mobility section M5 PT-IP Objective Assessments Start: 12/14/19 15:47 Freq: NEEDED Status: Active Protocol: Document 12/14/19 14:10 AB (Rec: 12/14/19 16:09 AB [id number]) Orientation Orientation/Cognition Level of Alertness Alert Orientation Name,Place,Situation Safety Awareness Decreased Safety Awareness Gross Range of Motion Lower Extremity ROM Assessment Within Functional Limits Strength Lower Extremity Strength Assessment Within Functional Limits Sensation Assessment Sensation Gross Sensation Left UE Impaired Light Touch Impaired Proprioception (Position) Impaired Sensation Description Numbness Muscle Tone Muscle Tone WNL Yes M6 PT-IP Treatment Start: 12/14/19 15:47 Freq: NEEDED Status: Active Protocol: Document 12/15/19 14:40 LJ (Rec: 12/15/19 15:55 [id number]) Physical Therapy Treatment Education Education Provided Safety M7 PT-IP Assessment and Plan Start: 12/14/19 15:47 Freq: NEEDED Status: Active Protocol: Document 12/15/19 14:40 LJ (Rec: 12/15/19 15:55 [id number]) PT Summary Assessment and Plan Potential Rehabilitation Potential Good Status of Condition at Evaluation Evolving Summary Impairments Strength,Balance,Coordination, Sensation,Tone,Cognition,Bed Mobility,Transfers,Gait, Activity Tolerance Assessment Summary Pt demonstrated some impulsiveness with movement this session but was moving by himself using the SPC. He ambulated with slight antalgic gait but was not using cane for support. He reported to be very short of breath and slightly dizzy after getting back into bed but his O2 was at 94% Goals Bed Mobility Goal Independent Transfer Goal Independent,Cane Gait Goal Independent,Crutches Gait Distance 150 Other Goals up/down 1 step using SPC SBA Days to Meet Goals 5 Frequency of Treatment Frequency Of Treatment Twice a Day Treatment Plan Physical Therapy Treatment Plan Bed Mobility Training,Transfer Training,Gait Training, Therapeutic Exercise,Balance Retraining,Discharge Planning, Neuromuscular Re-ed, Coordination Retraining Recommendations To Nursing Amount of Assist Needed Standby Assistance Discharge Recommendations PT Discharge Recommendations Home with Assistance,Home Health,SNF Rehab,Acute Rehab, Outpatient PT Other Discharge Recommendations depending on progress: acute rehab vs SNF vs home with assist with homehealth PT or outpt PT Transportation Needs at Discharge Private Vehicle,Wheelchair/ Cabulance
[2019-12-15] MEDS: METOPROLOL IR 50 MG TABLET 100 MG PO (20:46)
[2019-12-15] MEDS: ATORVASTATIN 20 MG TABLET 80 MG PO (20:46)
[2019-12-16] VITALS (11 sets, daily range): BP systolic 97–149; BP diastolic 54–78; PULSE 64–78; RESP 16–19; TEMP 36.2–36.8; O2SAT 92–96
[2019-12-16 05:27] LABS: Add Manual Diff / Slide Review NO; Basophils Absolute Auto 100 /uL (0-100); Basophils Percent Auto 0.9 % (0-2); Eosinophils Absolute Auto 300 /uL (0-450); Eosinophils Percent Auto 3.2 % (2-4); Hemoglobin 11.7 g/dL (13.5-17.5); Lymphocytes Absolute Auto 2900 /uL (1100-4500); Lymphocytes Percent Auto 27.6 % (25-40); Mean Corpuscular HGB Conc 35.5 % (30-36); Mean Corpuscular Hemoglobin 35.1 PG (26-34); Mean Corpuscular Volume 98.9 fL (80-100); Monocytes Absolute Auto 900 /uL (0-900); Monocytes Percent Auto 8.8 % (3-14); Neutrophils Absolute Auto 6200 /uL (1500-7000); Neutrophils Percent Auto 59.5 % (50-75); Platelet Count 354 X10^3/uL (150-400); Red Blood Cell Count 3.34 X10^6/uL (4.5-5.9); Red Cell Distribution Width 13.1 % (11.6-14.8); White Blood Cell Count 10.4 X10^3/uL (4.5-11.0)
[2019-12-16 05:37] LABS: Alanine Aminotransferase 50 IU/L (<50); Albumin 3.9 g/dL (3.5-5.0); Albumin Globulin Ratio 1.1 (1.0-2.8); Alkaline Phosphatase 102 U/L (38-126); Aspartate Aminotransferase 38 IU/L (17-59); BUN Creatinine Ratio 20.2 (6-22); Bilirubin Total 0.9 mg/dL (0.2-1.3); Bilirubin Unconjugated 0.9 mg/dL (0.0-1.1); Blood Urea Nitrogen 24 mg/dL (9-20); Calcium 9.9 mg/dL (8.4-10.2); Carbon Dioxide 25 mmol/L (22-32); Chloride 103 mmol/L (98-107); Estimated Glomerular Filt Rate 59.9 mL/min (>60); Globulin 3.4 g/dL (1.7-4.1); Glucose 111 mg/dL (80-110); HEMOLYSIS < 15 (0-50); Magnesium 2.2 mg/dL (1.6-2.3); Potassium 4.4 mmol/L (3.4-5.1); Sodium 135 mmol/L (137-145); Total Protein 7.3 g/dL (6.3-8.2)
[2019-12-16] MEDS: FLUTICASONE/SALMETEROL 100/50 60 PUFF DISKUS INH ×2 (08:03→19:41)
[2019-12-16 08:07] LABS: COVID19 Sendout Not Detected (Not Detect)
[2019-12-16] MEDS: ASPIRIN EC 81 MG TABLET PO (09:39)
[2019-12-16] MEDS: METOPROLOL IR 50 MG TABLET 100 MG PO ×2 (09:39→20:10)
[2019-12-16] MEDS: DOCUSATE 100 MG CAPSULE PO ×2 (09:39→20:10)
[2019-12-16] MEDS: HEPARIN 5,000 UNIT/ML VIAL 5000 UNIT SUBCUT ×2 (09:39→20:10)
[2019-12-16] MEDS: lisinopriL 20 MG TABLET PO (09:39)
[2019-12-16] MEDS: SODIUM CHLORIDE 0.9% FLUSH 10 ML IV ×2 (09:40→20:11)
--- NOTE | 2019-12-16 10:28 | PC.NURSE ---
Shift summary: Alert and oriented X3. NIH score 2 for slight numbness/tingling in L hand/fingers and slight visual deficit on the L side. Reports L cheek feeling a bit numb, speech sounded clear. No s/sx aspiration with PO intake. Lungs CTA, HRR. Tele monitoring ongoing. Has had 3 large soft BM's this morning (first since 12/10) and he has some abd cramping and discomfort r/t the same. After the last BM he reported his belly is starting to feel a bit better now that things are moving. Able to make needs known and calls appropriately. Resting back in bed now and hoping to nap. Call light and belongings within reach, bed alarm. COVID swab came back negative iso precautions dc'd.
--- NOTE | 2019-12-16 10:43 | P.PN_ITS ---
Subjective Subjective Date Patient Seen: 12/16/19 Interval history: Charbel Rodrigues is a 74-year-old male with a past medical history significant for hypertension, hyperlipidemia, and COPD who presented to the ED complaining of stroke-like symptoms including partial hemianopsia and facial numbness x1 day. The patient is resting in bedside chair comfortably. The patient continues to h ave persistent left-sided hemianopsia with hemineglect and left-sided weakness. His cognition is slow and he reports he has trouble processing information and concentrating. Continue working with physical and occupational therapy. Continue speech therapy for cognitive training.He continues to be an excellent candidate for inpatient stroke rehab per all therapies and awaiting approval. He reports his mild right-sided frontal headache is nearly resolved. He has no other complaints and denies sore throat, cough, shortness of breath, chest pain, abdominal pain, nausea, vomiting, fever, chills, dysuria, diarrhea or constipation. He is voiding and now eliminating without difficulty. He is up am bulating with assistance. Exam Vital Signs (past 8 hours): - 12/16/19 15:59 12/16/19 17:59 12/16/19 19:41 Temperature 97.9 F Pulse Rate 68 Respiratory Rate 18 Blood Pressure 149/69 H Pulse Oximetry 93 96 95 Oxygen Delivery Method Room Air Oxygen Flow Rate 0 Narrative Exam Narrative: General: Older male lying in bed and in no acute distress, well-developed, well-nourished, appropriately interactive. HEENT: Normocephalic, atraumatic. External ears without defect. Pupils equal, round, and reactive to light. Anicteric sclerae, moist conjunctivae, and no lid lag. Oropharynx free of erythema and cobble stoning with moist mucosa. No facial droop. Neck: Supple with full range of motion. No bruits. No lymphadenopathy or thyromegaly. Cardiovascular: Regular rate and rhythm without murmurs, rubs, or gallops appreciated. Pulmonary: Clear to auscultation bilaterally without crackles, wheezes, or rhonchi. Normal respiratory effort with no use of accessory muscles. Abdomen: Soft, bowel sounds present nontender, nondistended. No hepatosplenomegaly or masses appreciated. Extremities: No clubbing, cyanosis, or edema. Skin: Normal temperature, turgor, and texture; no rash, ulcers, or subcutaneous nodules appreciated. Neurological: Left-sided hemianopsia in left lower quadrant, left-sided salma- neglect, mild left-sided weakness in upper and lower extremities +4/5 otherwise normal muscle strength, tone, and bulk in right-sided extremities. Decreased sensation in left hand and face slightly improved. No facial droop or slurred speec h. Psychiatric: Normal mood and flat affect. Slow mentation and difficulty understanding and following simple conversation. Alert and oriented to person, place, and time. Objective Labs Result Diagrams: 12/16/19 05:00 12/16/19 05:00 Labs: Laboratory Results - last 24 hr 12/15/19 12/16/19 12/16/19 10:35 05:00 05:00 WBC 10.4 RBC 3.34 L Hgb 11.7 L Hct 33.0 L MCV 98.9 MCH 35.1 H MCHC 35.5 RDW 13.1 Plt Count 354 Neut % (Auto) 59.5 Lymph % (Auto) 27.6 [place] % (Auto) 8.8 Eos % (Auto) 3.2 Baso % (Auto) 0.9 Neut # (Auto) 6200 Lymph # (Auto) 2900 [place] # (Auto) 900 Eos # (Auto) 300 Baso # (Auto) 100 Sodium 135 L Potassium 4.4 Chloride 103 Carbon Dioxide 25 BUN 24 H Creatinine 1.19 Estimated GFR 59.9 L BUN/Creatinine Ratio 20.2 Glucose 111 H Calcium 9.9 Magnesium 2.2 Total Bilirubin 0.9 Conjugated Bilirubin 0.0 Unconjugated Bilirubin 0.9 AST 38 ALT 50 H Alkaline Phosphatase 102 Total Protein 7.3 Albumin 3.9 Globulin 3.4 Albumin/Globulin Ratio 1.1 COVID-19 PCR Not detected Assessment & Plan Assessment & Plan narrative: adan Rodrigues is a 74-year-old male with a past medical history significant for hypertension, hyperlipidemia, and COPD who presented to the ED complaining of stroke-like symptoms including partial hemianopsia and facial numbness x1 day. 1. Subacute right-sided CVA, present on admission. Active. -Patient presented after being discharged from [facility] with headache with slurred speech, left-sided facial numbness, left hand tingling and left-sided weakness. -Initial NIH score 4. Repeat NIH score 3 for left-sided salma-anopsia, left-sided salma-neglect and left-sided sensory decreased sensation of hand and face. -CT brain without contrast demonstrated subacute moderate right posterior temporal infarct and an old left cerebellar infarct. -MR stroke protocol demonstrated moderate sized subacute infarction involving the right frontoparietal region, and also involving a mild portion of the posterior right temporal lobe. 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 No significant carotid stenosis can be seen. -Received full-dose aspirin in ED. Patient not considered a tPA or interventional candidate outside the window. -EKG demonstrated sinus rhythm. Continue to monitor closely on telemetry. Patient continues to be in sinus rhythm without significant ectopy. Consider outpatient Holter monitor. -Due to recent left renal mass seen on ultrasound at [facility] ordered bilateral venous Doppler ultrasound to rule out DVT which was negative. -Risk stratified with hemoglobin A1c 6.2% indicative of prediabetes and fasting lipid panel which demonstrated fair lipid control with total cholesterol 133, triglycerides, LDL 79 (goal <70) and HDL 33. -Echocardiogram study quality technically difficult due to body habitus but did not demonstrate obvious embolic source or interatrial shunt. -Continue stroke prophylaxis with aspirin 81 mg daily and atorvastatin increased from 20 mg to 80 mg daily at bedtime. -Continue physical, occupational and speech therapy evaluation and treatment. 2. COPD with bronchiectasis and recent exacerbation, chronic, present on admission. Stable. -Does not represent COPD exacerbation. -Continue home equivalent of Symbicort and home albuterol inhaler 2 puffs every 4 hours. -Continue respiratory therapy evaluation treatment. May use supplemental oxygen to maintain oxygen saturations 88-92%. Patient has not required supplemental oxygen. 3. Hypertension, chronic, present on admission. Stable. -Continue home metoprolol tartrate 100 mg twice daily and lisinopril decreased from 40 mg to 20 daily due to mild hypotension on 12/13. -Held amlodipine and chlorthalidone for now and will monitor BP and restart when and if appropriate. 4. Hyperlipidemia, chronic, present on admission. Stable. -Fasting lipid panel demonstrated fair lipid control as above. -Continue atorvastatin 80 mg daily at bedtime as above. 5. Prediabetes, new diagnosis, present on admission. Stable. -Hemoglobin A1c 6.2% indicative of prediabetes. -Counseled patient extensively on lifestyle modification including: Diet and exercise. -Consulted dietitian and we appreciate her time and recommendations. 6. Left renal mass, recently discovered at outside facility, present on admission. Presumed stable. -Recommended outpatient follow up at [facility] where ultrasound was obtained. Records are available in patient's paper chart. Code status: Full code. Patient designates surrogate decision maker as his daughter or sister, he cannot decide between the 2 at this time. DVT prophylaxis: SQ heparin Disposition: Patient likely to discharge to acute inpatient rehabilitation pending approval versus shelter facility tomorrow.
--- NOTE | 2019-12-16 12:49 | PT.IPTN ---
Current Diagnoses Cerebral infarction, unspecified (12/13/19) Physical Therapy Treatment Note M2 PT-IP Current Condition Start: 12/14/19 15:47 Freq: NEEDED Status: Active Protocol: Document 12/14/19 14:10 AB (Rec: 12/14/19 16:09 AB [id number]) Physical Therapy Current Condition Current Condition Evaluation Date 12/14/19 Treatment Diagnosis R CVA; difficulty in walking Onset Date 12/13/19 Precautions Other Precautions BP M3 PT-IP Subjective Start: 12/14/19 15:47 Freq: NEEDED Status: Active Protocol: Document 12/16/19 12:27 AW (Rec: 12/16/19 12:48 AW [id number]) Subjective Physical Therapy Visit Type Type Treatment Note Visit Start Time 11:53 Visit Stop Time 12:22 Total Visit Minutes 29 Number of DIGITAL IMAGER Visits 0 Physical Therapy Visit Comments Patient Comments Pt willing to participate with PT Therapy Pain Assessment Pain When Pain Assessed At Rest Pain Present Pain Present Pain Reported Location Right Temporal Scale Used not quantified; background M4 PT-IP Mobility and Gait Start: 12/14/19 15:47 Freq: NEEDED Status: Active Protocol: Document 12/16/19 12:27 AW (Rec: 12/16/19 12:48 AW [id number]) PT-Bed Mobility Assessment Supine to Sit Supine to Sit Standby Assistance,Head of Bed Elevated Sit to Supine Sit to Supine Standby Assistance PT-Transfer Assessment Sit to and From Stand Sit to and from Stand Standby Assistance,1 Person Assistance,Use of Upper Extremities Equipment Transfer Assistive Device Gait Belt,Straight Cane Transfers Transfer Destination Bed,Chair,Toilet Transfer Technique ambulated with SPC Transfer Ability Level of Assist Standby Assistance Comments Mobility Comments Pt sitting up in bed upon PT arrival, talking with hospitalist. Pt stated he needed to use the toilet. He completed supine to sit with HOB elevated 35 degrees SBA, stood with initial and ongoing unsteadiness, and walked to the bathroom with SPC SBA. He transferred to and from the toilet SBA using SPC and then agreed to gait training in the hallway. Upon return to the room, pt transferred to the chair SBA where he was positioned with call light in reach, lunch tray in front of him. RN notified of pt's position and agreed to find a chair alarm for safety. Gait Assessment Gait Gait Assistance Required: Contact Guard Assist,1 Person Assist Distance (Feet) 100 Assistive Devices Assistive Device Gait Belt,Straight Cane Gait Deviations General Gait Pattern Antalgic,Ataxic,Decreased Stride Length,Decreased Feet Clearance,Flexed Trunk,Lateral Trunk Lean,Wide Based Gait Factors Limiting Gait Function Factors Limiting Gait Function Decreased Activity Tolerance, Decreased Sensation,Decreased Strength,Incoordination,Poor Balance,Poor Safety Awareness Comments Gait Comments Pt ambulated in the halls with SPC CGA. Gait was characterized by unsteadiness, left hip external rotation, and poor coordination. Therapist stood on pt's left side to increase awareness of environment on the left due to hemianopsia. Stair Climbing Assessment Comments Stair Climbing Comments Not assessed. PT-Balance Assessment Sitting Balance and Reactions Static Sitting Balance Ability Fair Dynamic Sitting Balance Ability Good Standing Balance and Reactions Static Standing Balance Ability Fair Dynamic Standing Balance Ability Fair Device Used SPC M5 PT-IP Objective Assessments Start: 12/14/19 15:47 Freq: NEEDED Status: Active Protocol: Document 12/14/19 14:10 AB (Rec: 12/14/19 16:09 AB [id number]) Orientation Orientation/Cognition Level of Alertness Alert Orientation Name,Place,Situation Safety Awareness Decreased Safety Awareness Gross Range of Motion Lower Extremity ROM Assessment Within Functional Limits Strength Lower Extremity Strength Assessment Within Functional Limits Sensation Assessment Sensation Gross Sensation Left UE Impaired Light Touch Impaired Proprioception (Position) Impaired Sensation Description Numbness Muscle Tone Muscle Tone WNL Yes M6 PT-IP Treatment Start: 12/14/19 15:47 Freq: NEEDED Status: Active Protocol: Document 12/16/19 12:27 AW (Rec: 12/16/19 12:48 AW [id number]) Physical Therapy Treatment Education Education Provided Safety Other Treatments Other Treatment Performed Consistently placed items on left side to increase left- sided awareness. Pt demonstrated poor control of his RUE/right hand especially for fine motor tasks including removal of paper band from eating utensils. Right-handed pt was observed to hold utensils in his right hand while attempting to manipulate the paper band with his left hand with poor control. When asked to change hands, pt had difficulty with left market research associate, dropping utensils and returning to market research associate with right hand. M7 PT-IP Assessment and Plan Start: 12/14/19 15:47 Freq: NEEDED Status: Active Protocol: Document 12/16/19 12:27 AW (Rec: 12/16/19 12:48 AW [id number]) PT Summary Assessment and Plan Potential Rehabilitation Potential Good Status of Condition at Evaluation Stable Summary Impairments Strength,Balance,Coordination, Sensation,Tone,Cognition,Bed Mobility,Transfers,Gait, Activity Tolerance Progress Towards Goals Progressing Toward Goals Assessment Summary Pt with COPD maintained SpO2 > 92% throughout treatment but did complain of shortness of breath and mild dizziness. BP was stable SBP 140's/DBP 70's. Pt has left sided visual field deficits and left neglect which are affecting the safety of his mobility. He is an independent ambulator at baseline but is now requiring CGA with SPC. LUE weakness is more significant than lower extremity, but LLE is ~1/2 grade weaker than RLE on exam. Pt would benefit from acute rehab to address strength, gait, balance, and attention deficits to increase his safety/decrease risk of falls in the home upon his eventual return. Goals Bed Mobility Goal Independent Transfer Goal Independent,Cane Gait Goal Independent,Crutches Gait Distance 150 Other Goals up/down 1 step using SPC SBA Days to Meet Goals 5 Frequency of Treatment Frequency Of Treatment Twice a Day Treatment Plan Physical Therapy Treatment Plan Bed Mobility Training,Transfer Training,Gait Training, Therapeutic Exercise,Balance Retraining,Discharge Planning, Neuromuscular Re-ed, Coordination Retraining Recommendations To Nursing Amount of Assist Needed Standby Assistance Discharge Recommendations PT Discharge Recommendations Home with Assistance,Home Health,SNF Rehab,Acute Rehab, Outpatient PT Other Discharge Recommendations acute rehab (preferred) vs home with assist and HH or OP PT Transportation Needs at Discharge Private Vehicle,Wheelchair/ Cabulance
--- NOTE | 2019-12-16 13:23 | CM.DPC ---
Addendum entered by LAURENCE Trent 12/16/19 13:56: ADD: Call back from Seble at [facility], they can accept pt tomorrow if still medically stable to discharge and confirmed that COVID was negative as of yesterday so would be in the 72 hour window still. YAQUELIN attempted to update MD but MD on the phone currently. BF Original Note: DCP Cont: Per MD, pt is stabilizing and likely will be medically stable to d/c to SNF vs Inpt Rehab tomorrow. YAQUELIN and spoke to PT (no OT today) and updated on need for PT note in order to fax [facility] today for ongoing review to determine if pt will meet criteria for their program. YAQUELIN faxed [facility] updated PT/OT/ST notes from yesterday and today and prog note from yesterday to review and called Gabbi in admissions ([phone]) to update on faxed clinicals. Gabbi reviewed and called back and per notes pt is only requiring SBA or CGA for ambulation and ADL's and would need to be at least min assist with OT on ADL's he refused yesterday in order to qualify. Pt currently doing too well to qualify for their program. Per PT, she spent a good amount of time explaining Inpt Rehab vs SNF vs HH with pt and pt is in agreement of Inpt rehab or SNF prior to safe return home with barbie Osorio. YAQUELIN called [facility] admissions Seble and she states she has not received referral and YAQUELIN updated on pt and status and faxed clinicals to [facility] to review. Seble states that they do have an open male bed for tomorrow and will review pt. YAQUELIN attempted to call pt's Dtr Iram and sister Caridad to update on above information and had to leave a general message for both with call back number. PASRR completed in case SNF needed at d/c. Plan: YAQUELIN to follow for likely pt d/c to rehab tomorrow pending OT note in the morning on pt's progress with ADL's and [facility] review for possible acceptance. LAURENCE Trent
[2019-12-16] MEDS: ACETAMINOPHEN 325 MG TABLET 650 MG PO (20:10)
[2019-12-16] MEDS: ATORVASTATIN 20 MG TABLET 80 MG PO (20:11)
[2019-12-17] VITALS (7 sets, daily range): BP systolic 120–141; BP diastolic 48–72; PULSE 63–71; RESP 14–18; TEMP 36.2–36.4; O2SAT 91–93
[2019-12-17] MEDS: ALBUTEROL HFA 60 PUFF/8 GM INH INH (08:49)
[2019-12-17] MEDS: FLUTICASONE/SALMETEROL 100/50 60 PUFF DISKUS INH (08:49)
[2019-12-17] MEDS: METOPROLOL IR 50 MG TABLET PO (09:03)
[2019-12-17] MEDS: ASPIRIN EC 81 MG TABLET PO (09:03)
[2019-12-17] MEDS: DOCUSATE 100 MG CAPSULE PO (09:03)
[2019-12-17] MEDS: polyethylene glycoL 3350 17 GM POWD.PACK PO (09:03)
[2019-12-17] MEDS: HEPARIN 5,000 UNIT/ML VIAL 5000 UNIT SUBCUT (09:03)
[2019-12-17] MEDS: AMLODIPINE 5 MG TABLET 10 MG PO (09:03)
[2019-12-17] MEDS: lisinopriL 20 MG TABLET PO (09:03)
[2019-12-17] MEDS: SODIUM CHLORIDE 0.9% FLUSH 10 ML IV (09:04)
--- NOTE | 2019-12-17 09:10 | OT.IP.TRT ---
Current Diagnoses Cerebral infarction, unspecified (12/13/19) Occupational Therapy Treatment Note M2 OT-IP Current Condition Start: 12/14/19 12:33 Freq: Status: Active Protocol: Document 12/14/19 12:33 CGR (Rec: 12/14/19 12:54 CGR [id number]) Occupational Therapy Current Condition Current Condition Evaluation Date 12/14/19 Treatment Diagnosis Sub acute R posterior temporal and L cerebellar infarcts Diagnosis Onset Date 12/13/19 M3 OT- IP Subjective and Pain Start: 12/14/19 12:33 Freq: Status: Active Protocol: Document 12/17/19 08:50 [facility] (Rec: 12/17/19 09:10 [facility] [id number]) OT- Subjective Occupational Therapy Visit Type Visit Start Time 08:25 Visit Stop Time 08:49 Total Visit Minutes 24 Occupational Therapy Visit Comments Patient Comments Pt willing to work with OT. Patient/Caregiver Goals Pt wanting to go to acute rehab to get better prior to going home. OT Pain Assessment Pain When Pain Assessed At Rest Pain Present Pain Present Denied Pain M4 OT- IP ADL's Start: 12/14/19 12:33 Freq: Status: Active Protocol: Document 12/17/19 08:50 [facility] (Rec: 12/17/19 09:10 [facility] [id number]) OT [id number] General Evaluation Self-Feeding Ability Standby Assistance,Moderate Assistance Areas Needing Assistance Cutting Food,Opening Containers Comments OT Self-Feeding Comments Pt not able to use left hand to open lids, open milk carton , and open packets and needing right hand to take over to assist. OT ADL-Grooming General Evaluation Grooming Ability Standby Assistance,Moderate Assistance Areas Needing Assistance Retrieving/Set-up of Grooming Items Comments OT Grooming Comments Pt having difficulty to hold the toothpaste in left hand and dropped from his hand while trying to squeeze the toothpaste and needing to take over with use of his right hand. OT ADL-Oral Care General Eval Oral Care Ability Independent OT ADL-Dressing General Eval Lower Body Dressing Ability Moderate Assistance Areas Needing Assistance Underpants/Brief,Socks Comments OT Dressing Comments Pt having difficulty to grasp the sock in left to hold onto the sock and able to get over his toes but needing to use the right hand to take over to do the rest. Pt not able rosina/doff brief over his feet with left hand as does not have enough strength or coordination to assist and needing therapist to help. OT ADL-Toileting Comments OT Toileting Comments Not performed. OT ADL-Bathing Comments OT Bathing Comments Pt declined, states he is just too tired. M5 OT- IP IADL's Start: 12/14/19 12:33 Freq: Status: Active Protocol: Document 12/14/19 12:33 CGR (Rec: 12/14/19 12:54 CGR [id number]) OT-Instrumental Activities of Daily Living Deficits IADL Deficits Identified Deficits Home Safety Awareness Awareness of Need for Assistance at Home Good Awareness Ability to Problem Solve Emergency Able to Problem Solve Situations Home Safety Comments Concerns for true understanding of visual deficit. 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 Discussed with pt that he would not be a safe ambulance driver paramedic at this time with the vision deficit that he is experiencing. M6 OT- IP Functional Cognition Start: 12/14/19 12:33 Freq: Status: Active Protocol: Document 12/17/19 08:50 [facility] (Rec: 12/17/19 09:10 [facility] [id number]) Cognitive Factors Limiting Selfcare Function Cognitive Ability Level of Alertness Alert Patient Orientation Name,Age,Year,Place,Situation Attention Span Ability Capable of Focused Attention Ability to Follow Commands Able to Follow One Step Commands with Increased Time, Able to Follow One Step Commands with Repetition Memory Description Short Term Impaired Safety Awareness Underestimates Need for Assistance Cognitive Comments Cognitive Assessment Comments Pt feels that his short term memory is worse now then before and needing more time to think things through. Also noted that pt is a bit impulsive and needing cues to wait before moving or to listen to all the directions before starting 9 hole peg test. OT- Vision and Hearing OT- Vision Assessment Vision Assessment Comments Increase time to find wash cloth on the left side of the counter. M7 OT- IP Mobility and Balance Start: 12/14/19 12:33 Freq: Status: Active Protocol: Document 12/17/19 08:50 [facility] (Rec: 12/17/19 09:10 [facility] [id number]) OT- Bed Mobility Assessment Supine to Sit Supine to Sit Assist Standby Assistance OT-Transfer Assessment Sit to and From Stand Sit to and from Stand Contact Guard Assistance Transfers Transfer Ability Contact Guard Assistance, Minimal Assistance Technique Transfer Destination Bed,Chair,Toilet Transfer Technique Stand Step Pivot Devices Transfer Assistive Devices Gait Belt Comments Mobility Comments Pt prior did not use a cane and therefore walked to the bathroom without the cane and needing from CGA to MAO as pt had loss of balance backwards and unsteady on his feet. Pt also feeling dizzy as well and BP 144/81. OT- Balance Assessment Sitting Balance and Reactions Static Sitting Balance Ability Good Dynamic Sitting Balance Ability Fair Standing Balance and Reactions Static Standing Balance Ability Poor Comments Other Balance Tests/Deviations/Treatment Pt standing via leaning : against the sink and asked to stand without support of the sink and last his balance backwards and needing MAO to maintain his balance. M8 OT- IP Objective Assessments Start: 12/14/19 12:33 Freq: Status: Active Protocol: Document 12/17/19 08:50 [facility] (Rec: 12/17/19 09:10 [facility] [id number]) OT- Coordination Assessment Comments Coordination Comments 9 hole peg test norm score for pt's age R hand 25.5 sec, pt' s score 39 second. Norm score L hand 27.5 sec, Pt 's score 153 seconds. Pt still having difficulty with left hand coordination, in hand manipulation, and depends on his right hand to assist for needs at this time. OT Sensation Assessment Comments Summary Comments Pt having difficulty with sensation with left hand and also due to decreased coordination and strength in addition to sensation dropping items when in left hand. M9 OT- IP Assessment and Plan Start: 12/14/19 12:33 Freq: Status: Active Protocol: Document 12/17/19 08:50 [facility] (Rec: 12/17/19 09:10 [facility] [id number]) OT Summary Assessment and Plan Potential Rehabilitation Potential Excellent Analytic Complexity at Evaluation Low Summary OT Impairments Coordination,Functional Cognition,Functional Mobility, Self-Feeding,Grooming,Dressing ,Toileting,Bathing,Shower Transfers,Activity Tolerance Progress Towards Goals Progressing Toward Goals Assessment Summary Pt is cooperative, highly motivated to be able to use his left hand is smooth, coordinated movements and in conjunction with RUE, and BLE in order to return to his baseline of being completely independent with no devices. Currently pt has decreased balance, decreased functional use of left hand, and needing at least MAO for needs at this time. Pt would be an excellent candidate for acute rehab. Goals Self-Feeding Goal Independent Grooming Goal Independent Dressing Goal Independent Toileting Goal Independent Bathing Goal Independent Toilet Transfer Goal Independent Shower Transfer Goal Independent OT-Other Goals Inicorporate use of left hand for all need 100% of the time. Days to Meet Goals 15 Frequency of Treatment Frequency Of Treatment Once a Day Treatment Plan OT Treatment Plan ADL Training,Functional Cognition Training,Functional Mobility,Therapeutic Exercises ,Patient/Family Education, Discharge Planning Discharge Recommendations OT Discharge Recommendations Acute Rehab Home Equipment Needs tub transfer bench. Transportation Needs at Discharge Private Vehicle
--- NOTE | 2019-12-17 09:19 | CM.DPC ---
Addendum entered by LAURENCE Trent 12/17/19 12:15: ADD: SW faxed signed med rec, no script needed, PASRR (left original in d/c folder for [facility]), orders, COVID neg test to [facility] to review for 1300 transport. RN aware and d/c folder complete. BF Addendum entered by LAURENCE Tretn 12/17/19 10:55: ADD: Return call from Gabbi at [facility] stating that unfortunately pt is doing too well to meet criteria for their program and they cannot accept. YAQUELIN called [facility] admissions and confirmed that they can still accept the pt today for SNF rehab. YAQUELIN received a call from pt's Dtr Iram ([phone]) to confirm pt's d/c plan as she states she was recently talking via phone with the pt and feels that directly home is not a safe option and Dtr and pt agreeable with SNF at [facility] at discharge. YAQUELIN updated Dtr that [facility] can accept today and she is very appreciative and agreeable and states she will call pt back in his room to update on [facility] today at around 1300. YAQUELIN updated STOCK PARTS INSPECTOR, NTL, RN, and MD and waiting for d/c packet to be completed to fax to [facility] for review. YAQUELIN provided the RN report number to call. Plan: SW to follow for faxing d/c packet to [facility] for transport via facility van at 1300 for rehab for CVA prior to safe return home with family assist. LAURENCE Trent Original Note: DCP PT Rehab planning: Per MD, pt medically stable to d/c today for ongoing therapy for CVA. YAQUELIN spoke to OT Marie regarding need for OT note this morning to fax to [facility] to make final determination if pt meets criteria for their program. OT kindly prioritized pt this morning and YAQUELIN faxed OT note to [facility] In Rehab at 0915 and called their admissions Gabbi and left msg requesting review this morning to determine if they can accept and that pt stable for discharge today. Plan: SW to follow closely to determine if Acute Inpt Rehab vs SNF needed for today. LAURENCE Trent
--- NOTE | 2019-12-17 10:28 | PT.IPTN ---
Current Diagnoses Cerebral infarction, unspecified (12/13/19) Physical Therapy Treatment Note M2 PT-IP Current Condition Start: 12/14/19 15:47 Freq: NEEDED Status: Active Protocol: Document 12/14/19 14:10 AB (Rec: 12/14/19 16:09 AB [id number]) Physical Therapy Current Condition Current Condition Evaluation Date 12/14/19 Treatment Diagnosis R CVA; difficulty in walking Onset Date 12/13/19 Precautions Other Precautions BP M3 PT-IP Subjective Start: 12/14/19 15:47 Freq: NEEDED Status: Active Protocol: Document 12/17/19 10:03 SP (Rec: 12/17/19 11:10 SP [id number]) Subjective Physical Therapy Visit Type Type Treatment Note Visit Start Time 10:03 Visit Stop Time 10:28 Total Visit Minutes 25 Number of SOLDER CREAM MAKER Visits 1 Physical Therapy Visit Comments Patient Comments Pt willing to participate with therapy. Patient Goals To go to a facility to continue to work with therapy before going home due to not having / family to help him . M4 PT-IP Mobility and Gait Start: 12/14/19 15:47 Freq: NEEDED Status: Active Protocol: Document 12/17/19 10:03 SP (Rec: 12/17/19 11:10 SP [id number]) PT-Transfer Assessment Sit to and From Stand Sit to and from Stand Contact Guard Assistance,Use of Upper Extremities Equipment Transfer Assistive Device Gait Belt,Straight Cane Orthotic/Prosthetic Devices or Brace: No Transfers Transfer Destination Chair Transfer Technique ambulated using SPC Transfer Ability Level of Assist Contact Guard Assistance,Use of Upper Extremities Comments Mobility Comments Pt seated in chair when arrived. Completed sit to stand with no AD CGA secondary to unsteady sway once in standing. Assessed standing balance with no AD (see comments) feet side by side and stagger stationary head turns/ vertical EO little unsteady sway but self recovery with hands out to side, EC LOB requiring Gunjan for recovery. Ambulated across room approx 15 ft with no AD, CGA with wide base of support with noticed wt shift sways reaching to out side for self recovery onto wall, returned to chair due to tiring quickly and increased breathing, CGa during pivot turn and good safety hand placement demonstrated to sit in chair. Pt recovered within 2 min seated rest while assessed vitals: 143/58, HR 77, SaO2 93 % on room air post activity. Pt agreeable to assess 1 step mgt to assimulate home enterance. Pt agreeable to donning mask to leave room but commented nervous about affecting his breathing, reviewed slow pacing, slow breathes for energy conservation during gait using SPC in RUE approx 40 ft total into hallway, ascend/descend 1- 6 step using SPC in RUE and and CONTRACT DESIGNER with LLUE requiring Min A and brief stopped rest at top step for recovery. Pt commented I need to go sit down, pt returned to chair requiring CGA demonstrated unsteady gait while using SPC. Pt demonstrated slow descend with BUE to sit safely in chair + SOB. SOLDER CREAM MAKER removed mask and patient demonstrated good slow breathes to recover approx 3 min. Pt has decreased strength and activity tolerance requires SPC for stability and CGA for safety today while mobilizing. Pt would benefit and recommending acute rehab/ SNF to improve strength and functional mobility before safe discharge home. Pt was seated in chair with chair alarm armed, call light and all needs in reach before left . Gait Assessment Gait Gait Assistance Required: Contact Guard Assist,1 Person Assist Distance (Feet) 40 Able to Maintain Weight Bearing Status Yes During Gait Assistive Devices Assistive Device None,Gait Belt,Straight Cane Orthotic/Prosthetic Devices or Brace: No Gait Deviations General Gait Pattern Antalgic,Ataxic,Decreased Stride Length,Decreased Feet Clearance,Flexed Trunk,Lateral Trunk Lean,Wide Based Gait Factors Limiting Gait Function Factors Limiting Gait Function Decreased Activity Tolerance, Decreased Sensation,Decreased Strength,Incoordination,Poor Balance,Poor Safety Awareness, Respiratory Distress Comments Gait Comments see mobility comments. Stair Climbing Assessment Evaluation Level of Assist On Stairs Minimal Assistance Devices Stair Climbing Assistive Devices Straight Cane Technique/Endurance Stair Climbing Direction Ascend and Descend Stair Climbing Technique Step to Step Number of Steps Climbed 1 Stair Climbing Set # Repetitions (reps) 1 Comments Stair Climbing Comments see mobility comments. PT-Balance Assessment Sitting Balance and Reactions Static Sitting Balance Ability Normal Dynamic Sitting Balance Ability Good Standing Balance and Reactions Static Standing Balance Ability Poor Dynamic Standing Balance Ability Fair Device Used SPC Comments Other Balance Tests/Deviations/Treatment Assessed Static standing : balance feet side by side and stagger stance 5 inches apart (unable to maintain balance without support flush together ) with head turns R/L/ vertical/ EO with slight sway self recovery but LOB with EC requiring Gunjan for recovery no AD . M5 PT-IP Objective Assessments Start: 12/14/19 15:47 Freq: NEEDED Status: Active Protocol: Document 12/14/19 14:10 AB (Rec: 12/14/19 16:09 AB [id number]) Orientation Orientation/Cognition Level of Alertness Alert Orientation Name,Place,Situation Safety Awareness Decreased Safety Awareness Gross Range of Motion Lower Extremity ROM Assessment Within Functional Limits Strength Lower Extremity Strength Assessment Within Functional Limits Sensation Assessment Sensation Gross Sensation Left UE Impaired Light Touch Impaired Proprioception (Position) Impaired Sensation Description Numbness Muscle Tone Muscle Tone WNL Yes M6 PT-IP Treatment Start: 12/14/19 15:47 Freq: NEEDED Status: Active Protocol: Document 12/17/19 10:03 SP (Rec: 12/17/19 11:10 SP [id number]) Physical Therapy Treatment Exercises Exercises Seated Knee Flexion/Extension Education Education Provided Safety Other Treatments Other Treatment Performed Instructed seated heel/toe raises, marching and LAQ 5 reps each, each LE pre sit to stand. M7 PT-IP Assessment and Plan Start: 12/14/19 15:47 Freq: NEEDED Status: Active Protocol: Document 12/17/19 10:03 SP (Rec: 12/17/19 11:10 SP [id number]) PT Summary Assessment and Plan Potential Rehabilitation Potential Good Status of Condition at Evaluation Stable Summary Impairments Strength,Balance,Coordination, Sensation,Tone,Cognition,Bed Mobility,Transfers,Gait, Activity Tolerance Progress Towards Goals Progressing Toward Goals Assessment Summary Pt with COPD maintained SpO2 > 90% throughout treatment, did demonstrated shortness of breath and mild dizziness during gait and worsed with use of a mask, required use of SPC for safety CGA, unsteady today, LOB noted with assessment with no AD so recommending continue use of SPC. BP was stable SBP 140's/ DBP 50's. He is an independent ambulator at baseline but is now requiring CGA with SPC. Pt was able to complete ascend / descend 1 step using SPC and CONTRACT DESIGNER Min A for balance and decreased strength. Pt would benefit from acute rehab to address strength, gait, balance, and attention deficits to increase his safety/decrease risk of falls in the home upon his eventual return. Goals Bed Mobility Goal Independent Transfer Goal Independent,Cane Gait Goal Independent,Crutches Gait Distance 150 Other Goals up/down 1 step using SPC SBA Days to Meet Goals 5 Frequency of Treatment Frequency Of Treatment Twice a Day Treatment Plan Physical Therapy Treatment Plan Bed Mobility Training,Transfer Training,Gait Training, Therapeutic Exercise,Balance Retraining,Discharge Planning, Neuromuscular Re-ed, Coordination Retraining Recommendations To Nursing Amount of Assist Needed 1 Person Assist Discharge Recommendations PT Discharge Recommendations Home with Assistance,Home Health,SNF Rehab,Acute Rehab, Outpatient PT Other Discharge Recommendations acute rehab (preferred) vs SNF Transportation Needs at Discharge Private Vehicle,Wheelchair/ Cabulance
--- NOTE | 2019-12-17 10:29 | ST.IPTN ---
Visit Care Team Role Provider Type Veda Costello MD Primary Care Provider Physician Address: [address] [place] [address], [address], [place], [address] Charbel Matt DO Emergency Provider Physician Referring Provider Address: [address] [place] [address], [address] Leonard Theodore DO Admit Provider Physician Attending Provider Address: [address] [place] [address], [id number] TERRY CLOTH CUTTER HAND Treatment Note TERRY CLOTH CUTTER HAND Treatment Note Start: 12/15/19 12:58 Freq: Status: Active Protocol: Document 12/17/19 09:51 LL (Rec: 12/17/19 10:14 LL [id number]) Speech Pathology Treatment Note Session Time Visit Start Time 09:20 Visit Stop Time 09:50 Total Visit Minutes 30 Visit Information Visit Number 3 Setting Treatment Setting Acute Care Visit Type Note Type Treatment Note General Information General Information Per H&P: Charbel Rodrigues is a 74-year-old male with past medical history of COPD, hypertension, hyperlipidemia who presented to the emergency room today complaining of stroke symptoms since yesterday evening, he continues to have a partial hemianopia and some facial numbness after arrival to the floor. His CT scan was positive for a subacute infarct and he is admitted to Medicine for further monitoring after an acute CVA. CT scan - head: Radiologist's impression: 1. Subacute moderate right posterior temporal infarct. 2. Old left cerebellar infarct. Subjective Identification Type Name,ID Wristband Observations/Patient Presentation Pt was sitting upright in chair eating breakfast upon TERRY CLOTH CUTTER HAND arrival. Pt alert and agreeable to TERRY CLOTH CUTTER HAND entering room and working with him. Pt reported that he has not been practicing his oral motor exercises / speech intelligibility drills, but feels his speech is improving. Chief Complaint(s) Speech Patient Knowledge/Awareness of TERRY CLOTH CUTTER HAND Role Good in Treatment Patient/Caregiver Compliance with Home Good Exercise Program Objective Short Term Goals Pt will participate in home exercise program to strengthen his articulators (e.g., tongue, lips). [employer] Retailer Goals Pt will follow home exercise program and report improved speech. Treatment Activities TERRY CLOTH CUTTER HAND reviewed recommended oral motor exercises and speech intelligibility drills listed on handouts provided by previous TERRY CLOTH CUTTER HAND over the weekend. As stated above, patient reported not practicing recommended oral motor exercises / speech intelligibility drills because he is primarily focused on resting and conserving energy. TERRY CLOTH CUTTER HAND explained the importance of practicing recommended exercises to improve oral strength/ROM/tone and increase speech intelligibility. Patient completed 6 oral motor exercises x 5 each and 5 structured speech tasks given min cues for correct technique and effort. TERRY CLOTH CUTTER HAND instructed patient to begin practicing recommended exercises x 1-3 times per day to improve CLOF. Patient verbalized understanding and agreement. Assessment Patient Response to Treatment Good Rehab Potential Good Impairments Identified Articulation,Oral Motor Assessment of Improvement Patient's speech was 90% intelligible during unstructured conversation and structured speech tasks. Patient is currently on regular diet and thin liquids, however, had a mechanical soft breakfast tray in room. Patient reported regular texture foods hurt his stomach and prefers mechanical soft textures to reduce nausea and discomfort while eating. Patient reported weak breath support / respiratory function likely due to COPD. TERRY CLOTH CUTTER HAND observed no difficulty with patient's breath support or vocal intensity during today's session. OT reported that patient scored a 22/30 on the SLUMS indicating a mild cognitive impairment. Patient presented with moderate confusion on discharge plans. Patient initially stated that he wanted to return home, then later stated that he was not strong enough to return home. Per patient report, staff report, and TERRY CLOTH CUTTER HAND observation, patient presents with mild- moderate memory deficits that are impacting his ability to fully participate in making appropriate medical decisions. Patient stated that the memory problems were due to CVA and not age-related. Patient would benefit from additional cognitive linguistic assessment(s), cognitive treatment, and continuation of dysarthria treatment. Reviewed with Patient Goals,Progress Being Made,Home Exercise Program Patient/Caregiver Understanding Good Plan Therapeutic Contents Articulation Training,Home Exercise Program, Intelligibility,Oral Motor Training Provided Patient/Caregiver Instruction Home Exercise Program, Questions/Concerns
--- NOTE | 2019-12-17 11:53 | P.DS_ITS ---
History of Present Illness History of Present Illness Date Patient Seen: 12/13/19 Chief complaint: Had a stroke yesterday Narrative: Written by Dr. Theodore: Meet Rodrigues is a 74-year-old male with past medical history of COPD, hypertension, hyperlipidemia who presented to the emergency room today complaining of stroke symptoms since yesterday evening. Patient states that yesterday he was discharged from [facility] for treatment of a COPD exacerbation, when leaving he complained of a headache on the right side. He was discharge from the hospital and later that evening according to his daughter he was having some difficulty with speech yesterday evening. This continued in this morning his left hand was numb and he did not feel well. He noticed noticed some left-sided numbness in his face and tongue. He denies any lower extremity symptoms. She did not notice any weakness and did not notice any facial droop. He did not have any dizziness, palpitations, chest pain, worsening shortness of breath, lower extremity edema, orthopnea. He did have an IV placed in his left hand and there is some resulting bruising, but it was not numb when he left the hospital. In the emergency room, patient's vital signs are unremarkable. Laboratory evaluation showed a mild leukocytosis at 11.2, hemoglobin of 12.4, platelet of 330. Coags were unremarkable. Chemistries revealed a sodium of 133, creatinine of 1.22, ALT of 71, but no other abnormal findings. In the ED his stroke scale was 4, upon arrival to the floor it was too with differences being in the emergency room he had a left-sided ataxia that was not evident on my exam, and left leg weakness that was not present on my exam, he continues to have sensory deficits on the left as well as partial hemianopia. CT noncontrast showed a subacute moderate right posterior temporal infarct, as well as a left cerebellar infarct. He was admitted to Medicine for further evaluation and monitoring after an acute CVA. Discharge Providers Provider Date of admission: 12/13/19 11:17 Discharge Date: 12/17/19 Primary care physician: Veda Costello MD Consults: 12/13/19 13:59 Consult to Dietitian, Adult Routine Comment: Reason For Exam: decreased appetite 12/13/19 15:29 Consult to Discharge Planning Routine Comment: Consult to Occupational Therapy Evaluate & Treat Comment: Physician Instructions: Evaluate and treat Consult to Physical Therapy Evaluate & Treat Comment: Physician Instructions: Evaluate and Treat 12/13/19 15:46 Consult to Speech Therapy Evaluate & Treat Comment: Physician Instructions: Evaluate and treat 12/13/19 15:49 Consult to Respiratory Therapy Evaluate & Treat Comment: Physician Instructions: Evaluate and treat Discharge provider: Ledy Londono DO Summary Hospital Course Discharge Diagnosis: 1. Subacute right-sided CVA, present on admission. Active. 2. COPD with bronchiectasis and recent exacerbation, chronic, present on admission. Stable. 3. Hypertension, chronic, present on admission. Stable. 4. Hyperlipidemia, chronic, present on admission. Stable. 5. Prediabetes, new diagnosis, present on admission. Stable. 6. Left renal mass, recently discovered at outside facility, present on admission. Presumed stable. Hospital Course: Charbel Rodrigues is a 74-year-old male with a past medical history significant for hypertension, hyperlipidemia, and COPD who presented to the ED complaining of stroke-like symptoms including partial hemianopsia and facial numbness x1 day. 1. Subacute right-sided CVA, present on admission. Active. -Patient presented after being discharged from [facility] with headache with slurred speech, left-sided facial numbness, left hand tingling and left-sided weakness. -Initial NIH score 4. Repeat NIH score 3 for left-sided salma-anopsia, left-sided salma-neglect and left-sided sensory decreased sensation of hand and face. Patient also has cognitive issues with information processing, concentration and memory. -CT brain without contrast demonstrated subacute moderate right posterior temporal infarct and an old left cerebellar infarct. -MR stroke protocol demonstrated moderate sized subacute infarction involving the right frontoparietal region, and also involving a mild portion of the posterior right temporal lobe. 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 No significant carotid stenosis can be seen. -Received full-dose aspirin in ED. Patient not considered a tPA or interventional candidate outside the window. -EKG demonstrated sinus rhythm. Continue to monitor closely on telemetry. Patient continues to be in sinus rhythm and sinus bradycardia (HR 40s likely due to high dose of metoprolol tartrate) without significant ectopy. Consider outpatient Holter monitor and will defer to PCP. -Due to recent left renal mass seen on ultrasound at [facility] ordered bilateral venous Doppler ultrasound to rule out DVT which was negative. -Risk stratified with hemoglobin A1c 6.2% indicative of prediabetes and fasting lipid panel which demonstrated fair lipid control with total cholesterol 133, triglycerides, LDL 79 (goal <70) and HDL 33. -Echocardiogram study quality technically difficult due to body habitus but did not demonstrate obvious embolic source or interatrial shunt. -Screened for COVID-19 for placement purposes which was negative. -Continued stroke prophylaxis with aspirin 81 mg daily and atorvastatin increased from 20 mg to 80 mg daily at bedtime. -Continued physical, occupational and speech therapy evaluation and treatment. 2. COPD with bronchiectasis and recent exacerbation, chronic, present on admission. Stable. -Does not represent COPD exacerbation. -Continued home equivalent of Symbicort and home albuterol inhaler 2 puffs every 4 hours. -Continued respiratory therapy evaluation treatment. Ordered supplemental oxygen to maintain oxygen saturations 88-92% for which the patient did not require supplemental oxygen throughout entire hospitalization. 3. Hypertension, chronic, present on admission. Stable. -Continued home metoprolol tartrate decreased to 50 mg twice daily as patient had episode of severe bradycardia with heart rate in the 40s, lisinopril decreased from 40 mg to 20 daily due to mild hypotension on 12/13, and am lodipine 10 mg daily. Discontinued chlorthalidone due to lightheadedness, hypotension and concern for dehydration. 4. Hyperlipidemia, chronic, present on admission. Stable. -Fasting lipid panel demonstrated fair lipid control as above. -Continued atorvastatin 80 mg daily at bedtime as above. 5. Prediabetes, new diagnosis, present on admission. Stable. -Hemoglobin A1c 6.2% indicative of prediabetes. -Counseled patient extensively on lifestyle modification including: Diet and exercise. -Consulted dietitian and we appreciate her time and recommendations. 6. Left renal mass, recently discovered at outside facility, present on admission. Presumed stable. -Recommended outpatient nephrology or urology evaluation for left renal mass found on ultrasound during hospitalization at [facility] and will defer to PCP. Records are available in patient's paper chart. Exam Vital Signs (past 8 hours): - 12/17/19 05:00 12/17/19 07:36 12/17/19 08:49 Temperature 97.3 F L Pulse Rate 66 71 Respiratory Rate 18 14 Blood Pressure 141/68 H Pulse Oximetry 93 93 92 12/17/19 11:06 Temperature 97.6 F Pulse Rate 63 Respiratory Rate 16 Blood Pressure 120/48 L Pulse Oximetry 91 Oxygen Delivery Method Room Air Oxygen Flow Rate 0 Narrative Exam Narrative: General: Older male lying in bed and in no acute distress, well-developed, well-nourished, appropriately interactive. HEENT: Normocephalic, atraumatic. External ears without defect. Pupils equal, round, and reactive to light. Anicteric sclerae, moist conjunctivae, and no lid lag. Oropharynx free of erythema and cobble stoning with moist mucosa. No facial droop. Neck: Supple with full range of motion. No bruits. No lymphadenopathy or thyromegaly. Cardiovascular: Regular rate and rhythm without murmurs, rubs, or gallops appreciated. Pulmonary: Clear to auscultation bilaterally without crackles, wheezes, or rhonchi. Normal respiratory effort with no use of accessory muscles. Abdomen: Soft, bowel sounds present nontender, nondistended. No hepatosplenomegaly or masses appreciated. Extremities: No clubbing, cyanosis, or edema. Skin: Normal temperature, turgor, and texture; no rash, ulcers, or subcutaneous nodules appreciated. Neurological: Left-sided hemianopsia in left lower quadrant, left-sided salma- neglect, mild left-sided weakness in upper and lower extremities +4/5 otherwise normal muscle strength, tone, and bulk in right-sided extremities. Decreased sensation in left hand and face slightly improved. No facial droop or slurred speec h. Psychiatric: Normal mood and flat affect. Slow mentation, difficulty understanding and following simple conversation, and decreased concentration. Alert and oriented to person, place, and time. Probable mild cognitive impairme nt with short-term memory recall deficit. Objective Labs Result Diagrams: 12/16/19 05:00 12/16/19 05:00 Discharge Plan Discharge Plan Patient Disposition: SNF Discharge comment: Patient needs outpatient evaluation of renal mass found during hospitalization at [facility]. Recommend Holter monitor. Discharge orders & Medications Prescriptions: New acetaminophen 325 mg Tablet 650 mg PO Q6HR PRN (Reason: Fever/Mild Pain (1-3)) Qty: 30 RF: 0 atorvastatin [Lipitor] 20 mg Tablet 80 mg PO BEDTIME Qty: 30 RF: 0 aspirin 81 mg Tablet,Delayed Release (Dr/Ec) 81 mg PO DAILY Qty: 30 RF: 0 polyethylene glycol 3350 17 gram Powder In Packet 17 gm PO DAILY Qty: 30 RF: 0 docusate sodium [DOK] 100 mg Capsule 100 mg PO BID Qty: 60 RF: 0 metoprolol tartrate 50 mg Tablet 50 mg PO BID Qty: 30 RF: 0 Continued amlodipine 10 mg tablet 10 mg PO QDAY Qty: 90 RF: 3 albuterol sulfate 90 mcg/actuation aerosol powdr breath activated 2 inhalation INHALATION Q4H PRN (Reason: shortness of breath or wheezing) Qty: 1 RF: 3 budesonide-formoterol [Symbicort] 80-4.5 mcg/actuation HFA aerosol inhaler See Rx Instructions .ROUTE .COMPLEX Qty: 10.2 RF: 3 tamsulosin 0.4 mg capsule 0.4 mg PO DAILY RF: 0 Changed lisinopril 40 mg tablet 20 mg PO DAILY Qty: 180 RF: 3 guaifenesin [Mucinex] 600 mg tablet extended release 12hr 600 mg PO BID PRN (Reason: Cough) Qty: 0 RF: 0 Discontinued chlorthalidone 25 mg tablet 25 mg PO DAILY Qty: 90 RF: 2 atorvastatin 20 mg tablet 20 mg PO DAILY Qty: 90 RF: 3 metoprolol tartrate 100 mg tablet See Rx Instructions .ROUTE .COMPLEX Qty: 180 RF: 2 cefdinir 300 mg capsule 300 mg PO BID RF: 0 Saccharomyces boulardii [Florastor] 250 mg capsule 250 mg PO DAILY RF: 0 hydralazine 25 mg tablet 25 mg PO TID RF: 0 Follow up/Referrals: Veda Costello MD [Primary Care Provider] - Diet/Activity/Treatments Diet: Low-fat, Low-sodium and Low-cholesterol Activity: Activity as tolerated with forward wheeled walker and physical and occupational therapy [facility] Rehab type: Physical therapy, Occupational therapy and Speech therapy Visit Report/Discharge Packet Instructions: DI for Stroke-Ischemic Discharge Data Primary Care Provider: Veda Costello
--- NOTE | 2019-12-17 13:18 | PC.NURSE ---
Report called to Phi at [facility]. IV dc'd intact. Paperwork packet sent with facility designee, and patient with all his belongings. Patient to have outpatient follow up with his PCP (facility to assist to schedule) to follow up on renal mass and holter monitor recommendations.
== END 2019-12-17 13:19 | DRG 65 ==
LOC: ED 11:17 → AC 11:19
PROVIDERS: Internal Medicine; Admitting Provider Internal Medicine; Emergency Provider Emergency Medicine; PCP Family Medicine; Referring Provider Emergency Medicine; Visit Provider Internal Medicine
DX: I63.9 Cerebral infarction, unspecified (principal); R41.4 Neurologic neglect syndrome; G81.94 Hemiplegia, unspecified affecting left nondominant side; R27.8 Other lack of coordination; R20.0 Anesthesia of skin; H53.47 Heteronymous bilateral field defects; J44.9 Chronic obstructive pulmonary disease, unspecified; I10 Essential (primary) hypertension; E78.5 Hyperlipidemia, unspecified; R73.03 Prediabetes; R29.702 NIHSS score 2; Z87.891 Personal history of nicotine dependence; Z11.59 Encounter for screening for other viral diseases
CPT/HCPCS: 36415; 70450; 70548; 70553; 80048; 80053; 80061; 80076; 82962; 83036; 83690; 83735; 84443; 85025; 85610; 85730; 87635; 92507; 92523; 92610; 93005; 93306; 93970; 94640; 94760; 94762; 97112; 97116; 97129; 97130; 97162; 97165; 97530; 97535; 99285; A9579; J1644; Q9957

== ENCOUNTER → 2019-12-27 11:00 | Outpatient (ROUT) | payer SELFPAY ==
[2019-12-13 13:14] VITALS: BMI 24.6
[2019-12-28 20:23] LABS: COVID19 Sendout Not Detected (Not Detect)
== END ==
PROVIDERS: PCP Family Medicine; Visit Provider Internal Medicine
DX: Z11.59 Encounter for screening for other viral diseases (principal)
CPT/HCPCS: 87635

== ENCOUNTER → 2020-01-30 13:02 | Outpatient (CLI) | payer MEDICARE, OTHER, SELFPAY ==
[2019-12-13 13:14] VITALS: BMI 24.6
--- NOTE | 2020-01-30 13:07 | DI.CT.S_ITS ---
PROCEDURE: CT ABDOMEN WO/W CON INDICATIONS: renal mass on chest xray TECHNIQUE: Optional 5 mm thick noncontrast images acquired from the diaphragm to the iliac crests. After the administration of intravenous contrast, 5 mm thick images again acquired from the diaphragm to the iliac crests in the arterial and urographic phases. 5 mm thick coronal and sagittal reformats were then acquired. For radiation dose reduction, the following was used: automated exposure control, adjustment of mA and/or kV according to patient size. COMPARISON: [facility], , RENAL COMPLETE, 07/13/2017, 14:13. FINDINGS: Image quality: Excellent. Lung bases: Mild nodular opacity at the right lung base, (611). Bibasilar atelectasis. No pleural effusion. Heart size is within normal limits. There is reflux of contrast into the hepatic veins. Genitourinary: No solid renal mass or suspicious enhancement demonstrated. Kidneys are normal in size and enhancement. No kidney stones. No hydronephrosis. No filling defect within the opacified portions of the proximal ureters on the delayed sequence. Other solid organs: Liver is normal in size and enhancement. Gallbladder is nondistended. Punctate calcified gallstone. Biliary system is non dilated. Pancreas enhances normally. Spleen is normal in size and enhancement. No adrenal nodules. Peritoneum and bowel: Unenhanced bowel loops are normal in wall thickness and caliber. A somewhat prominent stool in the colon No free fluid or air. Nodes and vessels: No retroperitoneal or mesenteric adenopathy by size criteria. Aorta and inferior vena cava are normal in caliber. Extensive atherosclerotic plaque. Bones: No suspicious bony lesions. No vertebral body compression fractures. Moderate degenerative change. Miscellaneous: No ventral hernias. IMPRESSION: 1. No solid renal mass or suspicious enhancement. 2. No hydronephrosis. 3. Mild nodular opacity at the right lung base. This most likely represents atelectasis. However, a pulmonary nodule or pneumonia could have a similar appearance. -Recommend followup CT of the chest in 6-12 months. 4. Cholelithiasis. Dictated by: Maximo Castro M.D. on 01/30/2020 at 14:39 Approved by: Maximo Castro M.D. on 01/30/2020 at 14:50
[2020-01-30 13:39] LABS: BUN Creatinine Ratio 15.7 (6-22); Blood Urea Nitrogen 17 mg/dL (9-20); Estimated Glomerular Filt Rate > 60.0 mL/min (>60)
== END ==
PROVIDERS: Family Provider Family Medicine; PCP Family Medicine; Referring Provider Family Medicine; Visit Provider Family Medicine
DX: Z01.812 Encounter for preprocedural laboratory examination (principal); N28.89 Other specified disorders of kidney and ureter; K80.20 Calculus of gallbladder without cholecystitis without obstruction
CPT/HCPCS: 36415; 74170; 82565; 84520; Q9967

== ENCOUNTER → 2020-02-04 10:37 | Outpatient (CLI) | payer MEDICARE, OTHER, SELFPAY ==
[2019-12-13 13:14] VITALS: BMI 24.6
--- NOTE | 2020-03-04 14:52 | P.HOLT.S_ITS ---
[facility] Report Referral & Results Date Patient Seen: 02/04/20 Requesting provider: Veda Costello Indication: CVA Duration of monitoring (days): 14 Diary information: There were no patient diary entries or patient triggered events to review Data: Minimum heart rate identified was 24 beats per minute at 13:01 on 02/16/2020 Maximum heart rate was 95 beats per minute at 21:42 on 02/17/2020 Less than 1% of identified beats rather ventricular supraventricular ectopic in origin Patient had 9 pauses the longest of which was 3.8 seconds as well as several other pauses greater than 3 seconds Overall patient was bradycardic as above, in part due to the pauses but not entirely due to that Impression: Patient with bradycardia and significant pauses in excess of 3.8 seconds as above. Clinical correlation or probably cardiology consultation recommended.
== END ==
PROVIDERS: Family Provider Family Medicine; PCP Family Medicine; Referring Provider Family Medicine; Visit Provider Family Medicine
DX: R00.1 Bradycardia, unspecified (principal)
CPT/HCPCS: 0296T; 0298T

== ENCOUNTER → 2020-04-01 14:08 | Outpatient (CLI) | payer MEDICARE, OTHER, SELFPAY ==
[2019-12-13 13:14] VITALS: BMI 24.6
[2020-04-01 15:39] LABS: Add Manual Diff / Slide Review NO; Basophils Absolute Auto 100 /uL (0-100); Basophils Percent Auto 1.1 % (0-2); Eosinophils Absolute Auto 600 /uL (0-450); Eosinophils Percent Auto 7.8 % (2-4); Hematocrit 39.2 % (41-53); Hemoglobin 13.4 g/dL (13.5-17.5); Lymphocytes Absolute Auto 1800 /uL (1100-4500); Lymphocytes Percent Auto 23.1 % (25-40); Mean Corpuscular HGB Conc 34.1 % (30-36); Mean Corpuscular Hemoglobin 31.2 PG (26-34); Mean Corpuscular Volume 91.5 fL (80-100); Monocytes Absolute Auto 700 /uL (0-900); Monocytes Percent Auto 9.4 % (3-14); Neutrophils Absolute Auto 4500 /uL (1500-7000); Neutrophils Percent Auto 58.6 % (50-75); Platelet Count 314 X10^3/uL (150-400); Red Blood Cell Count 4.28 X10^6/uL (4.5-5.9); Red Cell Distribution Width 13.9 % (11.6-14.8); White Blood Cell Count 7.6 X10^3/uL (4.5-11.0)
[2020-04-01 16:13] LABS: Alanine Aminotransferase 30 IU/L (<50); Albumin 4.5 g/dL (3.5-5.0); Albumin Globulin Ratio 1.4 (1.0-2.8); Alkaline Phosphatase 216 U/L (38-126); Aspartate Aminotransferase 35 IU/L (17-59); Bilirubin Total 1.1 mg/dL (0.2-1.3); Bilirubin Unconjugated 0.9 mg/dL (0.0-1.1); Globulin 3.3 g/dL (1.7-4.1); HEMOLYSIS < 15 (0-50); Total Protein 7.8 g/dL (6.3-8.2)
== END ==
PROVIDERS: Family Provider Family Medicine; PCP Family Medicine; Referring Provider Podiatrist; Visit Provider Podiatrist
DX: B35.1 Tinea unguium (principal)
CPT/HCPCS: 36415; 80076; 85025

== ENCOUNTER → 2020-05-22 15:05 | Outpatient (CLI) | payer MEDICARE, OTHER, SELFPAY ==
[2020-05-22 14:22] VITALS: BMI 24.6
[2020-05-22 18:23] LABS: COVID19 -Nasal RAPID Negative (Negative)
== END ==
PROVIDERS: Family Provider Family Medicine; PCP Family Medicine; Visit Provider Nurse Practitioner Family
DX: G47.33 Obstructive sleep apnea (adult) (pediatric) (principal)
CPT/HCPCS: 87635

== ENCOUNTER → 2020-08-20 10:38 | Outpatient (CLI) | payer MEDICARE, OTHER, SELFPAY ==
[2020-08-19 15:04] VITALS: BMI 24.6
--- NOTE | 2020-08-20 10:39 | DI.CT.S_ITS ---
PROCEDURE: CT CHEST WO CON INDICATIONS: COPD TECHNIQUE: Noncontrast 5 mm thick sections acquired from the pulmonary apices to the posterior costophrenic angles. 1 mm lung window, 5 mm thick coronal and sagittal and 7 mm axial MIP reformats were then acquired. For radiation dose reduction, the following was used: automated exposure control, adjustment of mA and/or kV according to patient size. COMPARISON: None. FINDINGS: Image quality: Excellent. Lungs and pleura: Mild centrilobular emphysema. Mild bibasilar dependent change. Tiny calcified granuloma, right upper lobe. No acute air space opacities. No pleural effusions or pneumothorax. Central and peripheral airways are patent and normal in caliber. Mediastinum: Heart size is normal. No pericardial effusion. Moderately advanced coronary artery calcifications. No mediastinal adenopathy by size criteria. Thoracic aorta and central pulmonary arteries are normal in size. Esophagus is normal in caliber. No hiatal hernia. Bones and chest wall: No suspicious bony lesions. No vertebral body compression fractures. No axillary or supraclavicular adenopathy by size criteria. Thyroid gland is unremarkable as visualized . Abdomen: Visualized upper abdominal solid organs and bowel loops appear normal in the absence of contrast. IMPRESSION: 1. Mild centrilobular emphysema. 2. No suspicious pulmonary nodules. 3. Moderately advanced coronary artery calcifications. Dictated by: Moi Martinez M.D. on 08/20/2020 at 11:14 Approved by: Moi Martinez M.D. on 08/20/2020 at 11:15
== END ==
PROVIDERS: Family Provider Family Medicine; PCP Family Medicine; Referring Provider Family Medicine; Visit Provider Family Medicine
DX: J43.2 Centrilobular emphysema (principal); I25.10 Atherosclerotic heart disease of native coronary artery without angina pectoris
CPT/HCPCS: 71250; Q9967

== ENCOUNTER 2021-07-04 06:32 | Inpatient (IN) | payer MEDICARE, OTHER, SELFPAY ==
[2020-08-19 15:04] VITALS: BMI 24.6
[2021-07-04] VITALS (15 sets, daily range): BP systolic 144–168; BP diastolic 65–74; PULSE 68–95; RESP 13–24; TEMP 36.2–37.1; O2SAT 86–97; BMI 27.1; BMI 25.1
--- NOTE | 2021-07-04 06:38 | DI.RAD.S_ITS ---
PROCEDURE: XR CHEST 1V INDICATIONS: SOB with hypoxia TECHNIQUE: One view of the chest was acquired. COMPARISON: [facility], CT, CT CHEST WO CON, 08/20/2020, 10:46. [facility], CR, CHEST 2 VIEW, 11/16/2017, 15:05. FINDINGS: Surgical changes and devices: None. Lungs and pleura: Patchy airspace opacities in the medial aspect of the bilateral lung bases. Findings are more pronounced on the left. Mild diffuse interstitial prominence, compatible with chronic interstitial disease. No pneumothorax or pleural effusion. Mediastinum: Mediastinal contours appear normal. Heart size is normal. Bones and chest wall: No suspicious bony lesions. Overlying soft tissues appear unremarkable. IMPRESSION: Patchy medial bibasilar airspace opacities which may represent atelectasis and/or developing airspace disease/pneumonia. Recommend follow up chest radiograph 4-6 weeks after treatment to document resolution of findings and/or return to baseline examination. Dictated by: Reginaldo Greene M.D. on 07/04/2021 at 7:19 Approved by: Reginaldo Greene M.D. on 07/04/2021 at 7:21
[2021-07-04] MEDS: methylPREDNISolone 125 MG/2 ML VIAL IV (06:43)
--- NOTE | 2021-07-04 06:43 | ED_ITS ---
HPI - General Adult <Charbel Matt, - Last Filed: 07/06/21 07:06> General Chief complaint: Shortness of Breath/Dyspnea Stated complaint: COPD Exacerbation Time Seen by Provider: 07/04/21 06:32 Source: patient and EMS Mode of arrival: EMS History of Present Illness HPI narrative: Patient is a 76-year-old male. History of COPD. Not on home oxygen. Is unvaccinated against COVID-19. Has had a CVA in the past. 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 Has a history of hi gh blood pressure. Is not on anticoagulation. Never had a heart attack in the past. Is here for evaluation of 3-4 days of cough and shortness of breath. No fevers. No lower extremity swelling. No chest pain. He arrived by EMS. Was hypoxic to the mid upper 80s on room air. Was placed on oxygen by EMS prior to arrival. No other interventions by EMS prior to arrival. Related Data Home Medications Medication Instructions Recorded Confirmed Saccharomyces boulardii 250 mg 250 mg PO DAILY 07/04/21 07/04/21 capsule (Florastor) lisinopril 20 mg tablet 40 mg PO DAILY 07/04/21 07/04/21 Previous Rx's Medication Instructions Recorded acetaminophen 325 mg tablet 650 mg PO Q6HR PRN #30 tab 12/17/19 aspirin 81 mg tablet,delayed 81 mg PO DAILY #30 tab 12/17/19 release guaifenesin 600 mg tablet, 600 mg PO BID PRN #0 tab 12/17/19 extended release 12 hr (Mucinex) polyethylene glycol 3350 17 gram 17 gm PO DAILY #30 ea 12/17/19 oral powder packet albuterol sulfate 90 mcg/actuation 2 puff INHALATION Q4-6H PRN #54 05/16/20 aerosol inhaler gram budesonide-formoterol HFA 80 See Rx Instructions .ROUTE 05/16/20 mcg-4.5 mcg/actuation aerosol .COMPLEX #30.6 gram inhaler (Symbicort) amlodipine 10 mg tablet 10 mg PO DAILY #90 tab 01/09/21 tamsulosin 0.4 mg capsule 0.4 mg PO DAILY #90 cap 02/26/21 atorvastatin 80 mg tablet 80 mg PO BEDTIME #90 tab 06/10/21 Allergies Allergy/AdvReac Type Severity Reaction Status Date / Time Sulfa (Sulfonamide Allergy Unknown Verified 07/04/21 06:48 Antibiotics) [SULFA (SULFONAMIDE ANTIBIOTICS)] Review of Systems <Charbel Matt DO - Last Filed: 07/06/21 07:06> Constitutional Constitutional: Denies fever(s) Cardiovascular Cardiovascular: Denies chest pain, Denies leg edema and Reports dyspnea Respiratory Respiratory: Denies change in phlegm color, Reports cough, Denies excessive phlegm production and Reports dyspnea Gastrointestinal Gastrointestinal: Reports system reviewed and no additional complaints, except as documented Genitourinary Genitourinary: Reports system reviewed and no additional complaints, except as documented Integumentary/Breasts Skin/Breast: Reports system reviewed and no additional complaints, except as documented Neurologic Neurologic: Reports system reviewed and no additional complaints, except as documented Hematologic/Lymphatic On Anticoagulants: No Patient History <Charbel Matt DO - Last Filed: 07/06/21 07:06> Medical History ADHD (attention deficit hyperactivity disorder) (6) Alcohol abuse (1961) Arthritis (1945) Cataract (2004) Chicken pox (1950) Chronic back pain (1972) COPD (chronic obstructive pulmonary disease) (2016) Excessive daytime sleepiness Hearing loss (1994) History of cerebellar stroke Hypertension (2016) Measles (1948) Mumps (1951) Obstructive sleep apnea syndrome Prediabetes Recurrent sinusitis (1994) Rheumatic fever (1961) Tinnitus (1945) Vertigo (2016) Surgical History Anesthesia History of cataract removal with insertion of prosthetic lens (06/24/17) History of cataract removal with insertion of prosthetic lens (07/06/17) Family History Father Heart disease Hypertension Mental health problem Stroke Mother Hypertension Mental health problem Alzheimer's disease Sister Age: 70 Fibromyalgia Grandfather Alzheimer's disease Grandmother No problems noted. Grandfather Black lung disease Grandmother Diabetes mellitus Social History marital status: unmarried,single household members: family lives independently: Yes pets and animals: No education level: college a[place]/mandaen: mu-ism seatbelt use: always water heater temp set < 120 deg: Yes working smoke detector in home: Yes fire extinguisher in home: No carbon monox detector in home: Yes firearms in home: Yes Smoking Status: Former smoker alcohol intake: former during the past year weight has: remained stable well-balanced diet: daily or most days daily servings fruits/ve-1 caffeine: Yes eating out: 4 or more times/week Type(s) of exercise: other frequency: 3-4 times per week duration: > 90 minutes/day Smoking Status: Former smoker Substance Use Type: does not use Exam <Charbel Matt DO - Last Filed: 07/06/21 07:06> Initial Vital Signs Initial Vital Signs: Vital Signs Pulse Rate 93 H 07/04/21 06:37 Pulse Oximetry 91 07/04/21 06:37 Const General: cooperative, comfortable, well developed and No acute distress HENMT Head: normal to inspection and normocephalic Resp Effort & Inspection: normal respiratory effort and not tachypneic Auscultation: clear to auscultation bilaterally Cardio Rate: regular rate Rhythm: regular rhythm GI Inspection: normal to inspection Skin General: no rashes or lesions noted Neuro General: patient alert, patient awake and moves all extremities Extrem General: normal to inspection, capillary refill normal and No edema Psych Appearance: grossly normal and well kempt <Kelechi Cheatham MD - Last Filed: 07/04/21 08:43> Initial Vital Signs Initial Vital Signs: Vital Signs Pulse Rate 93 H 07/04/21 06:37 Pulse Oximetry 91 07/04/21 06:37 Course <Charbel Matt DO - Last Filed: 07/06/21 07:06> Orders Ordered: Acetaminophen (Acetaminophen 325 Mg Tablet) 650 mg PO Q6HR [facility] Last Admin: 07/06/21 05:32 Dose: 650 mg Documented by: Admin: 07/06/21 00:59 Dose: Not Given Documented by: Admin: 07/05/21 17:09 Dose: Not Given Documented by: Admin: 07/05/21 13:00 Dose: Not Given Documented by: Admin: 07/05/21 06:35 Dose: 650 mg Documented by: Admin: 07/05/21 01:36 Dose: Not Given Documented by: Admin: 07/04/21 19:04 Dose: Not Given Documented by: Admin: 07/04/21 16:52 Dose: 650 mg Documented by: SAMSON Acetaminophen (Acetaminophen 325 Mg Tablet) 650 mg PO Q6HR PRN PRN Reason: Fever/Mild Pain (1-3) Albuterol (Albuterol Hfa Mdi 60 Puff/8 Gm Inhaler) 2 puff INH RTQ4HR PRN PRN Reason: Shortness Of Breath Amlodipine Besylate (Amlodipine 5 Mg Tablet) 10 mg PO DAILY [facility] Last Admin: 07/05/21 08:09 Dose: 10 mg Documented by: RENATE Aspirin (Aspirin Ec 81 Mg Tablet) 81 mg PO DAILY [facility] Last Admin: 07/05/21 08:06 Dose: 81 mg Documented by: RENATE Budesonide (Budesonide 0.5 Mg/2 Ml Neb) 0.5 mg INH RTBID [facility] Last Admin: 07/05/21 18:10 Dose: Not Given Documented by: Admin: 07/05/21 08:38 Dose: Not Given Documented by: Admin: 07/04/21 20:41 Dose: Not Given Documented by: MATTHIEU Dexamethasone (Dexamethasone 10 Mg/Ml Vial) 6 mg IV DAILY [facility] Last Admin: 07/05/21 08:05 Dose: 6 mg Documented by: RENATE Enoxaparin Sodium (Enoxaparin 40 Mg/0.4 Ml Syringe) 40 mg SUBCUT DAILY [facility] Last Admin: 07/05/21 08:06 Dose: 40 mg Documented by: Admin: 07/04/21 16:52 Dose: 40 mg Documented by: SAMSON Remdesivir 100 mg/ Sodium (Chloride) 250 mls @ 250 mls/hr IV DAILY [facility] Stop: 07/08/21 09:59 Last Admin: 07/05/21 08:10 Dose: 250 mls/hr Documented by: RENATE Lisinopril (Lisinopril 20 Mg Tablet) 40 mg PO DAILY [facility] Last Admin: 07/05/21 08:09 Dose: 40 mg Documented by: RENATE Magnesium Hydroxide (Magnesium Hydroxide 30 Ml Udc) 30 ml PO DAILY PRN PRN Reason: Constipation Naloxone HCl (Naloxone 0.4 Mg/Ml Vial) 0.2 mg IV Q2MIN PRN PRN Reason: Opiate Reversal Ondansetron HCl (Ondansetron 4 Mg/2 Ml Inj) 4 mg IV Q8HR PRN PRN Reason: Nausea And Vomiting Pantoprazole Sodium (Pantoprazole Dr 20 Mg Tablet) 20 mg PO 0600 [facility] Last Admin: 07/06/21 05:32 Dose: 20 mg Documented by: Admin: 07/05/21 06:35 Dose: 20 mg Documented by: KLAUS Tamsulosin HCl (Tamsulosin 0.4 Mg Capsule) 0.4 mg PO DAILY [facility] Last Admin: 07/05/21 08:05 Dose: 0.4 mg Documented by: RENATE Tamsulosin HCl (Tamsulosin 0.4 Mg Capsule) 0.4 mg PO DAILY [facility] Last Admin: 07/05/21 13:22 Dose: Not Given Documented by: RENATE Discontinued Medications Albuterol (Albuterol Hfa Mdi 60 Puff/8 Gm Inhaler) 2 puff INH Q4H PRN PRN Reason: shortness of breath or wheezing Albuterol (Albuterol 2.5 Mg/3 Ml Neb (Adult)) 2.5 mg INH Q4H PRN PRN Reason: shortness of breath or wheezing Albuterol (Albuterol 2.5 Mg/3 Ml Neb (Adult)) 2.5 mg INH [id number] [facility] Last Admin: 07/05/21 10:54 Dose: Not Given Documented by: Admin: 07/05/21 08:38 Dose: Not Given Documented by: Admin: 07/04/21 23:22 Dose: Not Given Documented by: Admin: 07/04/21 20:41 Dose: Not Given Documented by: Admin: 07/04/21 15:00 Dose: Not Given Documented by: NLUCAS Sodium Chloride (Normal Saline 0.9%) 1,000 mls @ 100 mls/hr IV CONT [facility] Last Infusion: 07/04/21 10:21 Dose: 0 mls/hr Documented by: Admin: 07/04/21 06:44 Dose: 100 mls/hr Documented by: LUCIEN Remdesivir 200 mg/ Sodium (Chloride) 250 mls @ 250 mls/hr IV NOW ONE Stop: 07/04/21 07:50 Last Infusion: 07/04/21 10:17 Dose: 0 mls/hr Documented by: Admin: 07/04/21 07:42 Dose: 250 mls/hr Documented by: DELBERT Methylprednisolone (Methylprednisolone 125 Mg/2 Ml Vial) 125 mg IV NOW ONE Stop: 07/04/21 06:38 Last Admin: 07/04/21 06:43 Dose: 125 mg Documented by: LUCIEN Vital Signs Vital signs: Vital Signs - 8 hr 07/04/21 06:48 Temperature 98.7 F Pulse Rate 95 H Respiratory Rate 22 Blood Pressure 144/67 H Pulse Oximetry 86 L <Kelechi Cheatham MD - Last Filed: 07/04/21 08:43> Course Course Narrative: Care was assumed at change of shift from Dr. Matt. Admission is necessary due to hypoxia. O2 sats upon arrival were mid 80s. He has COPD managed at home with Symbicort and albuterol. He is COVID-19 positive. RT has managed him with multiple nebs. He received Solu-Medrol shortly after arrival, prior to the COVID-19 diagnosis. He has also received Remdesivir at this time. RT has wean his oxygen a bit, he is currently about 92% O2 sat on 2.5 L nasal cannula. He is comfortable. The case was discussed with the on-call physician, Dr. Nolan. The patient will be admitted.-Kyaw KAYE. 07/04/21@08:32. Orders Ordered: Acetaminophen (Acetaminophen 325 Mg Tablet) 650 mg PO Q6HR [facility] Last Admin: 07/06/21 05:32 Dose: 650 mg Documented by: Admin: 07/06/21 00:59 Dose: Not Given Documented by: Admin: 07/05/21 17:09 Dose: Not Given Documented by: Admin: 07/05/21 13:00 Dose: Not Given Documented by: Admin: 07/05/21 06:35 Dose: 650 mg Documented by: Admin: 07/05/21 01:36 Dose: Not Given Documented by: Admin: 07/04/21 19:04 Dose: Not Given Documented by: Admin: 07/04/21 16:52 Dose: 650 mg Documented by: SAMSON Acetaminophen (Acetaminophen 325 Mg Tablet) 650 mg PO Q6HR PRN PRN Reason: Fever/Mild Pain (1-3) Albuterol (Albuterol Hfa Mdi 60 Puff/8 Gm Inhaler) 2 puff INH RTQ4HR PRN PRN Reason: Shortness Of Breath Amlodipine Besylate (Amlodipine 5 Mg Tablet) 10 mg PO DAILY [facility] Last Admin: 07/05/21 08:09 Dose: 10 mg Documented by: RENATE Aspirin (Aspirin Ec 81 Mg Tablet) 81 mg PO DAILY [facility] Last Admin: 07/05/21 08:06 Dose: 81 mg Documented by: RENATE Budesonide (Budesonide 0.5 Mg/2 Ml Neb) 0.5 mg INH RTBID [facility] Last Admin: 07/05/21 18:10 Dose: Not Given Documented by: Admin: 07/05/21 08:38 Dose: Not Given Documented by: Admin: 07/04/21 20:41 Dose: Not Given Documented by: MATTHIEU Dexamethasone (Dexamethasone 10 Mg/Ml Vial) 6 mg IV DAILY [facility] Last Admin: 07/05/21 08:05 Dose: 6 mg Documented by: RENATE Enoxaparin Sodium (Enoxaparin 40 Mg/0.4 Ml Syringe) 40 mg SUBCUT DAILY [facility] Last Admin: 07/05/21 08:06 Dose: 40 mg Documented by: Admin: 07/04/21 16:52 Dose: 40 mg Documented by: SAMSON Remdesivir 100 mg/ Sodium (Chloride) 250 mls @ 250 mls/hr IV DAILY [facility] Stop: 07/08/21 09:59 Last Admin: 07/05/21 08:10 Dose: 250 mls/hr Documented by: RENATE Lisinopril (Lisinopril 20 Mg Tablet) 40 mg PO DAILY [facility] Last Admin: 07/05/21 08:09 Dose: 40 mg Documented by: RENATE Magnesium Hydroxide (Magnesium Hydroxide 30 Ml Udc) 30 ml PO DAILY PRN PRN Reason: Constipation Naloxone HCl (Naloxone 0.4 Mg/Ml Vial) 0.2 mg IV Q2MIN PRN PRN Reason: Opiate Reversal Ondansetron HCl (Ondansetron 4 Mg/2 Ml Inj) 4 mg IV Q8HR PRN PRN Reason: Nausea And Vomiting Pantoprazole Sodium (Pantoprazole Dr 20 Mg Tablet) 20 mg PO 0600 [facility] Last Admin: 07/06/21 05:32 Dose: 20 mg Documented by: Admin: 07/05/21 06:35 Dose: 20 mg Documented by: KLAUS Tamsulosin HCl (Tamsulosin 0.4 Mg Capsule) 0.4 mg PO DAILY [facility] Last Admin: 07/05/21 08:05 Dose: 0.4 mg Documented by: RENATE Tamsulosin HCl (Tamsulosin 0.4 Mg Capsule) 0.4 mg PO DAILY [facility] Last Admin: 07/05/21 13:22 Dose: Not Given Documented by: RENATE Discontinued Medications Albuterol (Albuterol Hfa Mdi 60 Puff/8 Gm Inhaler) 2 puff INH Q4H PRN PRN Reason: shortness of breath or wheezing Albuterol (Albuterol 2.5 Mg/3 Ml Neb (Adult)) 2.5 mg INH Q4H PRN PRN Reason: shortness of breath or wheezing Albuterol (Albuterol 2.5 Mg/3 Ml Neb (Adult)) 2.5 mg INH [id number] [facility] Last Admin: 07/05/21 10:54 Dose: Not Given Documented by: Admin: 07/05/21 08:38 Dose: Not Given Documented by: Admin: 07/04/21 23:22 Dose: Not Given Documented by: Admin: 07/04/21 20:41 Dose: Not Given Documented by: Admin: 07/04/21 15:00 Dose: Not Given Documented by: KYRIEUCAAzalia Sodium Chloride (Normal Saline 0.9%) 1,000 mls @ 100 mls/hr IV CONT [facility] Last Infusion: 07/04/21 10:21 Dose: 0 mls/hr Documented by: Admin: 07/04/21 06:44 Dose: 100 mls/hr Documented by: LUCIEN Remdesivir 200 mg/ Sodium (Chloride) 250 mls @ 250 mls/hr IV NOW ONE Stop: 07/04/21 07:50 Last Infusion: 07/04/21 10:17 Dose: 0 mls/hr Documented by: Admin: 07/04/21 07:42 Dose: 250 mls/hr Documented by: DELBERT Methylprednisolone (Methylprednisolone 125 Mg/2 Ml Vial) 125 mg IV NOW ONE Stop: 07/04/21 06:38 Last Admin: 07/04/21 06:43 Dose: 125 mg Documented by: LUCIEN Vital Signs Vital signs: Vital Signs - 8 hr 07/04/21 06:48 Temperature 98.7 F Pulse Rate 95 H Respiratory Rate 22 Blood Pressure 144/67 H Pulse Oximetry 86 L Medical Decision Making <Charbel Matt DO - Last Filed: 07/06/21 07:06> Lab Data Result diagrams: 07/05/21 05:15 07/05/21 05:15 Labs: Lab Results 07/04/21 07/04/21 07/04/21 Range/Units 06:35 06:50 06:50 WBC (4.5-11.0) X10^3/uL RBC (4.5-5.9) X10^6/uL Hgb (13.5-17.5) g/dL Hct (41-53) % MCV (80-100) fL MCH (26-34) PG MCHC (30-36) % RDW (11.6-14.8) % Plt Count (150-400) X10^3/uL Neut % (Auto) (50-75) % Lymph % (Auto) (25-40) % [place] % (Auto) (3-14) % Eos % (Auto) (2-4) % Baso % (Auto) (0-2) % Neut # (Auto) (6217-9055) /uL Lymph # (Auto) (6231-9092) /uL [place] # (Auto) (0-900) /uL Eos # (Auto) (0-450) /uL Baso # (Auto) (0-100) /uL Plt Morphology Comment RBC Morphology D-Dimer 686 H (<230) ng/mL Sodium 137 (137-145) mmol/L Potassium 3.8 (3.4-5.1) mmol/L Chloride 106 (98-107) mmol/L Carbon Dioxide 21 L (22-32) mmol/L BUN 22 H (9-20) mg/dL Creatinine 1.33 H (0.66-1.25) mg/dL Estimated GFR 52.4 L (>60) mL/min BUN/Creatinine Ratio 16.5 (6-22) Glucose 126 H (80-110) mg/dL Lactate (0.7-2.1) mmol/L Calcium 9.1 (8.4-10.2) mg/dL Magnesium 2.0 (1.6-2.3) mg/dL Ferritin (18-464) ng/mL Total Bilirubin 1.0 (0.2-1.3) mg/dL AST 82 H (17-59) IU/L ALT 41 (<50) IU/L Alkaline Phosphatase 104 (38-126) U/L Lactate Dehydrogenase (313-618) U/L Total Creatine Kinase 245 H (55-170) U/L CK-MB (CK-2) 1.97 (<2.37) ng/mL CK-MB (CK-2) Rel Index 0.8 L (1.5-5.0) % Troponin I 0.044 H (0.01-0.034) ng/mL C-Reactive Protein (<1.0) mg/dL NT-Pro-B Natriuret Pep 176 (<450) pg/mL Total Protein 7.2 (6.3-8.2) g/dL Albumin 4.0 (3.5-5.0) g/dL Globulin 3.2 (1.7-4.1) g/dL Albumin/Globulin Ratio 1.3 (1.0-2.8) Lipase 208 (23-300) U/L Procalcitonin (<0.5) ng/mL SARS-CoV-2 (PCR) Positive H (Negative) 07/04/21 07/04/21 07/04/21 Range/Units 06:50 06:50 06:50 WBC (4.5-11.0) X10^3/uL RBC (4.5-5.9) X10^6/uL Hgb (13.5-17.5) g/dL Hct (41-53) % MCV (80-100) fL MCH (26-34) PG MCHC (30-36) % RDW (11.6-14.8) % Plt Count (150-400) X10^3/uL Neut % (Auto) (50-75) % Lymph % (Auto) (25-40) % [place] % (Auto) (3-14) % Eos % (Auto) (2-4) % Baso % (Auto) (0-2) % Neut # (Auto) (9721-4056) /uL Lymph # (Auto) (3009-7363) /uL [place] # (Auto) (0-900) /uL Eos # (Auto) (0-450) /uL Baso # (Auto) (0-100) /uL Plt Morphology Comment RBC Morphology D-Dimer (<230) ng/mL Sodium (137-145) mmol/L Potassium (3.4-5.1) mmol/L Chloride (98-107) mmol/L Carbon Dioxide (22-32) mmol/L BUN (9-20) mg/dL Creatinine (0.66-1.25) mg/dL Estimated GFR (>60) mL/min BUN/Creatinine Ratio (6-22) Glucose (80-110) mg/dL Lactate 1.2 (0.7-2.1) mmol/L Calcium (8.4-10.2) mg/dL Magnesium (1.6-2.3) mg/dL Ferritin 275 (18-464) ng/mL Total Bilirubin (0.2-1.3) mg/dL AST (17-59) IU/L ALT (<50) IU/L Alkaline Phosphatase (38-126) U/L Lactate Dehydrogenase 1169 H (313-618) U/L Total Creatine Kinase (55-170) U/L CK-MB (CK-2) (<2.37) ng/mL CK-MB (CK-2) Rel Index (1.5-5.0) % Troponin I (0.01-0.034) ng/mL C-Reactive Protein 5.9 H (<1.0) mg/dL NT-Pro-B Natriuret Pep (<450) pg/mL Total Protein (6.3-8.2) g/dL Albumin (3.5-5.0) g/dL Globulin (1.7-4.1) g/dL Albumin/Globulin Ratio (1.0-2.8) Lipase (23-300) U/L Procalcitonin 0.16 (<0.5) ng/mL SARS-CoV-2 (PCR) (Negative) 07/04/21 Range/Units 07:40 WBC 6.9 (4.5-11.0) X10^3/uL RBC 4.38 L (4.5-5.9) X10^6/uL Hgb 14.0 (13.5-17.5) g/dL Hct 39.3 L (41-53) % MCV 89.9 (80-100) fL MCH 32.0 (26-34) PG MCHC 35.5 (30-36) % RDW 13.4 (11.6-14.8) % Plt Count 150 (150-400) X10^3/uL Neut % (Auto) 72.9 (50-75) % Lymph % (Auto) 16.5 L (25-40) % [place] % (Auto) 10.3 (3-14) % Eos % (Auto) 0.0 L (2-4) % Baso % (Auto) 0.3 (0-2) % Neut # (Auto) 5000 (3619-4910) /uL Lymph # (Auto) 1100 (0885-3184) /uL [place] # (Auto) 700 (0-900) /uL Eos # (Auto) 0 (0-450) /uL Baso # (Auto) 0 (0-100) /uL Plt Morphology Comment N RBC Morphology Normal morphology D-Dimer (<230) ng/mL Sodium (137-145) mmol/L Potassium (3.4-5.1) mmol/L Chloride (98-107) mmol/L Carbon Dioxide (22-32) mmol/L BUN (9-20) mg/dL Creatinine (0.66-1.25) mg/dL Estimated GFR (>60) mL/min BUN/Creatinine Ratio (6-22) Glucose (80-110) mg/dL Lactate (0.7-2.1) mmol/L Calcium (8.4-10.2) mg/dL Magnesium (1.6-2.3) mg/dL Ferritin (18-464) ng/mL Total Bilirubin (0.2-1.3) mg/dL AST (17-59) IU/L ALT (<50) IU/L Alkaline Phosphatase (38-126) U/L Lactate Dehydrogenase (313-618) U/L Total Creatine Kinase (55-170) U/L CK-MB (CK-2) (<2.37) ng/mL CK-MB (CK-2) Rel Index (1.5-5.0) % Troponin I (0.01-0.034) ng/mL C-Reactive Protein (<1.0) mg/dL NT-Pro-B Natriuret Pep (<450) pg/mL Total Protein (6.3-8.2) g/dL Albumin (3.5-5.0) g/dL Globulin (1.7-4.1) g/dL Albumin/Globulin Ratio (1.0-2.8) Lipase (23-300) U/L Procalcitonin (<0.5) ng/mL SARS-CoV-2 (PCR) (Negative) Imaging Data Chest x-ray: Radiologist's Impression: [address] [address] XRay Report Signed Patient: Charbel Rodrigues MR#: [id number] : 1945 Acct:[id number] Age/Sex: 76 / M Date of Service: 07/04/21 Loc: ED Accession Number: [id number] ?? Procedure: XR chest 1V Ordering Provider: Charbel Matt D.O. PROCEDURE:? XR CHEST 1V ? INDICATIONS:? SOB with hypoxia ? TECHNIQUE:? One view of the chest was acquired.? ? COMPARISON:? [facility], CT, CT CHEST WO CON, 08/20/2020, 10:46.? [facility], CR, CHEST 2 VIEW, 11/16/2017, 15:05. ? FINDINGS:? ? Surgical changes and devices:? None.? ? Lungs and pleura:? Patchy airspace opacities in the medial aspect of the bilateral lung bases.? Findings are more pronounced on the left.? Mild diffuse interstitial prominence, compatible with chronic interstitial disease.? No pneumothorax or pleural effusion. ? Mediastinum:? Mediastinal contours appear normal.? Heart size is normal.? ? Bones and chest wall:? No suspicious bony lesions.? Overlying soft tissues appear unremarkable.? ? IMPRESSION:? Patchy medial bibasilar airspace opacities which may represent atelectasis and/or developing airspace disease/pneumonia. ? Recommend follow up chest radiograph 4-6 weeks after treatment to document resolution of findings and/or return to baseline examination. ? ? Dictated by: Reginaldo Greene M.D. on 07/04/2021 at 7:19 ? ? Approved by: Reginaldo Greene M.D. on 07/04/2021 at 7:21? MDM Narrative Medical decision making narrative: Patient is hypoxic on room air. This improves with oxygen by nasal cannula 2 L. He denies any chest pain. Lungs are clear. He is on vaccine against COVID. Will begin workup for COPD to include EKG and chest x-ray. Care turned over to Dr. Cheatham at change of shift to continue with evaluation and disposition. <Kelechi Cheatham MD - Last Filed: 07/04/21 08:43> Lab Data Labs: Lab Results 07/04/21 07/04/21 07/04/21 Range/Units 06:35 06:50 06:50 WBC (4.5-11.0) X10^3/uL RBC (4.5-5.9) X10^6/uL Hgb (13.5-17.5) g/dL Hct (41-53) % MCV (80-100) fL MCH (26-34) PG MCHC (30-36) % RDW (11.6-14.8) % Plt Count (150-400) X10^3/uL Neut % (Auto) (50-75) % Lymph % (Auto) (25-40) % [place] % (Auto) (3-14) % Eos % (Auto) (2-4) % Baso % (Auto) (0-2) % Neut # (Auto) (2461-9393) /uL Lymph # (Auto) (4133-2442) /uL [place] # (Auto) (0-900) /uL Eos # (Auto) (0-450) /uL Baso # (Auto) (0-100) /uL Plt Morphology Comment RBC Morphology D-Dimer 686 H (<230) ng/mL Sodium 137 (137-145) mmol/L Potassium 3.8 (3.4-5.1) mmol/L Chloride 106 (98-107) mmol/L Carbon Dioxide 21 L (22-32) mmol/L BUN 22 H (9-20) mg/dL Creatinine 1.33 H (0.66-1.25) mg/dL Estimated GFR 52.4 L (>60) mL/min BUN/Creatinine Ratio 16.5 (6-22) Glucose 126 H (80-110) mg/dL Lactate (0.7-2.1) mmol/L Calcium 9.1 (8.4-10.2) mg/dL Magnesium 2.0 (1.6-2.3) mg/dL Ferritin (18-464) ng/mL Total Bilirubin 1.0 (0.2-1.3) mg/dL AST 82 H (17-59) IU/L ALT 41 (<50) IU/L Alkaline Phosphatase 104 (38-126) U/L Lactate Dehydrogenase (313-618) U/L Total Creatine Kinase 245 H (55-170) U/L CK-MB (CK-2) 1.97 (<2.37) ng/mL CK-MB (CK-2) Rel Index 0.8 L (1.5-5.0) % Troponin I 0.044 H (0.01-0.034) ng/mL C-Reactive Protein (<1.0) mg/dL NT-Pro-B Natriuret Pep 176 (<450) pg/mL Total Protein 7.2 (6.3-8.2) g/dL Albumin 4.0 (3.5-5.0) g/dL Globulin 3.2 (1.7-4.1) g/dL Albumin/Globulin Ratio 1.3 (1.0-2.8) Lipase 208 (23-300) U/L Procalcitonin (<0.5) ng/mL SARS-CoV-2 (PCR) Positive H (Negative) 07/04/21 07/04/21 07/04/21 Range/Units 06:50 06:50 06:50 WBC (4.5-11.0) X10^3/uL RBC (4.5-5.9) X10^6/uL Hgb (13.5-17.5) g/dL Hct (41-53) % MCV (80-100) fL MCH (26-34) PG MCHC (30-36) % RDW (11.6-14.8) % Plt Count (150-400) X10^3/uL Neut % (Auto) (50-75) % Lymph % (Auto) (25-40) % [place] % (Auto) (3-14) % Eos % (Auto) (2-4) % Baso % (Auto) (0-2) % Neut # (Auto) (8465-2609) /uL Lymph # (Auto) (7032-7791) /uL [place] # (Auto) (0-900) /uL Eos # (Auto) (0-450) /uL Baso # (Auto) (0-100) /uL Plt Morphology Comment RBC Morphology D-Dimer (<230) ng/mL Sodium (137-145) mmol/L Potassium (3.4-5.1) mmol/L Chloride (98-107) mmol/L Carbon Dioxide (22-32) mmol/L BUN (9-20) mg/dL Creatinine (0.66-1.25) mg/dL Estimated GFR (>60) mL/min BUN/Creatinine Ratio (6-22) Glucose (80-110) mg/dL Lactate 1.2 (0.7-2.1) mmol/L Calcium (8.4-10.2) mg/dL Magnesium (1.6-2.3) mg/dL Ferritin 275 (18-464) ng/mL Total Bilirubin (0.2-1.3) mg/dL AST (17-59) IU/L ALT (<50) IU/L Alkaline Phosphatase (38-126) U/L Lactate Dehydrogenase 1169 H (313-618) U/L Total Creatine Kinase (55-170) U/L CK-MB (CK-2) (<2.37) ng/mL CK-MB (CK-2) Rel Index (1.5-5.0) % Troponin I (0.01-0.034) ng/mL C-Reactive Protein 5.9 H (<1.0) mg/dL NT-Pro-B Natriuret Pep (<450) pg/mL Total Protein (6.3-8.2) g/dL Albumin (3.5-5.0) g/dL Globulin (1.7-4.1) g/dL Albumin/Globulin Ratio (1.0-2.8) Lipase (23-300) U/L Procalcitonin 0.16 (<0.5) ng/mL SARS-CoV-2 (PCR) (Negative) 12/11/21 Range/Units 07:40 WBC 6.9 (4.5-11.0) X10^3/uL RBC 4.38 L (4.5-5.9) X10^6/uL Hgb 14.0 (13.5-17.5) g/dL Hct 39.3 L (41-53) % MCV 89.9 (80-100) fL MCH 32.0 (26-34) PG MCHC 35.5 (30-36) % RDW 13.4 (11.6-14.8) % Plt Count 150 (150-400) X10^3/uL Neut % (Auto) 72.9 (50-75) % Lymph % (Auto) 16.5 L (25-40) % [place] % (Auto) 10.3 (3-14) % Eos % (Auto) 0.0 L (2-4) % Baso % (Auto) 0.3 (0-2) % Neut # (Auto) 5000 (2503-9951) /uL Lymph # (Auto) 1100 (4881-1805) /uL [place] # (Auto) 700 (0-900) /uL Eos # (Auto) 0 (0-450) /uL Baso # (Auto) 0 (0-100) /uL Plt Morphology Comment N RBC Morphology Normal morphology D-Dimer (<230) ng/mL Sodium (137-145) mmol/L Potassium (3.4-5.1) mmol/L Chloride (98-107) mmol/L Carbon Dioxide (22-32) mmol/L BUN (9-20) mg/dL Creatinine (0.66-1.25) mg/dL Estimated GFR (>60) mL/min BUN/Creatinine Ratio (6-22) Glucose (80-110) mg/dL Lactate (0.7-2.1) mmol/L Calcium (8.4-10.2) mg/dL Magnesium (1.6-2.3) mg/dL Ferritin (18-464) ng/mL Total Bilirubin (0.2-1.3) mg/dL AST (17-59) IU/L ALT (<50) IU/L Alkaline Phosphatase (38-126) U/L Lactate Dehydrogenase (313-618) U/L Total Creatine Kinase (55-170) U/L CK-MB (CK-2) (<2.37) ng/mL CK-MB (CK-2) Rel Index (1.5-5.0) % Troponin I (0.01-0.034) ng/mL C-Reactive Protein (<1.0) mg/dL NT-Pro-B Natriuret Pep (<450) pg/mL Total Protein (6.3-8.2) g/dL Albumin (3.5-5.0) g/dL Globulin (1.7-4.1) g/dL Albumin/Globulin Ratio (1.0-2.8) Lipase (23-300) U/L Procalcitonin (<0.5) ng/mL SARS-CoV-2 (PCR) (Negative) ECG Data Attestation: I personally reviewed and interpreted this ECG as follows: (Normal sinus rhythm rate 83 beats per minute. Normal intervals. No ectopy. No acute ST T wave changes.) <Kelechi Cheatham MD - Last Filed: 07/04/21 08:43> Critical Care Time Critical Care Time: Yes Total Critical Care Time: 50 Attestation: Critical care time included initial patient evaluation, and review of medical records. EKG, lab in radiology data was reviewed. Multiple clinical decisions were required. The patient's four view of the clinical situation. The patient's situation was discussed with the covering/admitting physician. Discharge Plan Departure Patient Disposition: Admitted As Inpatient Clinical Impression: COVID-19, Hypoxia, COPD (chronic obstructive pulmonary disease), Bruit of left carotid artery Admit Date/Time: 07/04/21 08:48 Admit Provider: Kelechi Nolan
[2021-07-04] MEDS: SODIUM CHLORIDE 0.9% 1,000 ML 100 ML IV (06:44)
[2021-07-04 06:50] LABS: COVID19 -Nasal RAPID POSITIVE (Negative)
[2021-07-04 07:14] LABS: Lactate (Lactic Acid) 1.2 mmol/L (0.7-2.1)
[2021-07-04 07:16] LABS: Alanine Aminotransferase 41 IU/L (<50); Albumin Globulin Ratio 1.3 (1.0-2.8); Alkaline Phosphatase 104 U/L (38-126); Aspartate Aminotransferase 82 IU/L (17-59); BUN Creatinine Ratio 16.5 (6-22); Blood Urea Nitrogen 22 mg/dL (9-20); Calcium 9.1 mg/dL (8.4-10.2); Carbon Dioxide 21 mmol/L (22-32); Chloride 106 mmol/L (98-107); Creatine Kinase 245 U/L (55-170); Estimated Glomerular Filt Rate 52.4 mL/min (>60); Globulin 3.2 g/dL (1.7-4.1); Glucose 126 mg/dL (80-110); Lipase 208 U/L (23-300); Potassium 3.8 mmol/L (3.4-5.1); Sodium 137 mmol/L (137-145); Total Protein 7.2 g/dL (6.3-8.2)
[2021-07-04 07:17] LABS: C-Reactive Protein Quant 5.9 mg/dL (<1.0); Lactate Dehydrogenase 1169 U/L (313-618)
[2021-07-04 07:27] LABS: D Dimer 686 ng/mL (<230); NT-proBNP (BNP-Adult 18+) 176 pg/mL (<450); Troponin I 0.044 ng/mL (0.01-0.034)
[2021-07-04 07:30] LABS: CKMB % Relative Index 0.8 % (1.5-5.0); Creatine Kinase MB 1.97 ng/mL (<2.37); HEMOLYSIS 37 (0-50)
[2021-07-04 07:33] LABS: Procalcitonin 0.16 ng/mL (<0.5)
[2021-07-04] MEDS: REMDESIVIR 200 MG in SODIUM CHLORIDE 0.9% 210 ML 250 ML IV (07:42)
[2021-07-04 07:50] LABS: Ferritin 275 ng/mL (18-464)
[2021-07-04 08:02] LABS: Basophils Absolute Auto 0 /uL (0-100); Basophils Percent Auto 0.3 % (0-2); Eosinophils Absolute Auto 0 /uL (0-450); Hematocrit 39.3 % (41-53); Lymphocytes Absolute Auto 1100 /uL (1100-4500); Lymphocytes Percent Auto 16.5 % (25-40); Mean Corpuscular HGB Conc 35.5 % (30-36); Mean Corpuscular Volume 89.9 fL (80-100); Monocytes Absolute Auto 700 /uL (0-900); Monocytes Percent Auto 10.3 % (3-14); Neutrophils Absolute Auto 5000 /uL (1500-7000); Neutrophils Percent Auto 72.9 % (50-75); Platelet Count 150 X10^3/uL (150-400); Red Blood Cell Count 4.38 X10^6/uL (4.5-5.9); Red Cell Distribution Width 13.4 % (11.6-14.8); White Blood Cell Count 6.9 X10^3/uL (4.5-11.0)
[2021-07-04 08:35] LABS: Add Manual Diff / Slide Review SLIDE REVIEW
[2021-07-04 08:36] LABS: Platelet Morphology Comment N; RBC Morphology Normal Morphology
--- NOTE | 2021-07-04 12:37 | P.HP_ITS ---
History of Present Illness History of Present Illness Date Patient Seen: 07/04/21 Time Patient Seen: 12:37 Chief complaint: COPD Exacerbation Narrative: Patient is a 76-year-old male patient of Dr. Costello who has not been feeling well over the last week. Patient was not really sure what was going on but felt as if things were not doing well. He was having increasing shortness of breath and cough. Seemed to be doing overall well up until 2 days ago when he began having increasingly shortness of breath. Patient is non vaccinated. He got to the point where he was is feeling like he could not agree and his shortness of breath continued to get worse and he called 911. He has had no chest pain no nausea vomiting no burning with urination change in his urine change in his bowel function. She had no edema. He has otherwise been feeling well. Very quiet man. Patient was found to be quite hypoxic when EMS arrived was brought to the emergency room. Apparently has a history of alcohol abuse but not actively drinking Patient History Medical History ADHD (attention deficit hyperactivity disorder) (194) Alcohol abuse (1961) Arthritis (1945) Cataract (2004) Chicken pox (1950) Chronic back pain (1972) COPD (chronic obstructive pulmonary disease) (2016) Excessive daytime sleepiness Hearing loss (1994) History of cerebellar stroke Hypertension (2016) Measles (1949) Mumps (1951) Obstructive sleep apnea syndrome Prediabetes Recurrent sinusitis (1994) Rheumatic fever (1961) Tinnitus (1945) Vertigo (2016) Surgical History Anesthesia History of cataract removal with insertion of prosthetic lens (06/24/17) History of cataract removal with insertion of prosthetic lens (07/06/17) Family & Social History Family History Father Heart disease Hypertension Mental health problem Stroke Mother Hypertension Mental health problem Alzheimer's disease Sister Age: 70 Fibromyalgia Grandfather Alzheimer's disease Grandmother No problems noted. Grandfather Black lung disease Grandmother Diabetes mellitus Social History: household members family Prior Living Arrangements House lives independently Yes Safety & Behavioral: Feels Safe in Current Yes Environment Suicidal Ideation Description None Suicide Plan Description No Plan Tobacco & Substance use: Smoking Status Former smoker alcohol intake former Substance Use Type does not use Meds Home Medications and Allergies Home Medications Medication Instructions Recorded Confirmed Type acetaminophen 325 mg tablet 650 mg PO Q6HR PRN #30 tab 12/17/19 07/04/21 Rx aspirin 81 mg tablet,delayed 81 mg PO DAILY #30 tab 12/17/19 07/04/21 Rx release guaifenesin 600 mg tablet, 600 mg PO BID PRN #0 tab 12/17/19 07/04/21 Rx extended release 12 hr (Mucinex) polyethylene glycol 3350 17 gram 17 gm PO DAILY #30 ea 12/17/19 03/12/21 Rx oral powder packet albuterol sulfate 90 mcg/actuation 2 puff INHALATION Q4-6H PRN #54 05/16/20 07/04/21 Rx aerosol inhaler gram budesonide-formoterol HFA 80 See Rx Instructions .ROUTE 05/16/20 07/04/21 Rx mcg-4.5 mcg/actuation aerosol .COMPLEX #30.6 gram inhaler (Symbicort) amlodipine 10 mg tablet 10 mg PO DAILY #90 tab 01/09/21 07/04/21 Rx tamsulosin 0.4 mg capsule 0.4 mg PO DAILY #90 cap 02/26/21 07/04/21 Rx atorvastatin 80 mg tablet 80 mg PO BEDTIME #90 tab 06/10/21 07/04/21 Rx Saccharomyces boulardii 250 mg 250 mg PO DAILY 07/04/21 07/04/21 History capsule (Florastor) lisinopril 20 mg tablet 40 mg PO DAILY 07/04/21 07/04/21 History Allergies Allergy/AdvReac Type Severity Reaction Status Date / Time Sulfa (Sulfonamide Allergy Unknown Verified 07/04/21 06:48 Antibiotics) [SULFA (SULFONAMIDE ANTIBIOTICS)] Review of Systems Review of Systems Narrative: See history and physical all negative except documented Exam Vital Signs (past 8 hours): - 07/04/21 06:37 07/04/21 06:40 07/04/21 06:48 Temperature 98.7 F Pulse Rate 93 H 95 H 95 H Respiratory Rate 22 Blood Pressure 144/65 H 144/67 H Pulse Oximetry 91 91 86 L 07/04/21 07:00 07/04/21 07:30 07/04/21 08:00 Temperature Pulse Rate 88 89 78 Respiratory Rate 13 15 Blood Pressure 147/65 H Pulse Oximetry 96 95 92 07/04/21 08:30 07/04/21 09:00 07/04/21 09:30 Temperature Pulse Rate 73 69 69 Respiratory Rate Blood Pressure Pulse Oximetry 92 92 92 07/04/21 10:00 07/04/21 10:30 07/04/21 11:00 Temperature Pulse Rate 69 74 68 Respiratory Rate Blood Pressure Pulse Oximetry 93 92 94 07/04/21 11:30 Temperature 98.0 F Pulse Rate 82 Respiratory Rate 24 Blood Pressure 168/71 H Pulse Oximetry 95 Oxygen Delivery Method Nasal Cannula Oxygen Flow Rate 2 Narrative Exam Narrative: Alert quiet male with O2 in place no acute distress. Mucous membranes moist. HEENT exam otherwise unremarkable neck supple without adenopathy JVD or bruits. Lungs with decreased breath sounds occasional rhonchi no significant crackles. Heart regular rate and rhythm without murmurs clicks rubs or gallops. Somewhat distant. Abdomen is soft positive bowel sounds nontender extremities without cyanosis clubbing edema neurologic exam is nonfocal. Objective Labs Result Diagrams: 07/04/21 07:40 07/04/21 06:50 Labs: Laboratory Results - last 24 hr 07/04/21 07/04/21 07/04/21 06:35 06:50 06:50 WBC RBC Hgb Hct MCV MCH MCHC RDW Plt Count Neut % (Auto) Lymph % (Auto) [place] % (Auto) Eos % (Auto) Baso % (Auto) Neut # (Auto) Lymph # (Auto) [place] # (Auto) Eos # (Auto) Baso # (Auto) Plt Morphology Comment RBC Morphology D-Dimer 686 H Sodium 137 Potassium 3.8 Chloride 106 Carbon Dioxide 21 L BUN 22 H Creatinine 1.33 H Estimated GFR 52.4 L BUN/Creatinine Ratio 16.5 Glucose 126 H Lactate Calcium 9.1 Magnesium 2.0 Ferritin Total Bilirubin 1.0 AST 82 H ALT 41 Alkaline Phosphatase 104 Lactate Dehydrogenase Total Creatine Kinase 245 H CK-MB (CK-2) 1.97 CK-MB (CK-2) Rel Index 0.8 L Troponin I 0.044 H C-Reactive Protein NT-Pro-B Natriuret Pep 176 Total Protein 7.2 Albumin 4.0 Globulin 3.2 Albumin/Globulin Ratio 1.3 Lipase 208 Procalcitonin SARS-CoV-2 (PCR) Positive H 07/04/21 07/04/21 07/04/21 06:50 06:50 06:50 WBC RBC Hgb Hct MCV MCH MCHC RDW Plt Count Neut % (Auto) Lymph % (Auto) [place] % (Auto) Eos % (Auto) Baso % (Auto) Neut # (Auto) Lymph # (Auto) [place] # (Auto) Eos # (Auto) Baso # (Auto) Plt Morphology Comment RBC Morphology D-Dimer Sodium Potassium Chloride Carbon Dioxide BUN Creatinine Estimated GFR BUN/Creatinine Ratio Glucose Lactate 1.2 Calcium Magnesium Ferritin 275 Total Bilirubin AST ALT Alkaline Phosphatase Lactate Dehydrogenase 1169 H Total Creatine Kinase CK-MB (CK-2) CK-MB (CK-2) Rel Index Troponin I C-Reactive Protein 5.9 H NT-Pro-B Natriuret Pep Total Protein Albumin Globulin Albumin/Globulin Ratio Lipase Procalcitonin 0.16 SARS-CoV-2 (PCR) 07/04/21 07:40 WBC 6.9 RBC 4.38 L Hgb 14.0 Hct 39.3 L MCV 89.9 MCH 32.0 MCHC 35.5 RDW 13.4 Plt Count 150 Neut % (Auto) 72.9 Lymph % (Auto) 16.5 L [place] % (Auto) 10.3 Eos % (Auto) 0.0 L Baso % (Auto) 0.3 Neut # (Auto) 5000 Lymph # (Auto) 1100 [place] # (Auto) 700 Eos # (Auto) 0 Baso # (Auto) 0 Plt Morphology Comment N RBC Morphology Normal morphology D-Dimer Sodium Potassium Chloride Carbon Dioxide BUN Creatinine Estimated GFR BUN/Creatinine Ratio Glucose Lactate Calcium Magnesium Ferritin Total Bilirubin AST ALT Alkaline Phosphatase Lactate Dehydrogenase Total Creatine Kinase CK-MB (CK-2) CK-MB (CK-2) Rel Index Troponin I C-Reactive Protein NT-Pro-B Natriuret Pep Total Protein Albumin Globulin Albumin/Globulin Ratio Lipase Procalcitonin SARS-CoV-2 (PCR) Assessment & Plan Assessment & Plan narrative: Acute respiratory failure. Appears to be secondary to SARs but certainly patient does have COVID issues. I do not think we need to add high-dose s teroids but will support with his usual inhalers O2 which at this point is minimal. 2 L and he seems to be stable. Will need to follow closely certainly any worsening or change and will need to be more aggressive. He understands. We did discuss intubation at this point he thinks he wants to do that but will continue to discuss. Otherwise seems stable. Acute COVID pneumonia. I am currently with respiratory failure. Will treat with remdesivir and dexamethasone. Will hold biotnib for now. But will watch closely. Otherwise support. He understands this could get worse and could be very severe. COPD. At this time I think he is stable. No evidence of pneumonia. Or bacterial infection. All probably secondary to COVID will continue to follow. Repeat chest x-ray if any issue and consider antibiotic coverage and steroids if worsening or change. Usual inhalers. History of alcohol abuse appears to be distant patient denies any alcohol use but will follow. ADHD. Appears stable no treatment at this time. Obstructive sleep apnea. Was reviewing notes. It does not appear as if he has been actively treated with CPAP but will need to follow. GI prophylaxis should be low risk but will follow. DVT prophylaxis. Lovenox. Will treat with active dose if worsens. Code status. At this time full code but patient does not want long-term treatment and will continue to discuss he is somewhat unsure what he truly wants and will rediscuss tomorrow. Disposition. Clearly will be here more than 2 days. I expect a long-term treatment course but will have to follow and see seriousness of a patient his age was COPD discussed. Time Spent With Patient Critical Care time: I spent a total of [] minutes of critical care time on this patient's care today; this time is exclusive of procedural time. Quality VTE Deep Vein Thrombosis/Pulmonary Embolism Present on Admission: No
[2021-07-04 15:25] LABS: D Dimer 407 ng/mL (<230)
[2021-07-04] MEDS: ENOXAPARIN 40 MG/0.4 ML SYRINGE SUBCUT (16:52)
[2021-07-04] MEDS: ACETAMINOPHEN 325 MG TABLET 650 MG PO (16:52)
--- NOTE | 2021-07-04 21:38 | RT ---
At 2040, I assessed pt. Pt is on 1 LPM NC, SpO2 97%, RR 20, BS clear/diminished. Pt has hx of COPD and takes Albuterol MDI: 2 puffs and Symbicort: 2 puffs BID at home. Pt has MDIs at bedside and prefers to use MDIs instead of replacement SVNs. RN aware. Pt has hx of SHAWN and does not tolerate CPAP. I asked pt if he would like to use hospital CPAP machine while here and pt refused it, prefers to use NC instead.
[2021-07-05] VITALS (10 sets, daily range): BP systolic 124–155; BP diastolic 63–74; PULSE 73–84; RESP 16–20; TEMP 36.1–36.7; O2SAT 94–99
[2021-07-05 05:35] LABS: Add Manual Diff / Slide Review NO; Basophils Absolute Auto 0 /uL (0-100); Basophils Percent Auto 0.1 % (0-2); Eosinophils Absolute Auto 0 /uL (0-450); Hematocrit 37.5 % (41-53); Hemoglobin 13.2 g/dL (13.5-17.5); Lymphocytes Absolute Auto 900 /uL (1100-4500); Lymphocytes Percent Auto 16.1 % (25-40); Mean Corpuscular HGB Conc 35.2 % (30-36); Mean Corpuscular Hemoglobin 31.8 PG (26-34); Mean Corpuscular Volume 90.5 fL (80-100); Monocytes Absolute Auto 800 /uL (0-900); Monocytes Percent Auto 13.2 % (3-14); Neutrophils Absolute Auto 4100 /uL (1500-7000); Neutrophils Percent Auto 70.6 % (50-75); Platelet Count 165 X10^3/uL (150-400); Red Blood Cell Count 4.14 X10^6/uL (4.5-5.9); Red Cell Distribution Width 13.6 % (11.6-14.8); White Blood Cell Count 5.9 X10^3/uL (4.5-11.0)
[2021-07-05 05:45] LABS: Alanine Aminotransferase 42 IU/L (<50); Albumin 3.5 g/dL (3.5-5.0); Albumin Globulin Ratio 1.2 (1.0-2.8); Alkaline Phosphatase 88 U/L (38-126); Aspartate Aminotransferase 69 IU/L (17-59); BUN Creatinine Ratio 25.2 (6-22); Bilirubin Total 0.7 mg/dL (0.2-1.3); Blood Urea Nitrogen 26 mg/dL (9-20); Calcium 9.3 mg/dL (8.4-10.2); Carbon Dioxide 24 mmol/L (22-32); Chloride 110 mmol/L (98-107); Estimated Glomerular Filt Rate > 60.0 mL/min (>60); Glucose 168 mg/dL (80-110); HEMOLYSIS < 15 (0-50); Potassium 3.8 mmol/L (3.4-5.1); Sodium 139 mmol/L (137-145); Total Protein 6.5 g/dL (6.3-8.2)
[2021-07-05 05:48] LABS: C-Reactive Protein Quant 6.9 mg/dL (<1.0)
[2021-07-05] MEDS: ACETAMINOPHEN 325 MG TABLET 650 MG PO (06:35)
[2021-07-05] MEDS: PANTOPRAZOLE DR 20 MG TABLET PO (06:35)
[2021-07-05] MEDS: DEXAMETHASONE 10 MG/ML VIAL 6 MG IV (08:05)
[2021-07-05] MEDS: TAMSULOSIN 0.4 MG CAPSULE PO (08:05)
[2021-07-05] MEDS: ENOXAPARIN 40 MG/0.4 ML SYRINGE SUBCUT (08:06)
[2021-07-05] MEDS: ASPIRIN EC 81 MG TABLET PO (08:06)
[2021-07-05] MEDS: AMLODIPINE 5 MG TABLET 10 MG PO (08:09)
[2021-07-05] MEDS: lisinopriL 20 MG TABLET 40 MG PO (08:09)
[2021-07-05] MEDS: REMDESIVIR 100 MG in SODIUM CHLORIDE 0.9% 230 ML 250 ML IV (08:10)
--- NOTE | 2021-07-05 11:55 | P.PN_ITS ---
Subjective Subjective Date Patient Seen: 07/05/21 Time Patient Seen: 11:58 Interval history: Patient seen in follow-up of COVID pneumonia and respiratory failure. COPD. Overall feels to be doing well. Feeling like he feels a little bit better today. Not enjoying the nebulizers and will like to discontinue those. Otherwise no new changes or complaints. No chest pain no shortness of breath. Got very tired is getting up to will order the bathroom. Had urinary retention. Orr was placed last night. Seems to be doing pretty well today. Feels like it has helped. Has had a history of BPH in the past. Discontinued his Flomax. Exam Vital Signs (past 8 hours): - 07/05/21 08:00 07/05/21 08:09 Temperature 97.0 F L Pulse Rate 74 74 Respiratory Rate 18 Blood Pressure 131/64 131/64 Pulse Oximetry 99 Oxygen Delivery Method Nasal Cannula Oxygen Flow Rate 1 Narrative Exam Narrative: Alert smiling male much less fatigued in no acute distress. HEENT exam mucous membranes moist. Neck supple without adenopathy lungs with mild rhonchi but otherwise moving air well. No retractions. Heart distant but otherwise unremarkable. Abdomen is benign. Extremities without cyanosis clubbing edema. Abdomen soft positive bowel sounds nontender Objective Labs Result Diagrams: 07/05/21 05:15 07/05/21 05:15 Labs: Laboratory Results - last 24 hr 07/04/21 07/05/21 07/05/21 14:35 05:15 05:15 WBC 5.9 RBC 4.14 L Hgb 13.2 L Hct 37.5 L MCV 90.5 MCH 31.8 MCHC 35.2 RDW 13.6 Plt Count 165 Neut % (Auto) 70.6 Lymph % (Auto) 16.1 L [place] % (Auto) 13.2 Eos % (Auto) 0.0 L Baso % (Auto) 0.1 Neut # (Auto) 4100 Lymph # (Auto) 900 L [place] # (Auto) 800 Eos # (Auto) 0 Baso # (Auto) 0 D-Dimer 407 H Sodium 139 Potassium 3.8 Chloride 110 H Carbon Dioxide 24 BUN 26 H Creatinine 1.03 Estimated GFR > 60.0 BUN/Creatinine Ratio 25.2 H Glucose 168 H Calcium 9.3 Total Bilirubin 0.7 AST 69 H ALT 42 Alkaline Phosphatase 88 C-Reactive Protein Total Protein 6.5 Albumin 3.5 Globulin 3.0 Albumin/Globulin Ratio 1.2 07/05/21 05:15 WBC RBC Hgb Hct MCV MCH MCHC RDW Plt Count Neut % (Auto) Lymph % (Auto) [place] % (Auto) Eos % (Auto) Baso % (Auto) Neut # (Auto) Lymph # (Auto) [place] # (Auto) Eos # (Auto) Baso # (Auto) D-Dimer Sodium Potassium Chloride Carbon Dioxide BUN Creatinine Estimated GFR BUN/Creatinine Ratio Glucose Calcium Total Bilirubin AST ALT Alkaline Phosphatase C-Reactive Protein 6.9 H Total Protein Albumin Globulin Albumin/Globulin Ratio [facility] Medical History ADHD (attention deficit hyperactivity disorder) (1945) Alcohol abuse (1961) Arthritis (1945) Cataract (2004) Chicken pox (1950) Chronic back pain (1972) COPD (chronic obstructive pulmonary disease) (2016) Excessive daytime sleepiness Hearing loss (1994) History of cerebellar stroke Hypertension (2016) Measles (1948) Mumps (1951) Obstructive sleep apnea syndrome Prediabetes Recurrent sinusitis (1994) Rheumatic fever (1961) Tinnitus (1945) Vertigo (2016) Surgical History Anesthesia History of cataract removal with insertion of prosthetic lens (06/24/17) History of cataract removal with insertion of prosthetic lens (07/06/17) Family History Father Heart disease Hypertension Mental health problem Stroke Mother Hypertension Mental health problem Alzheimer's disease Sister Age: 70 Fibromyalgia Grandfather Alzheimer's disease Grandmother No problems noted. 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 Actually seems to be stable. Down to 1 L. Certainly neck and changes any time given the nature of COVID but at this point he seems to be doing well. Looks slightly better today. Exam was unchanged really. Will continue O2 support and will follow. Patient very short of breath and he was getting up to go to the bathroom. Will have to see how it goes over the next few days. Acute COVID pneumonia. Currently on appropriate medications for status. Seems slightly better. Will keep our fingers crossed that things unchanged. Labs are trending slightly up but we will see how that goes. Re-evaluate a.m.. No change in current treatment needed. Acute urinary retention. Feeling better now. Hopefully will be able to discontinue Orr in the next few days. Will place patient back on his Flomax and will follow. COPD. Seems to be stable at this time I do not think this is bacterial. Seems to be doing well. Would consider alternative treatment course depending on how things go. But at this point do not think we need to change higher dose steroids on dexamethasone and will follow. Will switch back to his usual inhalers and see how he is doing. History of alcohol abuse. Seems to be doing well. No evidence of withdrawal or change. Obstructive sleep apnea. Will need to follow up with usual treatment as outpatient. GI prophylaxis stable. DVT prophylaxis on Lovenox. I do not believe we need full dose at this time but will follow. Code status. Rediscussed. Full at this time. Does not want to be on long-term intubation but would like to at least try. He understands the risks. No change. Disposition. Will be years nausea needs. Unclear how long that will be. Certainly is a variable course but is improved slightly today and hopefully we will be continuing to improve and will be discharged later this week. Time Spent With Patient Critical Care time: I spent a total of [] minutes of critical care time on this patient's care today; this time is exclusive of procedural time. Quality VTE Deep Vein Thrombosis/Pulmonary Embolism Present on Admission: No
--- NOTE | 2021-07-05 13:31 | CM.DANOTE ---
DCP Assessment: Patient is a 76 yr old male who was admitted for COPD exacerbation and COVID. Patient is testing Covid positive and is unvaccinated. Patient is currently between 1 and 2 liters of O2 per NC. Cm called and spoke with the patient over the phone. CM was not able to meet patient in person due to Covid + status. Patient was alert and oriented x4 during Cm conversation. Patient currently lives in [place] in a single level home with his 27 yr old grandson. Patients daughter in law lives next door on one side and his sister Caridad lives next door on the other side. patient states he is independent with all ADLs and drives at baseline. Patient states he has a cane at home but does not need to use it on a regular basis. I: medicare and [place] Plan: DC home with family with possible need for oxygen to be determined based on course of treatment... No identified DC planning needs noted at this time. CM department will follow to assist with any needs that may arise. Jeanie Mcdaniel RN Case Manger Discharge Planning/Care Management Discharge Assessment Start: 07/05/21 12:56 Freq: Status: Active Protocol: Document 07/05/21 12:56 HS (Rec: 07/05/21 13:15 HS [id number]) Discharge Planning Assessment Assigned Operations Associate Jeanie Mcdaniel RNtin tie machine operator automatic DPOA/Assigned Designee Name Sister Caridad Contact Information [phone] Advance Directives? No History Provided By Patient Prior Living Arrangements House Household Members family Comment Grandson 27 yr old. Type of transporation used prior to Drives own vehicle admit Independent with ADL's Yes Is patient alert and oriented? Yes Caregiver for Another No DME Already Rented / Owned Cane Comment may need home O2 - Barriers to Discharge No Discharge Plan Home Referrals Initiated None needed Whiteboard Updated in Patient Room with No name and ext. # of Operations Associate Review Status In Process Next Review Type Continued Stay Review
[2021-07-05 13:45] LABS: D Dimer 523 ng/mL (<230)
[2021-07-05 14:21] LABS: Ferritin 475 ng/mL (18-464)
[2021-07-06] VITALS (11 sets, daily range): BP systolic 124–164; BP diastolic 66–85; PULSE 70–93; RESP 14–20; TEMP 36.3–36.7; O2SAT 95–98
[2021-07-06] MEDS: ACETAMINOPHEN 325 MG TABLET 650 MG PO ×3 (05:32→18:31)
[2021-07-06] MEDS: PANTOPRAZOLE DR 20 MG TABLET PO (05:32)
[2021-07-06 06:23] LABS: C-Reactive Protein Quant 3.9 mg/dL (<1.0)
--- NOTE | 2021-07-06 07:09 | P.PN_ITS ---
Subjective Subjective Date Patient Seen: 07/06/21 Time Patient Seen: 08:00 Interval history: The pt reports feeling improved from yesterday. He is happy to have remained on room air for nearly 24 hours now. He denies any chest pain. He continues to have mild SOB. He states that he feels extremely weak, and is very nervous about trying to move out of bed. He continues to cough, and states this is quite painful. The pt wants his cough to be completely gone before he goes home. Exam Vital Signs (past 8 hours): - 07/06/21 00:20 07/06/21 00:45 07/06/21 04:30 Temperature 97.4 F L 98.0 F Pulse Rate 76 79 80 Respiratory Rate 17 15 14 Blood Pressure 126/70 146/73 H Pulse Oximetry 95 98 98 Oxygen Delivery Method Room Air Oxygen Flow Rate 0 Narrative Exam Narrative: Gen: NAD, sitting comfortably in bed, speaking easily in complete sentences CV: RRR, grade 2/6 systolic murmur Resp: clear to auscultation bilaterally, no wheezes, good air movement Objective Labs Result Diagrams: 07/05/21 05:15 07/05/21 05:15 Labs: Laboratory Results - last 24 hr 07/05/21 07/05/21 07/06/21 13:18 13:18 05:30 D-Dimer 523 H Ferritin 475 H C-Reactive Protein 3.9 H PFSH Medical History ADHD (attention deficit hyperactivity disorder) (1946) Alcohol abuse (1961) Arthritis (194) Cataract (2004) Chicken pox (1950) Chronic back pain (1972) COPD (chronic obstructive pulmonary disease) (2016) Excessive daytime sleepiness Hearing loss (1994) History of cerebellar stroke Hypertension (2016) Measles (1949) Mumps (1951) Obstructive sleep apnea syndrome Prediabetes Recurrent sinusitis (1994) Rheumatic fever (1961) Tinnitus (1945) Vertigo (2016) Surgical History Anesthesia History of cataract removal with insertion of prosthetic lens (06/24/17) History of cataract removal with insertion of prosthetic lens (07/06/17) Family History Father Heart disease Hypertension Mental health problem Stroke Mother Hypertension Mental health problem Alzheimer's disease Sister Age: 70 Fibromyalgia Grandfather Alzheimer's disease Grandmother No problems noted. 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 seatbelt use: always water heater temp set < 120 deg: Yes working smoke detector in home: Yes fire extinguisher in home: No carbon monox detector in home: Yes firearms in home: Yes Smoking Status: Former smoker alcohol intake: former during the past year weight has: remained stable well-balanced diet: daily or most days daily servings fruits/ve-1 caffeine: Yes eating out: 4 or more times/week Type(s) of exercise: other frequency: 3-4 times per week duration: > 90 minutes/day Assessment & Plan Assessment & Plan narrative: Pt is a 76yo man with COPD, pre-diabetes, HTN, and hx of CVA who presented with worsening SOB and generally not feeling well. Found to be hypoxic requiring oxygen, and tested positive for COVID in the ED. Pt is high risk due to his baseline COPD. 1. Acute respiratory failure secondary to COVID pneumonia: Stable on room air currently. Was able to talk and maintain saturations at 98%. - Continue Dexamethasone and Remdesivir for now - Oxygen support as needed - Continue supportive care - PT/OT referral to evaluate weakness 2. Acute urinary retention: Likely secondary to pt being off Flomax - Trial removal of messer today - If recurrent retention, will replace and keep messer in and pursue outpatient Urology f/u 3. COPD: Stable. No evidence exacerbation - Continue home inhalers 4. History of alcohol abuse: No evidence of alcohol withdrawal 5. SHAWN: Stable DVD ppx: Lovenox Diet: Normal Code: Full Dispo: Pending continued stability off oxygen, PT/OT eval for safe discharge ho me. Discussed with the pt that his cough will not likely be resolved at the time of d/c, but will hopefully be improved. Hopefully safe for d/c home tomorrow, but will await PT/OT recs regarding this. Should be medically safe for d/c tomorrow. Time Spent With Patient Critical Care time: I spent a total of [] minutes of critical care time on this patient's care today; this time is exclusive of procedural time. Quality VTE Deep Vein Thrombosis/Pulmonary Embolism Present on Admission: No
[2021-07-06] MEDS: DEXAMETHASONE 10 MG/ML VIAL 6 MG IV (08:22)
[2021-07-06] MEDS: AMLODIPINE 5 MG TABLET 10 MG PO (08:22)
[2021-07-06] MEDS: ASPIRIN EC 81 MG TABLET PO (08:23)
[2021-07-06] MEDS: ENOXAPARIN 40 MG/0.4 ML SYRINGE SUBCUT (08:23)
[2021-07-06] MEDS: TAMSULOSIN 0.4 MG CAPSULE PO (08:23)
[2021-07-06] MEDS: lisinopriL 20 MG TABLET 40 MG PO (08:24)
[2021-07-06] MEDS: REMDESIVIR 100 MG in SODIUM CHLORIDE 0.9% 230 ML 250 ML IV (08:24)
[2021-07-06] MEDS: BUDESONIDE 0.5 MG/2 ML NEB INH (08:49)
[2021-07-06] MEDS: DOCUSATE 100 MG CAPSULE PO ×2 (10:10→22:08)
--- NOTE | 2021-07-06 10:35 | PT.IIE ---
Current Diagnoses COVID-19 (07/04/21) Surgical History (Last Reviewed 07/04/21 @ 12:40 by Kelechi Nolan MD) Anesthesia History of cataract removal with insertion of prosthetic lens (06/24/17) History of cataract removal with insertion of prosthetic lens (07/06/17) Medical History (Last Reviewed 07/04/21 @ 12:40 by Kelechi Nolan MD) ADHD (attention deficit hyperactivity disorder) (194) Alcohol abuse (1961) Arthritis (194) Cataract (2004) Chicken pox (1950) Chronic back pain (1972) COPD (chronic obstructive pulmonary disease) (2016) Excessive daytime sleepiness Hearing loss (1994) History of cerebellar stroke Hypertension (2016) Measles (194) Mumps (1951) Obstructive sleep apnea syndrome Prediabetes Recurrent sinusitis (1994) Rheumatic fever (1961) Tinnitus (1945) Vertigo (2016) Physical Therapy Inpatient Evaluation/Re-Eval M1 PT/OT-IP Prior Functional Status Start: 07/06/21 08:55 Freq: NEEDED Status: Active Protocol: Document 07/06/21 10:35 AW (Rec: 07/06/21 11:02 AW [id number]) Medical Review Prior Functional Status Medical History Reviewed Yes Communication Pt is able to make his needs known. He presents with some lethargy today but communication is not impaired. Mobility and Gait Pt reports independent mobility without assistive device. He admits to a limit of ~200 feet before needing a rest due to fatigue and SOB. Activities of Daily Living and IADL's Independent. Social History Household Members family Living Arrangements House Number of Floors (Floors) One Floor Number of Stairs To Enter/Railing? 1 ESTRADA no rail Home Environment Standard Height Toilet,Tub/ Shower Doors Home Equipment Straight Cane,Raised Toilet Seat w/Armrests,Tub Transfer Bench,Grab Bars In Shower Employment Status Retired Additional Social History Comment Pt states he tends to sleep in his easy chair. Pt lives with his 27 yo grandson who is not reliable or able to help in any meaningful way. Pt's [id number] lives next door. She had COVID recently but has now tested negative twice and is preparing to return to work. Pt's sister lives next door on the other side; she is now COVID (+). M2 PT-IP Current Condition Start: 07/06/21 08:55 Freq: NEEDED Status: Active Protocol: Document 07/06/21 10:35 AW (Rec: 07/06/21 11:02 AW [id number]) Physical Therapy Current Condition Current Condition Evaluation Date 07/06/21 Treatment Diagnosis COPD exacerbation; COVID (+); hypoxia; dizziness; impaired mobility Onset Date 07/03/21 M3 PT-IP Subjective Start: 07/06/21 08:55 Freq: NEEDED Status: Active Protocol: Document 07/06/21 10:35 AW (Rec: 07/06/21 11:02 AW [id number]) Subjective Physical Therapy Visit Type Type Initial Evaluation Visit Start Time 09:53 Visit Stop Time 10:35 Total Visit Minutes 42 Notes SPT Elissa was present and participated in assessment and treatment. Number of DIRECTOR OF STRATEGIC SOURCING Visits 0 Physical Therapy Visit Comments Patient Comments I'm too weak to do much and my cough is frustratingly unproductive. Patient Goals Pt is open to SNF rehab if indicated. Therapy Pain Assessment Pain When Pain Assessed During Mobility Pain Present Pain Present Pain Reported Location Generalized Scale Used back pain and generalized; not quantified M4 PT-IP Mobility and Gait Start: 07/06/21 08:55 Freq: NEEDED Status: Active Protocol: Document 07/06/21 10:35 AW (Rec: 07/06/21 11:53 AW [id number]) PT-Bed Mobility Assessment Supine to Sit Supine to Sit Minimal Assistance,1 Person Assistance,Head of Bed Elevated,Bedrails Sit to Supine Sit to Supine Minimal Assistance,1 Person Assistance Scooting Scooting to Edge of Bed Contact Guard Assistance PT-Transfer Assessment Sit to and From Stand Sit to and from Stand Minimal Assistance,1 Person Assistance,Use of Upper Extremities Equipment Transfer Assistive Device Gait Belt,Front Wheeled Walker Orthotic/Prosthetic Devices or Brace: No Comments Mobility Comments Pt was lying in the bed as PT and SPT arrived. BP 151/69 HR 91. He complained of cough which was causing fatigue. SpO2 was stable 94% on room air as pt sat up on the left EOB min A x 1. Pt complained of dizziness which he states he has had since his stroke last year but he believes is currently worse than usual. BP was 141/50 HR 100. SpO2 remained 94% room air. He sat an extended period of time, participating in seated exercises before standing with FWW min A x 1. Pt reported increased dizziness and pt needed to sit. He returned to supine min A x 1. Pt was positioned with call light and tray table in reach. Gait Assessment Comments Gait Comments Pt feels too weak to attempt gait today. PT-Balance Assessment Sitting Balance and Reactions Static Sitting Balance Ability Good Dynamic Sitting Balance Ability Fair Standing Balance and Reactions Static Standing Balance Ability Fair Device Used FWW M5 PT-IP Objective Assessments Start: 07/06/21 08:55 Freq: NEEDED Status: Active Protocol: Document 07/06/21 10:35 JG (Rec: 07/06/21 10:58 JG [id number]) Orientation Orientation/Cognition Level of Alertness Lethargic Orientation Name,Place,Situation Language Function Ability No Deficits Noted Safety Awareness Understands Safety Issues Memory Description No Deficits Noted Comments Pt's self-reported fatigue mildly decreased response time and amount. Gross Range of Motion Upper Extremity ROM Assessment Bilaterally Impaired Impairments L>R likely due to CVA in 2019 Lower Extremity ROM Assessment Bilaterally Impaired Impairments L>R likely due to CVA in 2019 Strength Upper Extremity Strength Assessment Left Impaired Lower Extremity Strength Assessment Bilaterally Impaired Comments Strength Comments Strength was decreased generally from 3+/5 to 4/5. Pt was shaky throughout movement and shakes increased during MMT. Pt reports shakes are new . Sensation Assessment Sensation Gross Sensation Left UE Impaired Light Touch Impaired Proprioception (Position) Intact Sensation Description Numbness Comments Sensation Comments L hand most impaired, L LE somewhat impaired. From CVA in 2019. L LE sensation not impaired. Muscle Tone Muscle Tone WNL No Comments Muscle Tone Comments Decreased muscle tone generally M6 PT-IP Treatment Start: 07/06/21 08:55 Freq: NEEDED Status: Active Protocol: Document 07/06/21 10:35 AW (Rec: 07/06/21 11:02 AW [id number]) Physical Therapy Treatment Education Education Provided Safety M7 PT-IP Assessment and Plan Start: 07/06/21 08:55 Freq: NEEDED Status: Active Protocol: Document 07/06/21 10:35 AW (Rec: 07/06/21 11:53 AW [id number]) PT Summary Assessment and Plan Potential Rehabilitation Potential Good Status of Condition at Evaluation Evolving Summary Impairments Pain,Strength,Balance, Sensation,Bed Mobility, Transfers,Gait Assessment Summary Charbel is a 76 yo man admitted to the hospital with COPD exacerbation and COVID (+ ). He is independent at baseline. He usually has family support at home but his daughter in law is returning to work post-COVID and his sister is now COVID (+) herself. Pt has increased dizziness, very limited activity tolerance, and is requiring min assist with bed mobility and sit to stand at this time. BP was stable throughout this encounter and no spontaneous nystagmus was observed. Depending on progress, pt would benefit from SNF rehab to improve strength and mobility independence. Goals Bed Mobility Goal Standby Assistance Transfer Goal Standby Assistance,Front Wheeled Walker Gait Goal Standby Assistance,Front Wheel Walker Gait Distance 150 Other Goals - up/down 1 step without rail SBA - improve gait and transfers to SBA with SPC or no AD Days to Meet Goals 10 Frequency of Treatment Frequency Of Treatment Once a Day Treatment Plan Physical Therapy Treatment Plan Bed Mobility Training,Transfer Training,Gait Training, Therapeutic Exercise,Balance Retraining,Discharge Planning Other Recommendations and Next Treatment transfers Focus Precautions Other Precautions COVID (+) Recommendations To Nursing Amount of Assist Needed 1 Person Assist Discharge Recommendations PT Discharge Recommendations SNF Rehab Equipment Needed for Home Before FWW if going home and unsafe Discharge with SPC Transportation Needs at Discharge Private Vehicle,Wheelchair/ Cabulance
[2021-07-06] MEDS: BISACODYL 5 MG TABLET 10 MG PO (13:00)
--- NOTE | 2021-07-06 14:08 | CM.DPC ---
Addendum entered by Chey Echeverria R.N. 07/06/21 15:35: Referral was faxed over to [facility] in [place]. Their phone number is: [phone]. Called and asked for admissions. They mentioned that admissions lianain just walked out of the building, but can call back in the am. Her name is Reid. She does not have a voice mail, was recommended to call back at the main number and ask for her. Will contact her tomorrow. Original Note: DCP Cont: Spoke to Dr. Costello who stated, patient may need skilled rehab, looking at therapy notes, due to weakness. Called Clarissa at [facility], after speaking to patient over the phone. He indicated, I will need some type of rehab before going home, since I'm so weak. Let him know that [facility] is the only facility that has COVID patients, and that he would be updated. Clarissa at [facility] indicated, they do not have a COVID unit anymore. Asked her if she was familiar with any other skilled facilities that may be able to accept patients. She indicated that [facility], is their sister facility, and accept COVID patients. Racheal has called this facility, and will be sending the referral. Called Dr. Costello at her office and gave her an update that care management is going to attempt [place]. Let her know that she will be updated, for she indicated, patient should be medically ready to discharge tomorrow. P: DCP to work on getting referral over to [place]. If they can accept patient, patient may need a family member to take him due to cost. Chey Echeverria RN/Coding Technician
--- NOTE | 2021-07-06 14:12 | CM.DPNOTE ---
Faxed snf referral per Arelis to [facility], and they are no longer accepting Covid pos. pts. Clarissa referred us to their sister facility, [facility] in [place], fax [phone]. Racheal Juarez CM Asst.
--- NOTE | 2021-07-06 14:33 | OT.IPNOTE ---
Attempted to see pt for OT eval, pt states too tired and refused to get up at this time. To check on pt again tomorrow fro Ot mary.
[2021-07-06] MEDS: ATORVASTATIN 20 MG TABLET 80 MG PO (22:08)
[2021-07-07] MEDS: ACETAMINOPHEN 325 MG TABLET 650 MG PO ×3 (01:28→12:37)
[2021-07-07 03:30] VITALS: BP 152/74; PULSE 90; RESP 16; TEMP 36.6; O2SAT 96
[2021-07-07] MEDS: PANTOPRAZOLE DR 20 MG TABLET PO (06:41)
[2021-07-07 08:45] VITALS: BP 137/75; PULSE 88; RESP 16; TEMP 36.5; O2SAT 94
[2021-07-07] MEDS: REMDESIVIR 100 MG in SODIUM CHLORIDE 0.9% 230 ML 250 ML IV (09:12)
[2021-07-07 09:13] VITALS: BP 137/75
[2021-07-07] MEDS: ENOXAPARIN 40 MG/0.4 ML SYRINGE SUBCUT (09:13)
[2021-07-07] MEDS: ASPIRIN EC 81 MG TABLET PO (09:13)
[2021-07-07] MEDS: lisinopriL 20 MG TABLET 40 MG PO (09:13)
[2021-07-07] MEDS: DOCUSATE 100 MG CAPSULE PO (09:13)
[2021-07-07] MEDS: TAMSULOSIN 0.4 MG CAPSULE PO (09:14)
[2021-07-07] MEDS: DEXAMETHASONE 10 MG/ML VIAL 6 MG IV (09:14)
[2021-07-07] MEDS: AMLODIPINE 5 MG TABLET 10 MG PO (09:14)
[2021-07-07] MEDS: IBUPROFEN 600 MG TABLET PO (10:40)
[2021-07-07] MEDS: CODEINE/GUAIFENESIN LIQUID 5ML UDC 5 ML PO (10:41)
--- NOTE | 2021-07-07 10:56 | PT.IPTN ---
Current Diagnoses COVID-19 (07/04/21) Physical Therapy Treatment Note M2 PT-IP Current Condition Start: 07/06/21 08:55 Freq: NEEDED Status: Active Protocol: Document 07/06/21 10:35 AW (Rec: 07/06/21 11:02 AW [id number]) Physical Therapy Current Condition Current Condition Evaluation Date 07/06/21 Treatment Diagnosis COPD exacerbation; COVID (+); hypoxia; dizziness; impaired mobility Onset Date 07/03/21 M3 PT-IP Subjective Start: 07/06/21 08:55 Freq: NEEDED Status: Active Protocol: Document 07/07/21 10:31 KS (Rec: 07/07/21 11:46 KS [id number]) Subjective Physical Therapy Visit Type Type Treatment Note Visit Start Time 10:31 Visit Stop Time 10:56 Total Visit Minutes 25 Number of EDUCATIONAL SPECIALIST Visits 1 Physical Therapy Visit Comments Patient Comments pt agreeable to working w/ therapy. Patient Goals Pt is wanting to go to SNF rehab. M4 PT-IP Mobility and Gait Start: 07/06/21 08:55 Freq: NEEDED Status: Active Protocol: Document 07/07/21 10:31 KS (Rec: 07/07/21 11:46 KS [id number]) PT-Bed Mobility Assessment Sit to Supine Sit to Supine Contact Guard Assistance,1 Person Assistance,Head of Bed Elevated,Bedrails Scooting Scooting to Edge of Bed Contact Guard Assistance PT-Transfer Assessment Sit to and From Stand Sit to and from Stand Minimal Assistance,1 Person Assistance,Use of Upper Extremities Equipment Transfer Assistive Device Gait Belt,Front Wheeled Walker Orthotic/Prosthetic Devices or Brace: No Transfers Transfer Destination Bed Transfer Ability Level of Assist Minimal Assistance,1 Person Assistance,Use of Upper Extremities Comments Mobility Comments Pt in bed upon arrival from therapy, O2 94% on RA. Pt sup< >sit w/ HOB elevated and use of bed rails CGA and O2 decreased tp 91% on RA. Pt took ~3 min to recover to 95% and then was able t scoot EOB CGA and sit<>stand w/ FWW and Min A. Pts O2 decreased to 91% again after standing, but while standing increased to 93 %. Pt reported fatigue and requested to sit back down. Pt took additional 3-4 min rest break, able to maintain seated balance EOB however w/ stooped posture. O2 increased to 95% on RA, pt sit<>stand Min A w/ FWW and was able to perform [address], O2 decreased to 91% and pt stand<>sit EOB for final rest break of 4 min, O2 incrased to 96%. Pt performed third sit<>stand w/ FWW Min A and took 3 steps forward and backwards and then performed additional [address] w/ O2 decrease to 92 %. Pt stand<>sit EOB and O2 increased to 96-97% on RA within 2 min. OT entered room and pt left w/ OT in room and all needs in reach. Gait Assessment Gait Gait Assistance Required: Minimum Assistance,1 Person Assist Distance (Feet) 3 Assistive Devices Assistive Device Gait Belt,Front Wheeled Walker Gait Deviations General Gait Pattern Decreased Stride Length, Decreased Feet Clearance, Flexed Trunk Factors Limiting Gait Function Factors Limiting Gait Function Decreased Activity Tolerance, Decreased Strength,Poor Balance,Respiratory Distress Comments Gait Comments Pt able to take 3 steps forward and 3 steps back as well as 2x [address] w/ FWW Min A. Pt had quick approach to fatigue and required seated rest breaks of 3-4 min between standing and marching in place. PT-Balance Assessment Sitting Balance and Reactions Static Sitting Balance Ability Good Dynamic Sitting Balance Ability Fair Standing Balance and Reactions Static Standing Balance Ability Fair Device Used FWW M5 PT-IP Objective Assessments Start: 07/06/21 08:55 Freq: NEEDED Status: Active Protocol: Document 07/06/21 10:35 JG (Rec: 07/06/21 10:58 JG [id number]) Orientation Orientation/Cognition Level of Alertness Lethargic Orientation Name,Place,Situation Language Function Ability No Deficits Noted Safety Awareness Understands Safety Issues Memory Description No Deficits Noted Comments Pt's self-reported fatigue mildly decreased response time and amount. Gross Range of Motion Upper Extremity ROM Assessment Bilaterally Impaired Impairments L>R likely due to CVA in 2019 Lower Extremity ROM Assessment Bilaterally Impaired Impairments L>R likely due to CVA in 2019 Strength Upper Extremity Strength Assessment Left Impaired Lower Extremity Strength Assessment Bilaterally Impaired Comments Strength Comments Strength was decreased generally from 3+/5 to 4/5. Pt was shaky throughout movement and shakes increased during MMT. Pt reports shakes are new . Sensation Assessment Sensation Gross Sensation Left UE Impaired Light Touch Impaired Proprioception (Position) Intact Sensation Description Numbness Comments Sensation Comments L hand most impaired, L LE somewhat impaired. From CVA in 2020. L LE sensation not impaired. Muscle Tone Muscle Tone WNL No Comments Muscle Tone Comments Decreased muscle tone generally M6 PT-IP Treatment Start: 07/06/21 08:55 Freq: NEEDED Status: Active Protocol: Document 07/07/21 10:31 KS (Rec: 07/07/21 11:46 KS [id number]) Physical Therapy Treatment Education Education Provided Safety M7 PT-IP Assessment and Plan Start: 07/06/21 08:55 Freq: NEEDED Status: Active Protocol: Document 07/07/21 10:31 KS (Rec: 07/07/21 11:46 KS [id number]) PT Summary Assessment and Plan Potential Rehabilitation Potential Good Status of Condition at Evaluation Evolving Summary Impairments Pain,Strength,Balance, Sensation,Bed Mobility, Transfers,Gait Progress Towards Goals Slow Progress due to Medical Issues,Slow Progress due to Activity Tolerance Assessment Summary Pt able to perform bed mobility CGA and sit<>stand Min A w/ FWW. He requires increased time to complete tasks due to SOB, dizziness, and fatigue. He was able to tolerate 3x sit<>stand w/ FWW Min A and 2x30 second bouts of marching in place as well as 3 steps forward and backward w / FWW. He is willing to try, but requires rest breaks to recover O2 and rest due to weakness. Pt is increased fall risk due to weakness and is unsafe to return home at this time. He will require SNF to improve strength, tolerance for activity, and functional mobility independence. Goals Bed Mobility Goal Standby Assistance Transfer Goal Standby Assistance,Front Wheeled Walker Gait Goal Standby Assistance,Front Wheel Walker Gait Distance 150 Other Goals - up/down 1 step without rail SBA - improve gait and transfers to SBA with SPC or no AD Days to Meet Goals 10 Frequency of Treatment Frequency Of Treatment Once a Day Treatment Plan Physical Therapy Treatment Plan Bed Mobility Training,Transfer Training,Gait Training, Therapeutic Exercise,Balance Retraining,Discharge Planning Other Recommendations and Next Treatment transfers Focus Precautions Other Precautions COVID (+) Recommendations To Nursing Amount of Assist Needed 1 Person Assist Discharge Recommendations PT Discharge Recommendations SNF Rehab Equipment Needed for Home Before FWW if going home and unsafe Discharge with SPC Transportation Needs at Discharge Private Vehicle,Wheelchair/ Cabulance
--- NOTE | 2021-07-07 10:59 | P.PN_ITS ---
Subjective Subjective Date Patient Seen: 07/07/21 Time Patient Seen: 08:00 Interval history: The pt reports that he continues to feel very weak. He found it challenging to work with PT yesterday. He states that he pulls a muscle every time he coughs. He denies any SOB or chest pain. Exam Vital Signs (past 8 hours): - 07/07/21 03:30 07/07/21 08:45 07/07/21 09:13 Temperature 98 F 97.7 F Pulse Rate 90 88 Respiratory Rate 16 16 Blood Pressure 152/74 H 137/75 137/75 Pulse Oximetry 96 94 Oxygen Delivery Method Room Air Oxygen Flow Rate 0 Narrative Exam Narrative: Gen:? NAD, sitting comfortably in bed, speaking easily in complete sentences CV:? RRR, grade 2/6 systolic murmur Resp:? clear to auscultation bilaterally, no wheezes, good air movement Ext: no edema Objective Labs Result Diagrams: 07/05/21 05:15 07/05/21 05:15 [facility] Medical History ADHD (attention deficit hyperactivity disorder) (1946) Alcohol abuse (1961) Arthritis (1945) Cataract (2004) Chicken pox (1950) Chronic back pain (1972) COPD (chronic obstructive pulmonary disease) (2016) Excessive daytime sleepiness Hearing loss (1994) History of cerebellar stroke Hypertension (2016) Measles (1949) Mumps (1951) Obstructive sleep apnea syndrome Prediabetes Recurrent sinusitis (1994) Rheumatic fever (1961) Tinnitus (1945) Vertigo (2016) Surgical History Anesthesia History of cataract removal with insertion of prosthetic lens (06/24/17) History of cataract removal with insertion of prosthetic lens (07/06/17) Family History Father Heart disease Hypertension Mental health problem Stroke Mother Hypertension Mental health problem Alzheimer's disease Sister Age: 70 Fibromyalgia Grandfather Alzheimer's disease Grandmother No problems noted. 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 seatbelt use: always water heater temp set < 120 deg: Yes working smoke detector in home: Yes fire extinguisher in home: No carbon monox detector in home: Yes firearms in home: Yes Smoking Status: Former smoker alcohol intake: former during the past year weight has: remained stable well-balanced diet: daily or most days daily servings fruits/ve-1 caffeine: Yes eating out: 4 or more times/week Type(s) of exercise: other frequency: 3-4 times per week duration: > 90 minutes/day Assessment & Plan Assessment & Plan narrative: Pt is a 76yo man with COPD, pre-diabetes, HTN, and hx of CVA who presented with worsening SOB and generally not feeling well.? Found to be hypoxic requiring oxygen, and tested positive for COVID in the ED.? Pt is high risk due to his baseline COPD. 1.? Acute respiratory failure secondary to COVID pneumonia:? Remains stable on room air. - Continue Dexamethasone and Remdesivir (Day 4) - Oxygen support as needed - Continue supportive care - PT/OT to continue working on strengthening with the pt - Cough suppressant prescribed today 2.? Acute urinary retention:? Likely secondary to pt being off Flomax. Messer out and pt was able to urinate. - If recurrent retention, will replace and keep messer in and pursue outpatient Urology f/u 3.? COPD:? Stable.? No evidence exacerbation - Continue home inhalers 4.? History of alcohol abuse:? No evidence of alcohol withdrawal 5.? SHAWN:? Stable 6. HTN: BP erratic. Discussed change in BP medications with the pt, but he does not want to adjust his home medications at all. - Continue home Amlodipine, Lisinopril DVD ppx:? Lovenox Diet:? Normal Code:? Full Dispo:? Pt is medically stable for discharge, however, need safe discharge plan. PT recommended SNF yesterday. Awaiting potential placement at facility in [place]. If this cannot work, pt may need to d/c home with home health - although this is not ideal - due to hospital space needs/issues. Time Spent With Patient Critical Care time: I spent a total of [] minutes of critical care time on this patient's care today; this time is exclusive of procedural time. Quality VTE Deep Vein Thrombosis/Pulmonary Embolism Present on Admission: No
--- NOTE | 2021-07-07 11:59 | CM.DPC ---
Addendum entered by Chey Echeverria R.N. 07/07/21 13:29: Dr. Costello came over and signed med sheets and BLS form. Faxed them over to [facility]. Called Reid in admissions and updated her. Faxed over med sheets, PASSR, DC Summary. BLS form completed and with chart. Have made copies of med sheets, PASSR, and BLS form for scanning. Addendum entered by Chey Echeverria R.N. 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 Let her know that as soon as the orders are signed, will fax them over to her. Updated nurse, Berenice, and gave her phone number for report. Original Note: DCP Cont: Called Reid in admissions at [facility], for had not yet heard back from her. Did speak to her. Reid reviewed, can accept patient today, even as late as 8:00pm if needed. Called patient in his room with LAURENCE Dorsey, as witness. Let him know that [facility] can accept him. He was reluctant, stated, would rather wait until tomorrow. Let him know that he is medically ready today. He stated, would be ok. Asked him if he has anyone to transport him, and he stated, he does not. Let him know that the only way to get him there is [facility], and may be a cost for him. He is aware. Did have technical support assistantRacheal, call a few other transportation options, such as [facility], but none of these transport COVID patients. Called Dr. Costello over at the clinic, and she will come over and do the orders. Have Reid's cell number of: [phone]. As soon as orders are completed, will fax them over to her. Completed PASSR. Updated nurseBerenice, as well. As soon as orders are completed, will set up transport. P: Will have Racheal technical support assistant, set up transport with [facility]. Chey Echeverria RN/Mechanical Assembly Technician
--- NOTE | 2021-07-07 12:06 | P.DS_ITS ---
History of Present Illness History of Present Illness Chief complaint: COPD Exacerbation Narrative: Patient is a 76-year-old male patient of Dr. Costello who has not been feeling well over the last week.? Patient was not really sure what was going on but felt as if things were not doing well.? He was having increasing shortness of breath and cough.? Seemed to be doing overall well up until 2 days ago when he began having increasingly shortness of breath.? Patient is non vaccinated.? He got to the point where he was is feeling like he could not agree and his shortness of breath continued to get worse and he called 911.? He has had no chest pain no nausea vomiting no burning with urination change in his urine change in his bowel function.? She had no edema.? He has otherwise been feeling well.? Very quiet man.? Patient was found to be quite hypoxic when EMS arrived was brought to the emergency room.? Apparently has a history of alcohol abuse but not actively drinking. Discharge Providers Provider Date of admission: 07/04/21 08:48 Discharge Date: 07/07/21 Primary care physician: Veda Costello MD Consults: 07/04/21 12:16 Consult to Discharge Planning Routine Comment: 07/06/21 08:19 Consult to Occupational Therapy Evaluate & Treat Comment: Physician Instructions: Evaluate and treat Consult to Physical Therapy Evaluate & Treat Comment: Physician Instructions: Evaluate and Treat Discharge provider: Veda Costello MD Summary Hospital Course Discharge Diagnosis: Acute respiratory failure secondary to COVID pneumonia Acute urinary retention COPD SHAWN HTN Hospital Course: The pt was admitted with acute respiratory failure due to COVID. He was started on Dexamethasone and Remdesivir. After being on oxygen support for around 24 hours, it was weaned off. The pt was stable of room air for more than 48hrs prior to d/c. He never showed signs of any COPD exacerbation. He did have acute urinary retention while in the hospital, thought to be due to self- discontinuation of his Flomax prior to presentation. A messer catheter was placed and remained in place for 24hrs. His Flomax was restarted. The pt was able to urinate when the catheter was removed. PT was consulted while the pt was in the hospital due to weakness. It was determined that discharge to SNF would be most appropriate to help with strengthening. Status at Discharge Cognitive/behavioral status at discharge: oriented Functional status at discharge: uses cane/walker Overall status at discharge: patient is progressing back to baseline Exam Vital Signs (past 8 hours): - 07/07/21 08:45 07/07/21 09:13 Temperature 97.7 F Pulse Rate 88 Respiratory Rate 16 Blood Pressure 137/75 137/75 Pulse Oximetry 94 Oxygen Delivery Method Room Air Oxygen Flow Rate 0 Narrative Exam Narrative: See progress note from today. Objective Labs Result Diagrams: 07/05/21 05:15 07/05/21 05:15 [facility] Medical History ADHD (attention deficit hyperactivity disorder) (194) Alcohol abuse (1961) Arthritis (194) Cataract (2004) Chicken pox (1950) Chronic back pain (1972) COPD (chronic obstructive pulmonary disease) (2016) Excessive daytime sleepiness Hearing loss (1994) History of cerebellar stroke Hypertension (2016) Measles (1948) Mumps (1951) Obstructive sleep apnea syndrome Prediabetes Recurrent sinusitis (1994) Rheumatic fever (1961) Tinnitus (1945) Vertigo (2016) Surgical History Anesthesia History of cataract removal with insertion of prosthetic lens (06/24/17) History of cataract removal with insertion of prosthetic lens (07/06/17) Family History Father Heart disease Hypertension Mental health problem Stroke Mother Hypertension Mental health problem Alzheimer's disease Sister Age: 70 Fibromyalgia Grandfather Alzheimer's disease Grandmother No problems noted. 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 Other facility: [facility] Discharge orders & Medications Prescriptions: New acetaminophen 325 mg Tablet 650 mg PO Q6HR Qty: 30 0RF bisacodyl 5 mg Tablet,Delayed Release (Dr/Ec) 10 mg PO BID PRN (Reason: Constipation) Qty: 30 0RF docusate sodium 100 mg Capsule 100 mg PO BID Qty: 30 0RF ibuprofen 600 mg Tablet 600 mg PO Q6HR PRN (Reason: Fever/Mild Pain (1-3)) Qty: 30 0RF Continued albuterol sulfate 90 mcg/actuation HFA aerosol inhaler 2 puff INHALATION Q4-6H PRN (Reason: shortness of breath or wheezing) Qty: 54 3RF budesonide-formoterol [Symbicort] 80-4.5 mcg/actuation HFA aerosol inhaler See Rx Instructions .ROUTE .COMPLEX Qty: 30.6 3RF Dose Instruction: USE 2 INHALATIONS ORALLY TWICE DAILY Rx Instructions: USE 2 INHALATIONS ORALLY TWICE DAILY amlodipine 10 mg tablet 10 mg PO DAILY Qty: 90 3RF tamsulosin 0.4 mg capsule 0.4 mg PO DAILY Qty: 90 1RF atorvastatin 80 mg tablet 80 mg PO BEDTIME Qty: 90 3RF Rx Instructions: due for annual exam in August 2021 acetaminophen 325 mg Tablet 650 mg PO Q6HR PRN (Reason: Fever/Mild Pain (1-3)) Qty: 30 0RF aspirin 81 mg Tablet,Delayed Release (Dr/Ec) 81 mg PO DAILY Qty: 30 0RF polyethylene glycol 3350 17 gram Powder In Packet 17 gm PO DAILY Qty: 30 0RF guaifenesin [Mucinex] 600 mg tablet extended release 12hr 600 mg PO BID PRN (Reason: Cough) Qty: 0 0RF Label Comments: 600 MG PO BID As Needed for Cough Saccharomyces boulardii [Florastor] 250 mg Capsule 250 mg PO DAILY 0RF lisinopril 20 mg tablet 40 mg PO DAILY 0RF Follow up/Referrals: Veda Costello MD [Primary Care Provider] - Diet/Activity/Treatments Diet: Diet as Tolerated and Regular Liquid consistency: Normal/Thin Food texture: Regular [facility] Rehabilitation [facility] Reason for rehabilitation: Recovery r/t decondition Rehab type: Physical therapy and Occupational therapy Discharge Data Primary Care Provider: Veda Costello VTE Deep Vein Thrombosis/Pulmonary Embolism Present on Admission: No
--- NOTE | 2021-07-07 12:15 | CM.DPNOTE ---
[facility] per [facility]rel[facility] for 1400 pickup to [facility]. Spoke to Corinne in [facility]. I did let them know pt. is Covid+ and needs O2. Racheal Juarez CM Asst.
--- NOTE | 2021-07-07 12:42 | OT.IP.EVAL ---
Current Diagnoses COVID-19 (07/04/21) Past Medical History (Last Reviewed 07/04/21 @ 12:40 by Kelechi Nolan MD) ADHD (attention deficit hyperactivity disorder) (194) Alcohol abuse (1961) Arthritis (194) Cataract (2004) Chicken pox (1950) Chronic back pain (1972) COPD (chronic obstructive pulmonary disease) (2016) Excessive daytime sleepiness Hearing loss (1994) History of cerebellar stroke Hypertension (2016) Measles (1949) Mumps (1951) Obstructive sleep apnea syndrome Prediabetes Recurrent sinusitis (1994) Rheumatic fever (1961) Tinnitus (1945) Vertigo (2016) Surgical History (Last Reviewed 07/04/21 @ 12:40 by Kelechi Nolan MD) Anesthesia History of cataract removal with insertion of prosthetic lens (06/24/17) History of cataract removal with insertion of prosthetic lens (07/06/17) Occupational Therapy Inpatient Evaluation/Re-Eval M1 PT/OT-IP Prior Functional Status Start: 07/06/21 08:55 Freq: NEEDED Status: Active Protocol: Document 07/07/21 10:50 [facility] (Rec: 07/07/21 12:42 [facility] [id number]) Medical Review Prior Functional Status Medical History Reviewed Yes Communication Pt is able to make his needs known. He presents with some lethargy today but communication is not impaired. Mobility and Gait Pt reports independent mobility without assistive device. He admits to a limit of ~200 feet before needing a rest due to fatigue and SOB. Activities of Daily Living and IADL's Independent for ADL's. His family assists with meals, IADl needs and help to set-up his medications. Pt states still drives. Social History Household Members family Living Arrangements House Number of Floors (Floors) One Floor Number of Stairs To Enter/Railing? 1 ESTRADA no rail Home Environment Standard Height Toilet,Tub/ Shower Doors Home Equipment Straight Cane,Raised Toilet Seat w/Armrests,Tub Transfer Bench,Grab Bars In Shower Employment Status Retired Additional Social History Comment Pt states he tends to sleep in his easy chair. Pt lives with his 27 yo grandson who is not reliable or able to help in any meaningful way. Pt's [id number] lives next door. She had COVID recently but has now tested negative twice and is preparing to return to work. Pt's sister lives next door on the other side; she is now COVID (+). M2 OT-IP Current Condition Start: 07/07/21 12:21 Freq: Status: Active Protocol: Document 07/07/21 10:50 [facility] (Rec: 07/07/21 12:42 [facility] [id number]) Occupational Therapy Current Condition Current Condition Evaluation Date 07/07/21 Treatment Diagnosis COPD exacerbation, COVID + Diagnosis Onset Date 07/04/21 M3 OT- IP Subjective and Pain Start: 07/07/21 12:21 Freq: Status: Active Protocol: Document 07/07/21 10:50 [facility] (Rec: 07/07/21 12:42 [facility] [id number]) OT- Subjective Occupational Therapy Visit Type Type Initial Evaluation Visit Start Time 10:50 Visit Stop Time 11:34 Total Visit Minutes 44 Occupational Therapy Visit Comments 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 Patient/Caregiver Goals Pt wanting to go to rehab. OT Pain Assessment Pain When Pain Assessed At Rest Pain Present Pain Present Denied Pain M4 OT- IP ADL's Start: 07/07/21 12:21 Freq: Status: Active Protocol: Document 07/07/21 10:50 [facility] (Rec: 07/07/21 12:42 [facility] [id number]) OT [id number] Comments OT Self-Feeding Comments Not at meal time. OT ADL-Grooming Comments OT Grooming Comments Pt too tired to do at this time. OT ADL-Oral Care Comments Oral Care Comments Not performed. OT ADL-Dressing General Eval Lower Body Dressing Ability Standby Assistance,Moderate Assistance Comments OT Dressing Comments Pt able to rosina/doff his socks with increased time and rest breaks and having to prop his foot on the side of the garbage can. Otherwise pt needing assist to help rosina clothing over his feet. OT ADL-Toileting General Evaluation Toileting Ability Moderate Assistance Areas Needing Assistance Perform Perineal Hygiene Comments OT Toileting Comments Green pad underneath pt soiled and had pt stand to assist to do hygiene with wash cloth. Pt not able to stand and reach at this same time and getting too tired and needing assist to wipe. OT ADL-Bathing Bathing Type Bathing Type Sponge Bath General Evaluation Bathing Ability Moderate Assistance Areas Needing Assistance Wash/Dry Back,Wash/Dry Perineal Area,Wash/Dry Lower Extremities Comments OT Bathing Comments Pt able to sit on the edge of the bed to do sponge bathing. M5 OT- IP IADL's Start: 07/07/21 12:21 Freq: Status: Active Protocol: Document 07/07/21 10:50 [facility] (Rec: 07/07/21 12:42 [facility] [id number]) OT-Instrumental Activities of Daily Living Medication Management Medication Management Caregiver Provides Supervision Medication Management Comments Pt's family help set-up his medications. Money Management Money Management Comments Pt states manages his own bills via auto pay. Meal Preparation Meal Preparation Caregiver Provides Assist Leather Scraper Leather Scraper Caregiver Provides Assist M6 OT- IP Functional Cognition Start: 07/07/21 12:21 Freq: Status: Active Protocol: Document 07/07/21 10:50 [facility] (Rec: 07/07/21 12:[address] [id number] Cognitive Factors Limiting Selfcare Function Cognitive Ability Level of Alertness Alert Patient Orientation Name,Place,Situation Attention Span Ability Capable of Focused Attention, Capable of Sustained Attention Cognitive Comments Cognitive Assessment Comments Pt able to follow commands for ADL and mobility needs. OT- Vision and Hearing OT- Hearing Assessment OT- Hearing Assessment WFL OT- Vision Assessment Visual Acuity Glasses For Reading M7 OT- IP Mobility and Balance Start: 07/07/21 12:21 Freq: Status: Active Protocol: Document 07/07/21 10:50 [facility] (Rec: 07/07/21 12:42 [facility] [id number]) OT- Bed Mobility Assessment Sit to Supine Sit to Supine Assist Standby Assistance,Bedrails OT-Transfer Assessment Sit to and From Stand Sit to and from Stand Contact Guard Assistance Comments Mobility Comments Pt just able to tolerate standing with FWW in front of the bed O2 on RA and started at 97% and dropped to 92%. Pt only able to tolerate standing for 30 seconds at a time. Pt gets very tired, SOB and needing to have frequent rest breaks. OT- Balance Assessment Sitting Balance and Reactions Static Sitting Balance Ability Normal Dynamic Sitting Balance Ability Good Standing Balance and Reactions Static Standing Balance Ability Fair M8 OT- IP Objective Assessments Start: 07/07/21 12:21 Freq: Status: Active Protocol: Document 07/07/21 10:50 [facility] (Rec: 07/07/21 12:42 [facility] [id number]) OT Gross Range of Motion Upper Extremity Range of Motion ROM Impairments Limited at end range OT Strength Comments Strength Comments 3-/5 to 4/5 from proximal to distal OT-Muscle Tone Assessment Muscle Tone WNL Yes M9 OT- IP Assessment and Plan Start: 07/07/21 12:21 Freq: Status: Active Protocol: Document 07/07/21 10:50 [facility] (Rec: 07/07/21 12:42 [facility] [id number]) OT Summary Assessment and Plan Potential Rehabilitation Potential Good Analytic Complexity at Evaluation Moderate Summary OT Impairments Range of Motion,Strength, Balance,Functional Cognition, Functional Mobility,Grooming, Dressing,Toileting,Bathing, Toilet Transfers,Shower Transfers,Activity Tolerance Progress Towards Goals Slow Progress due to Medical Issues,Slow Progress due to Activity Tolerance Assessment Summary Pt main barriers are decreased activity tolerance, strength, and endurance and needing assist for mobility and ADl needs. Pt needing rest breaks and increased time just to rosina his socks at this time. Pt having to use BSC /urinal as not able to tolerate much ambulation at this time. Pt would greatly benefit from skilled rehab when medically stable.Pt is very motivated, cooperative and wanting to go to skilled rehab to get better. Goals Self-Feeding Goal Independent Grooming Goal Independent Dressing Goal Independent Toileting Goal Independent Bathing Goal Independent Toilet Transfer Goal Independent Shower Transfer Goal Independent Patient/Caregiver Education Goal Demonstrate Energy Conservation and Pacing Days to Meet Goals 25 Frequency of Treatment Frequency Of Treatment Once a Day Treatment Plan OT Treatment Plan ADL Training,Functional Cognition Training,Functional Mobility,Therapeutic Exercises ,Patient/Family Education, Discharge Planning Other Treatment Recommendations and Next Standing at sink for grooming Treatment Focus needs. Discharge Recommendations OT Discharge Recommendations SNF Rehab Transportation Needs at Discharge Private Vehicle,Wheelchair/ Cabulance
[2021-07-07 12:43] VITALS: BP 137/73; PULSE 89; RESP 18; TEMP 36.6; O2SAT 96
--- NOTE | 2021-07-07 14:38 | PC.NURSE ---
Discharge note: pt transferred to [facility] in [place] by ambulance. Report called in to nurse. Tele removed and IV discontinued. Pt wallet that was locked up in safe was returned to patient. Pt signed form stating he received his belongings. Left acute care in stable condition. Report given to EMT and packet along with POLST given to EMT as well.
== END 2021-07-07 14:38 | DRG 177 ==
LOC: ED 06:57 → AC 08:49
PROVIDERS: Admitting Provider Family Medicine; Emergency Provider Emergency Medicine; Family Provider Family Medicine; PCP Family Medicine; Referring Provider Emergency Medicine; Visit Provider Family Medicine
DX: U07.1 COVID-19 (principal); J12.82 Pneumonia due to coronavirus disease 2019; J96.01 Acute respiratory failure with hypoxia; J44.9 Chronic obstructive pulmonary disease, unspecified; I10 Essential (primary) hypertension; G47.33 Obstructive sleep apnea (adult) (pediatric); R33.9 Retention of urine, unspecified; Z87.891 Personal history of nicotine dependence; Z86.73 Personal history of transient ischemic attack (TIA), and cerebral infarction without residual deficits
CPT/HCPCS: 36415; 71045; 80053; 82550; 82553; 82728; 83605; 83615; 83690; 83735; 83880; 84145; 84484; 85025; 85379; 86140; 87635; 93005; 93010; 94640; 94762; 96361; 96365; 96366; 96375; 97110; 97162; 97166; 97530; 99232; 99238; 99284; C9803; A9270; J1100; J1650; J2930

== ENCOUNTER → 2022-08-06 08:52 | Outpatient (CLI) | payer MEDICARE, OTHER, SELFPAY ==
[2021-07-04 12:00] VITALS: BMI 25.1
[2022-08-06 10:54] LABS: Alanine Aminotransferase 36 IU/L (<50); Albumin 4.6 g/dL (3.5-5.0); Albumin Globulin Ratio 1.4 (1.0-2.8); Alkaline Phosphatase 162 U/L (38-126); Aspartate Aminotransferase 35 IU/L (17-59); BUN Creatinine Ratio 13.9 (6-22); Bilirubin Total 1.3 mg/dL (0.2-1.3); Blood Urea Nitrogen 14 mg/dL (9-20); Calcium 9.6 mg/dL (8.4-10.2); Carbon Dioxide 23 mmol/L (22-32); Chloride 105 mmol/L (98-107); Cholesterol 122 mg/dL (140-199); Estimated Glomerular Filt Rate > 60 mL/min (>60); Globulin 3.3 g/dL (1.7-4.1); Glucose 104 mg/dL (80-110); HDL Cholesterol 66 mg/dL (40-60); HEMOLYSIS < 15 (0-50); LDL Cholesterol Calculated 45 mg/dL (<100); Potassium 4.5 mmol/L (3.4-5.1); Sodium 141 mmol/L (137-145); Total Protein 7.9 g/dL (6.3-8.2); Triglycerides 56 mg/dL (35-150)
[2022-08-06 11:08] LABS: Hemoglobin A1C% w Est Avg Glu 5.8 % (4.0-6.0)
[2022-08-06 18:00] LABS: Creatinine Urine Random 137.3 mg/dL; Microalbumi Creatinin Ratio Ur 33.5 ug/mg CR (<30); Microalbumin Urine Random 4.6 mg/dL (0-1.6)
== END ==
PROVIDERS: Family Provider Family Medicine; PCP Family Medicine; Referring Provider Family Medicine; Visit Provider Family Medicine
DX: R73.03 Prediabetes (principal); I10 Essential (primary) hypertension; E78.00 Pure hypercholesterolemia, unspecified
CPT/HCPCS: 36415; 80053; 80061; 82043; 82570; 83036

== ENCOUNTER 2022-10-06 13:16 | Emergency (ER) | payer MEDICARE, OTHER, SELFPAY ==
[2021-07-04 12:00] VITALS: BMI 25.1
[2022-10-06 13:22] VITALS: BP 133/66; PULSE 91; RESP 32; TEMP 35.9; O2SAT 96; BMI 25.9
--- NOTE | 2022-10-06 13:29 | DI.RAD.S_ITS ---
PROCEDURE: XR CHEST 2V INDICATIONS: SOB, COPD TECHNIQUE: 2 views of the chest were acquired. COMPARISON: [facility], , CHEST 2 VIEW, 11/16/2017, 15:05. [facility], , XR CHEST 1V, 07/04/2021, 7:01. FINDINGS: Surgical changes and devices: None. Lungs and pleura: Hyperinflation consistent with COPD. Right diaphragmatic eventration. There is retrocardiac infiltrate on the lateral view. No pleural effusions or pneumothorax. Mediastinum: Mediastinal contours are normal. Heart size is normal. Bones and chest wall: No suspicious bony abnormalities. Soft tissues appear unremarkable. IMPRESSION: Retrocardiac infiltrate suspicious for pneumonia. Dictated by: Darius Lawrence M.D. on 10/06/2022 at 12:55 Approved by: Darius Lawrence M.D. on 10/06/2022 at 12:56
[2022-10-06 14:17] LABS: COVID-19 CEPHEID 4-PLEX PCR Negative (Negative); Influenza A - CEPHEID Flu A NEGATIVE (NEGATIVE); Influenza B - CEPHEID Flu B NEGATIVE (NEGATIVE); Respiratory Syncytial Virus Negative (Negative)
[2022-10-06 15:30] VITALS: BP 177/73; PULSE 92; O2SAT 92
--- NOTE | 2022-10-06 16:09 | ED_ITS ---
HPI - SOB/Dyspnea <Anjana Conn PA-C - Last Filed: 10/10/22 19:24> General Chief Complaint: Shortness of Breath/Dyspnea Stated Complaint: SOB/middle of COPD flare up Time Seen by Provider: 10/06/22 16:05 Mode of arrival: Family Vehicle History of Present Illness HPI Narrative: 77yo M with history of COPD, SHAWN, hypertension presents with concern for increased persistent severe cough as well as feeling a little tired and under the weather and somewhat reduced appetite for the last 3-4 days. Patient states he has been having a more productive cough with increased sputum production. He does use inhalers and nebulizers at home but he feels these have not been very effective. He comes in today as he is concerned he may have a pneumonia. He denies fevers, chills, severe shortness of breath, chest pain or any other symptoms. He states he has no known sick contacts. He has been using all of his regular medications as prescribed. Related Data Home Medications Medication Instructions Recorded Confirmed Saccharomyces boulardii 250 mg 250 mg PO DAILY 07/04/21 07/05/22 capsule (Florastor) Previous Rx's Medication Instructions Recorded acetaminophen 325 mg tablet 650 mg PO Q6HR PRN Fever/Mild Pain 12/17/19 (1-3) #30 tabs aspirin 81 mg tablet,delayed 81 mg PO DAILY #30 tabs 12/17/19 release guaifenesin 600 mg tablet, 600 mg PO BID PRN Cough #0 tabs 12/17/19 extended release 12 hr (Mucinex) polyethylene glycol 3350 17 gram 17 gm PO DAILY #30 ea 12/17/19 oral powder packet acetaminophen 325 mg tablet 650 mg PO Q6HR #30 tabs 07/07/21 bisacodyl 5 mg tablet,delayed 10 mg PO BID PRN Constipation #30 07/07/21 release tabs docusate sodium 100 mg capsule 100 mg PO BID #30 caps 07/07/21 ibuprofen 600 mg tablet 600 mg PO Q6HR PRN Fever/Mild Pain 07/07/21 (1-3) #30 tabs albuterol sulfate 90 mcg/actuation 2 puff inhalation Q4-6H PRN 07/27/21 aerosol inhaler shortness of breath or wheezing #54 grams amlodipine 10 mg tablet 10 mg PO DAILY #90 tabs 03/15/22 tamsulosin 0.4 mg capsule 0.4 mg PO DAILY #90 caps 05/03/22 lisinopril 20 mg tablet See Rx Instructions .Route 05/10/22 .COMPLEX #90 tabs metoprolol tartrate 50 mg tablet See Rx Instructions .Route 07/27/22 .COMPLEX #180 tabs atorvastatin 80 mg tablet 80 mg PO BEDTIME #90 tabs 08/02/22 benzonatate 100 mg capsule 100 mg PO TID PRN cough 10 days 10/06/22 #30 caps budesonide-formoterol HFA 80 See Rx Instructions .Route 10/18/22 mcg-4.5 mcg/actuation aerosol .COMPLEX #30.6 grams inhaler (Symbicort) Allergies Allergy/AdvReac Type Severity Reaction Status Date / Time Sulfa (Sulfonamide Allergy Unknown Verified 10/06/22 13:24 Antibiotics) [SULFA (SULFONAMIDE ANTIBIOTICS)] Review of Systems <Anjana Conn PA-C - Last Filed: 10/10/22 19:24> Review of Systems Narrative: Unremarkable except as noted in the HPI Patient History <Anjana Conn PA-C - Last Filed: 10/10/22 19:24> Medical History ADHD (attention deficit hyperactivity disorder) (6) Alcohol abuse (1961) Arthritis (1945) Cataract (2004) Chicken pox (1950) Chronic back pain (1972) COPD (chronic obstructive pulmonary disease) (2016) Excessive daytime sleepiness Hearing loss (1994) History of cerebellar stroke Hypertension (2016) Measles (1949) Mumps (1951) Obstructive sleep apnea syndrome Prediabetes Recurrent sinusitis (1994) Rheumatic fever (1961) Tinnitus (1945) Vertigo (2016) Surgical History Anesthesia History of cataract removal with insertion of prosthetic lens (06/24/17) History of cataract removal with insertion of prosthetic lens (07/06/17) Family History Father Heart disease Hypertension Mental health problem Stroke Mother Hypertension Mental health problem Alzheimer's disease Sister Age: 72 Fibromyalgia Grandfather Alzheimer's disease Grandmother No problems noted. Grandfather Black lung disease Grandmother Diabetes mellitus Social History marital status: unmarried,single household members: family lives independently: Yes pets and animals: No education level: college [employer]/sabianism: quaker seatbelt use: always water heater temp set < 120 deg: Yes working smoke detector in home: Yes fire extinguisher in home: No carbon monox detector in home: Yes firearms in home: Yes Smoking Status: Former smoker alcohol intake: former during the past year weight has: remained stable well-balanced diet: daily or most days daily servings fruits/ve-1 caffeine: Yes eating out: 4 or more times/week Type(s) of exercise: other frequency: 3-4 times per week duration: > 90 minutes/day Smoking Status: Former smoker Substance Use Type: does not use Exam <Anjana Conn PA-C - Last Filed: 10/10/22 19:24> Narrative Exam Narrative: GENERAL: 77 year old patient appears stated age. Well-developed patient, in mild distress, somewhat tired appearing. HEAD: Atraumatic. Normocephalic. EYES: Pupils equal round and reactive. Extraocular motions intact. No scleral icterus. No injection or drainage. ENT: Nose without bleeding, purulent drainage. Throat without erythema, tonsillar hypertrophy or exudate. Airway patent. NECK: Trachea midline. Non tender CARDIOVASCULAR: Regular rate and rhythm without murmurs, gallops, or rubs. RESPIRATORY: Frequent persistent cough with coughing spells, bilateral mild rhonchi/slightly coarse lung sounds more prominent on the left. No wheezes, rales. GASTROINTESTINAL: Abdomen soft, non-tender, nondistended. EXTREMITIES: No edema or joint tenderness. BACK: Nontender without deformity or crepitance. No flank tenderness. NEURO: AOx3. SKIN: No rash or erythema of visible areas Initial Vital Signs Initial Vital Signs: Vital Signs Temperature 96.6 F L 10/06/22 13:22 Pulse Rate 91 H 10/06/22 13:22 Respiratory Rate 32 H 10/06/22 13:22 Blood Pressure 133/66 10/06/22 13:22 Pulse Oximetry 96 10/06/22 13:22 Oxygen Delivery Method Room Air 10/06/22 13:22 <Qing Knight DO - Last Filed: 10/18/22 18:26> Initial Vital Signs Initial Vital Signs: Vital Signs Temperature 96.6 F L 10/06/22 13:22 Pulse Rate 91 H 10/06/22 13:22 Respiratory Rate 32 H 10/06/22 13:22 Blood Pressure 133/66 10/06/22 13:22 Pulse Oximetry 96 10/06/22 13:22 Oxygen Delivery Method Room Air 10/06/22 13:22 Scores <Anjana Conn PA-C - Last Filed: 10/10/22 19:24> CURB-65 Confusion: No BUN >19mg/dL (>7mmol/L): No Respiratory rate greater or equal to 30: No SBP <90mmHg or DBP less or equal to 60mmHg: No Age 65 or Older: Yes CURB-65 Total: 1 Score 0-1 Outpatient care, Score 2 Inpt vs. Obs, Score 3 or over Inpt admit with ICU for score of 4-5 <Qing Knight DO - Last Filed: 10/18/22 18:26> CURB-65 CURB-65 Total: 1 Course <Anjana Conn PA-C - Last Filed: 10/10/22 19:24> Orders Ordered: Discontinued Medications Benzonatate (Benzonatate 100 Mg Capsule) 100 mg PO NOW ONE Stop: 10/06/22 16:52 Last Admin: 10/06/22 17:26 Dose: 100 mg Documented By: NR Guaifenesin/Codeine Phosphate (Codeine/Guaifenesin Liquid 5ml Udc) 5 ml PO NOW ONE Stop: 10/06/22 16:44 Last Admin: 10/06/22 16:53 Dose: 5 ml Documented By: NR Vital Signs Vital signs: Vital Signs - 8 hr 10/06/22 13:22 Temperature 96.6 F L Pulse Rate 91 H Respiratory Rate 32 H Blood Pressure 133/66 Pulse Oximetry 96 Oxygen Delivery Method Room Air <Qing Knight DO - Last Filed: 10/18/22 18:26> Orders Ordered: Discontinued Medications Benzonatate (Benzonatate 100 Mg Capsule) 100 mg PO NOW ONE Stop: 10/06/22 16:52 Last Admin: 10/06/22 17:26 Dose: 100 mg Documented By: NR Guaifenesin/Codeine Phosphate (Codeine/Guaifenesin Liquid 5ml Udc) 5 ml PO NOW ONE Stop: 10/06/22 16:44 Last Admin: 10/06/22 16:53 Dose: 5 ml Documented By: NR Vital Signs Vital signs: Vital Signs - 8 hr 10/06/22 13:22 Temperature 96.6 F L Pulse Rate 91 H Respiratory Rate 32 H Blood Pressure 133/66 Pulse Oximetry 96 Oxygen Delivery Method Room Air MDM - SOB/Dyspnea <Anjana Conn PA-C - Last Filed: 10/10/22 19:24> Differential Diagnosis Differential diagnosis: Likely acute exacerbation of chronic obstructive airways disease, congestive heart failure and community acquired pneumonia Lab Data Attestation: I reviewed the patient's lab results. Labs: Lab Results 10/06/22 Range/Units 13:26 SARS-CoV-2 (PCR) Negative (Negative) Influenza A (RT-PCR) Flu a negative (NEGATIVE) Influenza B (RT-PCR) Flu b negative (NEGATIVE) RSV (PCR) Negative (Negative) Imaging Data Chest x-ray: My Impression: Agree with radiologist's interpretation. I also reviewed the imaging with attending physician Dr. Knight. Radiologist's Impression: [place] [address] XRay Report Signed Patient: Charbel Rodrigues MR#: [id number] : 1945 Acct:[id number] Age/Sex: 77 / M Date of Service: 10/06/22 Loc: ED Accession Number: [id number] ?? Procedure: XR chest 2V Ordering Provider: Qing Knight D.O. PROCEDURE:? XR CHEST 2V ? INDICATIONS:? SOB, COPD ? TECHNIQUE:? 2 views of the chest were acquired.? ? [facility]USTAM mackenzie, XR CHEST 1V, 07/04/2021, 7:01. ? FINDINGS:? ? Surgical changes and devices:? None.? ? Lungs and pleura:? Hyperinflation consistent with COPD.? Right diaphragmatic eventration. ?There is retrocardiac infiltrate on the lateral view.? No pleural effusions or pneumothorax.? ? Mediastinum:? Mediastinal contours are normal.? Heart size is normal.? ? Bones and chest wall:? No suspicious bony abnormalities.? Soft tissues appear unremarkable.? ? IMPRESSION:? Retrocardiac infiltrate suspicious for pneumonia. ? ? Dictated by: Darius Lawrence M.D. on 10/06/2022 at 12:55 ? ? Approved by: Darius Lawrence M.D. on 10/06/2022 at 12:56?? Treatment and disposition Shared decision making:: Shared decision-making was used in determining the patient's treatment course and plan in the emergency department. MDM Narrative Medical decision making narrative: This is a 77-year-old male with history of COPD, SHAWN, hypertension who presents with concern for 3-4 days of worsening cough with some productive sputum and concern for pneumonia. Patient has no systemic signs of sepsis or severe i nfection, he is coughing very frequently and endorses increased sputum production, x-ray suggests a pneumonia due to a retrocardiac region consistent with this per Radiology, suspect he have may have a mild COPD exacerbation as well as a mild community-acquired pneumonia. Viral testing today for COVID flu and RSV was negative. Discussed options with the patient and advised would be reasonable to obtain labs for further evaluation and assessment of the severity of his pneumonia/COPD exacerbation however patient did prefers this. He is interested in getting medication to help with his symptoms including his cough and to treat his pneumonia and COPD. Patient was fairly hypertensive intermittently during the emergency department stay however he was also coughing quite frequently and quite intensely and I suspect that this could be a factor. After a long discussion with the patient I do think it is reasonable to pursue outpatient antibiotics for this patient, without a BUN lab it is not possible to accurately calculate curb 65 however anticipate his score would be 1 or 2 depending on the results of BUN. Patient is placed on antibiotics, Augmentin and azithromycin, he is also provided with a short course of steroid medication as well as 2 different cough medicines to help with his cough symptoms. Patient agrees that he will follow up closely with primary care and/or return to the emergency department if he feels he has new or worsening symptoms. <Qing Knight, - Last Filed: 03/27/23 18:26> Lab Data Labs: Lab Results 10/06/22 Range/Units 13:26 SARS-CoV-2 (PCR) Negative (Negative) Influenza A (RT-PCR) Flu a negative (NEGATIVE) Influenza B (RT-PCR) Flu b negative (NEGATIVE) RSV (PCR) Negative (Negative) Discharge Plan Departure Patient Disposition: Home Clinical Impression: Acute exacerbation of chronic obstructive pulmonary disease Activity Restrictions/Additional Instructions: Thank you for letting us be part of your care today in the emergency department. Your chest x-ray is suspicious for a pneumonia. After discussion with you you prefer not to do full workup with labs and further evaluation today, I think this is reasonable, of course as we discussed if you feel your having new or worsening symptoms are not improving with the antibiotics and medications prescribed you should definitely seek re-evaluation. You are always welcome to return to the emergency department if you feel you are not improving or if you are worsening. I have prescribed 2 different cough medicines for you today, as well as to antibiotics as well as steroids for a 5 day course. Please take the antibiotics for the full course even if you are feeling better. There is no evidence of an emergent or life threatening illness at this time, but follow up with your doctor in 1-2 days is recommended nonetheless to continue to rule out serious underlying causes of your symptoms. Please call the office for an appointment. Please return to the Emergency Department for any worsening or persistent symptoms. Please take medications as directed. Prescriptions: New benzonatate 100 mg capsule 100 mg PO TID PRN (Reason: cough) 10 Days Qty: 30 1RF No Action albuterol sulfate 90 mcg/actuation HFA aerosol inhaler 2 puff INHALATION Q4-6H PRN (Reason: shortness of breath or wheezing) Qty: 54 3RF amlodipine 10 mg tablet 10 mg PO DAILY Qty: 90 3RF tamsulosin 0.4 mg capsule 0.4 mg PO DAILY Qty: 90 1RF lisinopril 20 mg tablet See Rx Instructions .ROUTE .COMPLEX Qty: 90 3RF Dose Instruction: TAKE 1 TABLET DAILY Rx Instructions: TAKE 1 TABLET DAILY metoprolol tartrate 50 mg tablet See Rx Instructions .ROUTE .COMPLEX Qty: 180 3RF Dose Instruction: TAKE 1 TABLET TWICE A DAY Rx Instructions: TAKE 1 TABLET TWICE A DAY atorvastatin 80 mg tablet 80 mg PO BEDTIME Qty: 90 3RF Rx Instructions: due for annual exam in August 2021 budesonide-formoterol [Symbicort] 80-4.5 mcg/actuation HFA aerosol inhaler See Rx Instructions .ROUTE .COMPLEX Qty: 30.6 3RF Dose Instruction: USE 2 INHALATIONS ORALLY TWICE DAILY Rx Instructions: USE 2 INHALATIONS ORALLY TWICE DAILY acetaminophen 325 mg Tablet 650 mg PO Q6HR PRN (Reason: Fever/Mild Pain (1-3)) Qty: 30 0RF aspirin 81 mg Tablet,Delayed Release (Dr/Ec) 81 mg PO DAILY Qty: 30 0RF polyethylene glycol 3350 17 gram Powder In Packet 17 gm PO DAILY Qty: 30 0RF guaifenesin [Mucinex] 600 mg tablet extended release 12hr 600 mg PO BID PRN (Reason: Cough) Qty: 0 0RF Patient Comments: 600 MG PO BID As Needed for Cough Saccharomyces boulardii [Florastor] 250 mg Capsule 250 mg PO DAILY acetaminophen 325 mg Tablet 650 mg PO Q6HR Qty: 30 0RF bisacodyl 5 mg Tablet,Delayed Release (Dr/Ec) 10 mg PO BID PRN (Reason: Constipation) Qty: 30 0RF docusate sodium 100 mg Capsule 100 mg PO BID Qty: 30 0RF ibuprofen 600 mg Tablet 600 mg PO Q6HR PRN (Reason: Fever/Mild Pain (1-3)) Qty: 30 0RF Referrals: Veda Costello MD [Primary Care Provider] - Stand Alone Forms: Patient Portal/API <Qing Knight DO - Last Filed: 10/18/22 18:26> Cosign ED Attending Crature Attestation: I was immediately available in the department for consultation.
[2022-10-06 16:28] VITALS: BP 198/81; PULSE 94; RESP 24; O2SAT 96
--- NOTE | 2022-10-06 16:41 | PC.NURSE ---
pt states he thinks he has pneumonia and emphysema with his COPD. believes he is having a flare up of his COPD. states his daughter thinks his cough worsened 3 weeks ago but he thinks it was 3 days ago. he states his cough is continuous and persistent, he has coughed until his voice went hoarse, he can barley sleep. he c/o low energy, body aches, chills and increased SOB. states he normal neb tx and ibuprofen have helped his symptoms but he would like help with his cough today.
[2022-10-06] MEDS: CODEINE/GUAIFENESIN LIQUID 5ML UDC 5 ML PO (16:53)
[2022-10-06] MEDS: BENZONATATE 100 MG CAPSULE PO (17:26)
[2022-10-06 18:06] VITALS: BP 183/78; PULSE 93; RESP 24; O2SAT 93
== END 2022-10-06 18:06 | disposition home or self-care (01) ==
PROVIDERS: Emergency Medicine; Emergency Provider Student in an Organized Health Care Education/Training Program; Family Provider Family Medicine; PCP Family Medicine
DX: J44.1 Chronic obstructive pulmonary disease with (acute) exacerbation (principal); R05.9 Cough, unspecified; Z87.891 Personal history of nicotine dependence
CPT/HCPCS: 0241U; 71046; 99283

== ENCOUNTER → 2022-12-07 10:10 | Outpatient (CLI) | payer MEDICARE, OTHER, SELFPAY ==
[2021-07-04 12:00] VITALS: BMI 25.1
--- NOTE | 2022-12-07 10:12 | DI.RAD.S_ITS ---
PROCEDURE: XR LUMBAR SPINE MIN 4V INDICATIONS: low back pain TECHNIQUE: 5 views of the lumbar spine were acquired, including bilateral oblique views. COMPARISON: [facility], CT, CT ABDOMEN WO/W CON, 01/30/2020, 13:38. FINDINGS: Bones: 5 nonrib-bearing vertebrae are present. There is normal bony alignment. No vertebral body compression fractures. No suspicious bony lesions. Soft tissues: Overlying bowel gas pattern is normal. No suspicious soft tissue calcifications. Oblique images: No pars defects. IMPRESSION: No evidence acute bony abnormality. If clinical suspicion and/or symptoms persist, further assessment with lumbar spine MRI may be helpful for further assessment. Dictated by: Moi Martinez M.D. on 12/07/2022 at 15:54 Approved by: Moi Martinez M.D. on 12/07/2022 at 15:55
== END ==
PROVIDERS: Family Provider Family Medicine; PCP Family Medicine; Referring Provider Family Medicine; Visit Provider Family Medicine
DX: M54.50 Low back pain, unspecified (principal)
CPT/HCPCS: 72110

== ENCOUNTER → 2022-12-09 13:26 | Outpatient (CLI) | payer MEDICARE, OTHER, SELFPAY ==
[2021-07-04 12:00] VITALS: BMI 25.1
--- NOTE | 2022-12-16 10:46 | PM.PFT.1 ---
Pulmonary Function Test Referral & Results Date Patient Seen: 12/09/22 Results: The spirometry demonstrates an FVC of 3.79 L which is 76% of predicted. The FEV1 was measured at 1.24 L which is 34% of predicted. The FEV1/FVC ratio was 33 which is 45% of predicted. Following the administration of bronchodilator there was 19% improvement in FEV1 and a 45% improvement in FEF 25-75%. Lung volumes show an SVC of 3.48 L which is 67% of predicted. The diffusing capacity was measured at 15.77 which is 41% of predicted. No hemoglobin value was provided, so no correction for potential anemia could be made, if appropriate. The maximum voluntary ventilation was reduced Interpretation: This study demonstrates moderately severe obstructive lung disease based on reduction FEV1 and FEV1/FVC ratio. There is evidence significant benefit following bronchodilator as above There is a moderate reduction in lung volumes suggesting the presence of moderate restrictive lung disease There is also a moderate to moderately severe reduction in diffusing capacity suggesting the presence of significant disease at the capillary alveolar level Compared to PFTs performed in November 2017, current study shows decline in FEV1 as well as lung volumes. There is also a decline in diffusing capacity Overall this is evidence of moderate to moderately severe COPD with evidence of significant decline since 2018 Clinical correlation suggested
== END ==
PROVIDERS: Family Provider Family Medicine; PCP Family Medicine; Referring Provider Family Medicine; Visit Provider Family Medicine
DX: J44.9 Chronic obstructive pulmonary disease, unspecified (principal); Z87.891 Personal history of nicotine dependence
CPT/HCPCS: 94060; 94618; 94726; 94729

== ENCOUNTER → 2022-12-24 08:16 | Outpatient (CLI) | payer MEDICARE, OTHER, SELFPAY ==
[2021-07-04 12:00] VITALS: BMI 25.1
--- NOTE | 2022-12-24 08:18 | DI.MRI.S_ITS ---
PROCEDURE: MR LUMBAR SPINE WO CON INDICATIONS: Lumbar radiculopathy, hyporeflexia TECHNIQUE: Noncontrast sagittal T1 spin echo and T2 fast echo, sagittal STIR, and T2 fast spin echo through the lumbar spine. In cases with scoliosis, additional coronal T2 fast spin echo may be performed. COMPARISON: None. FINDINGS: Image quality: Excellent. Alignment and Curvature: There is normal bony alignment. Bone Marrow: Marrow is of normal overall signal. No acute vertebral body compression fractures. Mild anterior height loss noted at L4 reflects old healed compression fracture Spinal Cord: Conus medullaris terminates at the L1 level. Visualized cord demonstrates normal signal and size. Paraspinous Soft Tissues: No paravertebral masses. T12-L1: Normal appearance. L1-L2: Normal appearance. L2-L3: Disc height is maintained. Circumferential disc bulge results in mild central stenosis. Mild bilateral foraminal stenosis L3-L4: Disc space narrowing with asymmetric right disc bulge and hypertrophic facet joints results in [id number] central stenosis. Moderate right and mild left foraminal stenosis L4-L5: Disc space is maintained. Hypertrophic facet joints present. Mild central stenosis. Moderate bilateral foraminal stenosis L5-S1: Disc space is maintained. Circumferential disc bulge and hypertrophic facet joints. No central stenosis. Moderate left and moderate right foraminal stenosis IMPRESSION: Multilevel degenerative disc disease and arthropathy results in varying degrees of central and foraminal stenosis including moderate foraminal stenosis L3-4, L4-5 and L5-S1 Approved by: Duglas Rojo M.D. on 12/24/2022 at 11:28
== END ==
PROVIDERS: Family Provider Family Medicine; PCP Family Medicine; Referring Provider Anesthesiology; Visit Provider Anesthesiology
DX: M54.16 Radiculopathy, lumbar region (principal); R29.2 Abnormal reflex; M51.36 Other intervertebral disc degeneration, lumbar region; M48.061 Spinal stenosis, lumbar region without neurogenic claudication; M47.816 Spondylosis without myelopathy or radiculopathy, lumbar region
CPT/HCPCS: 72148

== ENCOUNTER 2023-01-26 13:55 | Emergency (ER) | payer MEDICARE, OTHER, SELFPAY ==
[2021-07-04 12:00] VITALS: BMI 25.1
[2023-01-26 14:08] VITALS: BP 252/112; PULSE 84; RESP 17; O2SAT 92; BMI 26.6
--- NOTE | 2023-01-26 14:11 | PC.NURSE ---
Discussed w/ Dr. Paz. Ordered regular po medications.
[2023-01-26] MEDS: AMLODIPINE 5 MG TABLET 10 MG PO (14:17)
[2023-01-26] MEDS: METOPROLOL IR 25 MG TABLET 50 MG PO (14:18)
[2023-01-26 14:33] VITALS: BP 253/88; PULSE 60
[2023-01-26] MEDS: lisinopriL 20 MG TABLET PO (14:33)
[2023-01-26 15:05] VITALS: BP 208/95; PULSE 63; RESP 16; O2SAT 94
[2023-01-26] MEDS: IBUPROFEN 400 MG TABLET PO (15:14)
[2023-01-26] MEDS: CYCLOBENZAPRINE 10 MG TABLET 5 MG PO (15:14)
[2023-01-26 15:55] VITALS: BP 189/84; PULSE 62; RESP 14; O2SAT 99
[2023-01-26 16:31] VITALS: BP 175/80
--- NOTE | 2023-01-27 06:39 | ED_ITS ---
HPI - General Adult General Chief complaint: Hypertension Stated complaint: BP too high/sent by rad Time Seen by Provider: 01/26/23 14:15 Source: patient Mode of arrival: Ambulatory History of Present Illness HPI narrative: 77-year-old male former smoker with history of hypertension and chronic back pain presents from the diagnostic Imaging Department for evaluation of high blood pressure. He was in their department to receive an epidural injection for help with chronic back pain and during the check-in process they noted his blood pressure to be over 200 and he was sent to the emergency department for evaluation. The patient denies any symptoms such as headache or blurred vision, chest pain, shortness of breath, nausea or vomiting. He admits he would not taken his medications today. Related Data Home Medications Medication Instructions Recorded Confirmed Saccharomyces boulardii 250 mg 250 mg PO DAILY 07/04/21 01/04/23 capsule (Florastor) Previous Rx's Medication Instructions Recorded aspirin 81 mg tablet,delayed 81 mg PO DAILY #30 tabs 12/17/19 release guaifenesin 600 mg tablet, 600 mg PO BID PRN Cough #0 tabs 12/17/19 extended release 12 hr (Mucinex) polyethylene glycol 3350 17 gram 17 gm PO DAILY #30 ea 12/17/19 oral powder packet acetaminophen 325 mg tablet 650 mg PO Q6HR #30 tabs 07/07/21 bisacodyl 5 mg tablet,delayed 10 mg PO BID PRN Constipation #30 07/07/21 release tabs docusate sodium 100 mg capsule 100 mg PO BID #30 caps 07/07/21 ibuprofen 600 mg tablet 600 mg PO Q6HR PRN Fever/Mild Pain 07/07/21 (1-3) #30 tabs amlodipine 10 mg tablet 10 mg PO DAILY #90 tabs 03/15/22 lisinopril 20 mg tablet See Rx Instructions .Route 05/10/22 .COMPLEX #90 tabs metoprolol tartrate 50 mg tablet See Rx Instructions .Route 07/27/22 .COMPLEX #180 tabs atorvastatin 80 mg tablet 80 mg PO BEDTIME #90 tabs 08/02/22 benzonatate 100 mg capsule 100 mg PO TID PRN cough 10 days 10/06/22 #30 caps budesonide-formoterol HFA 80 See Rx Instructions .Route 10/18/22 mcg-4.5 mcg/actuation aerosol .COMPLEX #30.6 grams inhaler (Symbicort) tamsulosin 0.4 mg capsule See Rx Instructions .Route 11/02/22 .COMPLEX #90 caps levalbuterol tartrate 45 2 puff inhalation Q4-6H PRN 01/12/23 mcg/actuation aerosol inhaler shortness of breath or wheezing #45 grams Allergies Allergy/AdvReac Type Severity Reaction Status Date / Time Sulfa (Sulfonamide Allergy Unknown Verified 01/26/23 14:10 Antibiotics) [SULFA (SULFONAMIDE ANTIBIOTICS)] Review of Systems Review of Systems Narrative: GENERAL: Denies chills, fatigue, malaise, fever, sweats. HEENT: Denies sinus pain, ear pain, sore throat, difficulty swallowing, dizziness. RESPIRATORY: Denies dyspnea, cough, wheezing, hemoptysis, sputum. CARDIOVASCULAR: Denies chest pain, palpitations, orthopnea, edema, GASTROINTESTINAL: Denies nausea, vomiting, abdominal pain, diarrhea, constipation, melena. : Denies dysuria, frequency, incontinence, hematuria, urinary retention. MUSCULOSKELETAL: denies weakness, joint pain, or bony pain SKIN: Denies rash, skin lesions, or other NEUROLOGIC: Denies weakness, headache, numbness, change in speech, confusion, seizures, incoordination. PSYCHIATRIC: No concerning psychosocial issues. 12 point review of systems is negative except for those stated above Patient History Medical History ADHD (attention deficit hyperactivity disorder) (1946) Alcohol abuse (1961) Arthritis (1945) Cataract (2004) Chicken pox (1950) Chronic back pain (1972) COPD (chronic obstructive pulmonary disease) (2016) Excessive daytime sleepiness Hearing loss (1994) History of cerebellar stroke Hypertension (2016) Low back pain Lumbar radiculopathy Lumbar spondylosis Measles (1949) Mumps (1951) Obstructive sleep apnea syndrome Prediabetes Recurrent sinusitis (1994) Rheumatic fever (1961) Tinnitus (1945) Vertigo (2016) Surgical History Anesthesia History of cataract removal with insertion of prosthetic lens (06/24/17) History of cataract removal with insertion of prosthetic lens (07/06/17) Family History Father Heart disease Hypertension Mental health problem Stroke Mother Hypertension Mental health problem Alzheimer's disease Sister Age: 72 Fibromyalgia Grandfather Alzheimer's disease Grandmother No problems noted. Grandfather Black lung disease Grandmother Diabetes mellitus Social History marital status: unmarried,single household members: family lives independently: Yes pets and animals: No education level: college [place]/temple: christian seatbelt use: always water heater temp set < 120 deg: Yes working smoke detector in home: Yes fire extinguisher in home: No carbon monox detector in home: Yes firearms in home: Yes Smoking Status: Former smoker alcohol intake: former during the past year weight has: remained stable well-balanced diet: daily or most days daily servings fruits/ve-1 caffeine: Yes eating out: 4 or more times/week Type(s) of exercise: other frequency: 3-4 times per week duration: > 90 minutes/day Smoking Status: Former smoker Substance Use Type: does not use Exam Narrative Exam Narrative: GEN: AOx3 and in no obvious distress EYES: Pupils are equal, round, and reactive to light and accommodation. Extraoccular muscles are intact bilaterally. There is no subconjunctival hemorrhage or exudate. CHEST: Lungs are clear to auscultation bilaterally and free of wheezes, rales, or rhonchi. Heart rate is regular rhythm, there are no murmurs, clicks, rubs, or gallops. There is no chest wall tenderness. ABD: Abdomen is soft and nontender. There is no guarding or rebound. Bowel sounds are normal in all 4 quadrants. There is no mass or organomegaly. EXT: Full painless ROM of all extremities with no loss of sensation or strength. SKIN: Warm, pink, and dry. No erythema or rash Initial Vital Signs Initial Vital Signs: Vital Signs Pulse Rate 84 01/26/23 14:08 Respiratory Rate 17 01/26/23 14:08 Blood Pressure 252/112 H 01/26/23 14:08 Pulse Oximetry 92 01/26/23 14:08 Oxygen Delivery Method Room Air 01/26/23 14:08 Oxygen Flow Rate 98.1 01/26/23 14:08 Course Orders Ordered: Discontinued Medications Amlodipine Besylate (Amlodipine 5 Mg Tablet) 10 mg PO NOW ONE Stop: 01/26/23 14:12 Last Admin: 01/26/23 14:17 Dose: 10 mg Documented By: ALEXSANDER Cyclobenzaprine HCl (Cyclobenzaprine 10 Mg Tablet) 5 mg PO NOW ONE Stop: 01/26/23 15:05 Last Admin: 01/26/23 15:14 Dose: 5 mg Documented By: ALEXSANDER Ibuprofen (Ibuprofen 400 Mg Tablet) 400 mg PO NOW ONE Stop: 01/26/23 15:05 Last Admin: 01/26/23 15:14 Dose: 400 mg Documented By: ALEXSANDER Lisinopril (Lisinopril 20 Mg Tablet) 20 mg PO NOW ONE Stop: 01/26/23 14:12 Last Admin: 01/26/23 14:33 Dose: 20 mg Documented By: ALEXSANDER Metoprolol Tartrate (Metoprolol Ir 25 Mg Tablet) 50 mg PO NOW ONE Stop: 01/26/23 14:12 Last Admin: 01/26/23 14:18 Dose: 50 mg Documented By: ALEXSANDER Reevaluation(s) Reevaluation #1: Patient given his routine meds, blood pressure has improved, patient continues to be asymptomatic Medical Decision Making MDM Narrative Medical decision making narrative: [77] year old patient presents with Multiple etiologies for patient's symptoms considered including, but not limited to: [medical non-compliance versus other] Prior Charts reviewed in our EMR Primary Historian: patient Patient with asymptomatic hypertension had not taken his medications. He is given his routine medications with improvement in blood pressure and at no point does he have symptoms. No indication for diagnostic workup. Patient understands the importance of taking medications as directed. He is appropriate for discharge, he understands and agrees with diagnosis and plan Findings and discharge diagnosis discussed with patient/family followed by verbalization of understanding Return precautions discussed with patient/family whom verbalize understanding of diagnosis and plan Discharge Plan Departure Patient Disposition: Home Clinical Impression: Hypertension Instructions: DI for High Blood Pressure Activity Restrictions/Additional Instructions: *You have been diagnosed with [hypertension resolved] *What to do: *Please continue to take your regular medications as directed. *Please follow up with your primary care provider in 2-3 days, call for an appointment. Let them know you were seen in the Emergency Department and that we ask that you be seen in follow up. We will electronically transmit a record of today's note if your PCP is in our system *If you do not have a primary care provider please contact the [facility] Resource line at [phone]. They will ask some questions about your medical history and help get you set up with a doctor in the community. *Return to Emergency Department if you should have any new, worsening or concerning symptoms, such as [fever greater than 101 F, shaking chills, worsening pain, persistent vomiting or other bothersome symptoms] Prescriptions: No Action amlodipine 10 mg tablet 10 mg PO DAILY Qty: 90 3RF lisinopril 20 mg tablet See Rx Instructions .ROUTE .COMPLEX Qty: 90 3RF Dose Instruction: TAKE 1 TABLET DAILY Rx Instructions: TAKE 1 TABLET DAILY metoprolol tartrate 50 mg tablet See Rx Instructions .ROUTE .COMPLEX Qty: 180 3RF Dose Instruction: TAKE 1 TABLET TWICE A DAY Rx Instructions: TAKE 1 TABLET TWICE A DAY atorvastatin 80 mg tablet 80 mg PO BEDTIME Qty: 90 3RF Rx Instructions: due for annual exam in August 2021 budesonide-formoterol [Symbicort] 80-4.5 mcg/actuation HFA aerosol inhaler See Rx Instructions .ROUTE .COMPLEX Qty: 30.6 3RF Dose Instruction: USE 2 INHALATIONS ORALLY TWICE DAILY Rx Instructions: USE 2 INHALATIONS ORALLY TWICE DAILY tamsulosin 0.4 mg capsule See Rx Instructions .ROUTE .COMPLEX Qty: 90 1RF Dose Instruction: TAKE 1 CAPSULE DAILY Rx Instructions: TAKE 1 CAPSULE DAILY levalbuterol tartrate 45 mcg/actuation HFA aerosol inhaler 2 puff inhalation Q4-6H PRN (Reason: shortness of breath or wheezing) Qty: 45 3RF aspirin 81 mg Tablet,Delayed Release (Dr/Ec) 81 mg PO DAILY Qty: 30 0RF polyethylene glycol 3350 17 gram Powder In Packet 17 gm PO DAILY Qty: 30 0RF guaifenesin [Mucinex] 600 mg tablet extended release 12hr 600 mg PO BID PRN (Reason: Cough) Qty: 0 0RF Patient Comments: 600 MG PO BID As Needed for Cough benzonatate 100 mg capsule 100 mg PO TID PRN (Reason: cough) 10 Days Qty: 30 1RF Saccharomyces boulardii [Florastor] 250 mg Capsule 250 mg PO DAILY acetaminophen 325 mg Tablet 650 mg PO Q6HR Qty: 30 0RF bisacodyl 5 mg Tablet,Delayed Release (Dr/Ec) 10 mg PO BID PRN (Reason: Constipation) Qty: 30 0RF docusate sodium 100 mg Capsule 100 mg PO BID Qty: 30 0RF ibuprofen 600 mg Tablet 600 mg PO Q6HR PRN (Reason: Fever/Mild Pain (1-3)) Qty: 30 0RF Referrals: Veda Costello MD [Primary Care Provider] - Stand Alone Forms: Patient Portal/API
== END 2023-01-26 16:20 | disposition home or self-care (01) ==
PROVIDERS: Emergency Provider Emergency Medicine; Family Provider Family Medicine; PCP Family Medicine
DX: I10 Essential (primary) hypertension (principal); Z79.899 Other long term (current) drug therapy
CPT/HCPCS: 93005; 93010; 99283

== ENCOUNTER 2023-03-02 12:18 | Outpatient (CLI) | payer MEDICARE, OTHER, SELFPAY ==
[2021-07-04 12:00] VITALS: BMI 25.1
[2023-03-02] VITALS (12 sets, daily range): BP systolic 146–211; BP diastolic 57–93; PULSE 60–77; RESP 12–16; TEMP 36.8; O2SAT 93–98
--- NOTE | 2023-03-02 12:19 | DI.RAD.S_ITS ---
PROCEDURE: PAIN L INTERLAMINAR/CAUDAL INJ INDICATIONS: RADICULOPATHY COMPARISON: [facility], CR, XR LUMBAR SPINE MIN 4V, 12/07/2022, 10:08. FINDINGS: Fluoroscopic spot filming was performed to verify placement of a spinal needle at the L4-L5 level, as labeled on the films. Appropriate location of the needle tip was confirmed by injection of iodinated contrast. IMPRESSION: Intraprocedural examination within normal limits. Dictated by: Corey Vicente M.D. on 03/02/2023 at 19:29 Approved by: Corey Vicente M.D. on 03/02/2023 at 19:29
--- NOTE | 2023-03-02 12:47 | PC.NURSE ---
Pt came in today with initial BP of 211/93 right arm, second recheck on left arm 202/87. Dr. Liriano in talking with patient. Agreed to wait 15-20 minutes and recheck and then make a decision on proceeding.
--- NOTE | 2023-03-02 13:00 | P.PCN_ITS ---
Date/Time/Diagnoses Date of procedure: 03/02/23 Time of procedure: 13:00 Procedure Notes Physician: Cornell Liriano Total Fluoroscopy time (seconds): 11 Total sedation minutes: 7 Procedure in detail & Post-procedure care: L4-5 Interlaminar Epidural Steroid Injection Indications: Charbel is presenting for treatment of lumbar radiculopathy with low back and leg pain. Preoperative diagnosis: Lumbar radiculopathy Postoperative diagnosis: Same Focused Examination: Ax3 Mood and affect are normal Vital Signs: VSS ASA: 3 Consent: Following review of allergies and potential side effects/complications, including, but not necessarily limited to, infection, allergic reaction, local tissue breakdown, stroke, temporary or permanent nerve injury, paralysis, and possible , the patient indicated that they understood and agreed to pr oceed.? An informed consent document was signed by the patient, witnessed by a nurse and placed in the patient's chart.? Additionally, other treatment options including medications and physical therapy were reviewed with the patient. All questions were answered. Site was then marked. Anesthesia: After review of previous anesthetic history and IV conscious sedation, the patient was deemed safe to proceed with today's procedure with IV conscious sedation. IV sedation was accomplished with midazolam 2 mg administered by the RN after order by Dr. Liriano. Sedation was titrated to patient comfort during the course of the procedure. Patient remained responsive to all verbal commands. Position: Prone Monitoring: NIBP, Pulse oximetry, 3 lead EKG Needle used: 18 G 3.5? Tuohy Contrast: Isovue 300M Injectate: Dexamethasone 10 mg with 1% lidocaine 2 mL Technique: The skin was prepped with chloraprep and then draped in a sterile fashion. Time out was performed as per protocol. Oxygen applied via NC. Skin and subcutaneous structures of the needle entry site was then infiltrated with 3 mL of lidocaine 1%. Under AP, lateral and contralateral oblique fluoroscopic control, the Tuohy needle was guided into the L4-5 epidural space. The space was accessed with loss of resistance technique. Isovue 300M was then injected and the spread was consistent with the epidural space. There was no evidence for intravascular or intrathecal uptake. After negative aspiration, the above- mentioned injectate was then slowly administered and the needle withdrawn. The patient expressed no unusual discomfort or paresthesias during the injection. Band-Aids applied to injection sites. EBL: less than 1 ml Complications: None Post Procedure: Patient was taken to the recovery and monitored. The patient was provided a Pain Log to continue to record the patient's response to the target- specific procedure prior to the patient's follow-up visit with the referring physician. Patient was stable upon discharge. Detailed post procedure instructions were provided. Patient was asked to call in the event of worsening pain, fever, weakness, numbness or bladder or bowel incontinence.
[2023-03-02] MEDS: MIDAZOLAM 2 MG/2 ML VIAL IV (13:16)
[2023-03-02] MEDS: DEXAMETHASONE 10 MG/ML VIAL INJ (13:19)
[2023-03-02] MEDS: IOPAMIDOL 15 ML VIAL 3 ML INJ (13:19)
== END 2023-03-02 13:48 | disposition home or self-care (01) ==
LOC: RAD 12:19
PROVIDERS: Family Provider Family Medicine; PCP Family Medicine; Referring Provider Anesthesiology; Visit Provider Anesthesiology
DX: M54.16 Radiculopathy, lumbar region (principal)
CPT/HCPCS: 62323; 99152; J1100; J2250

== ENCOUNTER 2023-03-24 10:15 | Outpatient (RCR) | payer MEDICARE, OTHER, SELFPAY ==
[2021-07-04 12:00] VITALS: BMI 25.1
== END 2023-03-24 12:15 ==
LOC: PUL 10:15
PROVIDERS: Family Provider Family Medicine; PCP Family Medicine; Referring Provider Family Medicine; Visit Provider Family Medicine
DX: J44.9 Chronic obstructive pulmonary disease, unspecified (principal)
CPT/HCPCS: 94626

== ENCOUNTER 2023-04-13 12:31 | Outpatient (CLI) | payer MEDICARE, OTHER, SELFPAY ==
[2021-07-04 12:00] VITALS: BMI 25.1
[2023-04-13] VITALS (11 sets, daily range): BP systolic 135–201; BP diastolic 65–87; PULSE 53–70; RESP 12–16; TEMP 36.6; O2SAT 94–98
--- NOTE | 2023-04-13 12:33 | DI.RAD.S_ITS ---
PROCEDURE: PAIN SI JOINT INJECTION INDICATIONS: joint dysfunction COMPARISON: [facility], XA, PAIN L INTERLAMINAR/CAUDAL INJ, 03/02/2023, 13:10. FINDINGS: On these intraprocedural images, there is a spinal needle seen overlying the inferior aspect of the right sacroiliac joint. Appropriate position of the tip of the needle was confirmed by injection of a small amount of iodinated contrast. IMPRESSION: Successful sacroiliac joint injection. Dictated by: Corey Vicente M.D. on 04/13/2023 at 19:41 Approved by: Corey Vicente M.D. on 04/13/2023 at 19:42
[2023-04-13] MEDS: MIDAZOLAM 2 MG/2 ML VIAL 1 MG IV (13:13)
[2023-04-13] MEDS: iopamidoL 15 ML VIAL 3 ML INJ (13:17)
[2023-04-13] MEDS: DEXAMETHASONE 10 MG/ML VIAL INJ (13:17)
--- NOTE | 2023-04-13 17:00 | P.PCN_ITS ---
Date/Time/Diagnoses Date of procedure: 04/13/23 Time of procedure: 13:00 Procedure Notes Physician: Cornell Liriano Total Fluoroscopy time (seconds): 13 Total sedation minutes: 10 Procedure in detail & Post-procedure care: Right Sacroiliac Joint Injection Indications: Charbel is presenting for treatment of SI joint dysfunction with low back/buttock pain. Preoperative diagnosis: Right SI joint dysfunction Postoperative diagnosis: Same Focused Examination: Ax3 Mood and affect are normal Vital Signs: VSS ASA: 2 Consent: Following review of allergies and potential side effects/complications, including, but not necessarily limited to, infection, allergic reaction, local tissue breakdown, stroke, temporary or permanent nerve injury, paralysis, and possible , the patient indicated that they understood and agreed to proceed.? An informed consent document was signed by the patient, witnessed by a nurse and placed in the patient's chart.? Additionally, other treatment options including medications and physical therapy were reviewed with the patient. All questions were answered. Site was then marked. Anesthesia: After review of previous anesthetic history and IV conscious sedation, the patient was deemed safe to proceed with today's procedure with IV conscious sedation. IV sedation was accomplished with midazolam 1 mg administered by the RN after order by Dr. Liriano. Sedation was titrated to pat ient comfort during the course of the procedure. Patient remained responsive to all verbal commands. Position: Prone Monitoring: NIBP, Pulse oximetry, 3 lead EKG Needle used: 22 ga, 3.5 inch spinal Contrast: 2 mL Isovue M-300 Injectate: Dexamethasone 7.5 mg with 1% lidocaine 2 mL Technique: The skin was prepped with chloraprep and then draped in a sterile fashion. Time out was performed as per protocol. Oxygen applied via NC. Skin and subcutaneous structures of the needle entry site was then infiltrated with 5 mL of lidocaine 1%. Under AP and lateral fluoroscopic control, the spinal needle was guided into the right sacroiliac joint. 1 mL contrast was injected and was consistent with intra-articular placement. There was no evidence for intravascular uptake. After negative aspiration, the above-mentioned injectate was then slowly administered and the needle withdrawn. The patient expressed no unusual discomfort or paresthesias during the injection. Band-Aids applied to injection sites. EBL: less than 1 ml Complications: None Post Procedure: Patient was taken to the recovery and monitored. The patient was provided a Pain Log to continue to record the patient's response to the target- specific procedure prior to the patient's follow-up visit with the referring physician. Patient was stable upon discharge. Detailed post procedure instructions were provided. Patient was asked to call in the event of worsening pain, fever, weakness, numbness or bladder or bowel incontinence.
== END 2023-04-13 14:00 | disposition home or self-care (01) ==
PROVIDERS: Family Provider Family Medicine; PCP Family Medicine; Referring Provider Anesthesiology; Visit Provider Anesthesiology
DX: M53.3 Sacrococcygeal disorders, not elsewhere classified (principal)
CPT/HCPCS: 27096; 77002; 99152; J1100; J2250

== ENCOUNTER → 2023-08-09 10:31 | Outpatient (CLI) | payer MEDICARE, SELFPAY ==
[2021-07-04 12:00] VITALS: BMI 25.1
[2023-08-09 11:51] LABS: Alanine Aminotransferase 29 IU/L (<50); Albumin 4.4 g/dL (3.5-5.0); Albumin Globulin Ratio 1.2 (1.0-2.8); Alkaline Phosphatase 134 U/L (38-126); Aspartate Aminotransferase 30 IU/L (17-59); BUN Creatinine Ratio 15.1 (6-22); Bilirubin Total 1.4 mg/dL (0.2-1.3); Blood Urea Nitrogen 16 mg/dL (9-20); Calcium 10.2 mg/dL (8.4-10.2); Carbon Dioxide 22 mmol/L (22-32); Chloride 109 mmol/L (98-107); Cholesterol 113 mg/dL (140-199); Estimated Glomerular Filt Rate > 60 mL/min (>60); Globulin 3.6 g/dL (1.7-4.1); Glucose 125 mg/dL (80-110); HDL Cholesterol 57 mg/dL (40-60); HEMOLYSIS < 15 (0-50); LDL Cholesterol Calculated 43 mg/dL (<100); Potassium 3.9 mmol/L (3.4-5.1); Sodium 144 mmol/L (137-145); Triglycerides 64 mg/dL (35-150)
[2023-08-09 16:33] LABS: Creatinine Urine Random 207.9 mg/dL
[2023-08-09 16:36] LABS: Microalbumi Creatinin Ratio Ur 31.2 ug/mg CR (<30); Microalbumin Urine Random 6.5 mg/dL (0-1.6)
== END ==
LOC: LAB 10:34
PROVIDERS: Family Provider Family Medicine; PCP Family Medicine; Referring Provider Family Medicine; Visit Provider Family Medicine
DX: I10 Essential (primary) hypertension (principal); R73.03 Prediabetes
CPT/HCPCS: 36415; 80053; 80061; 82043; 82570

== ENCOUNTER → 2024-04-30 13:51 | Outpatient (CLI) | payer MEDICARE, SELFPAY ==
[2021-07-04 12:00] VITALS: BMI 25.1
--- NOTE | 2024-04-30 13:52 | DI.CT.S_ITS ---
PROCEDURE: CT CHEST WO CON INDICATIONS: Hx COPD, worsening dyspnea TECHNIQUE: Noncontrast 5 mm thick sections acquired from the pulmonary apices to the posterior costophrenic angles. 1 mm lung window, 5 mm thick coronal and sagittal and 7 mm axial MIP reformats were then acquired. For radiation dose reduction, the following was used: automated exposure control, adjustment of mA and/or kV according to patient size. COMPARISON: [facility], CT, CT CHEST WO CON, 08/20/2020, 10:46. FINDINGS: Image quality: Diagnostic. Lower Neck: No enlarged lymph nodes. Thyroid: No thyroid nodules which require sonographic follow up, per consensus guidelines. Axillae: No enlarged lymph nodes. Chest Wall: Unremarkable. Bones: Unremarkable. Lungs and Pleura: No pneumothorax or pleural effusions. No consolidation. Moderate centrilobular emphysema. No suspicious pulmonary nodules. Lower lobe predominant bronchiectasis. Heart: Heart size is normal. No pericardial effusion. Moderate to severe coronary artery calcifications. Thoracic Vessels: The aorta and pulmonary arteries demonstrate normal size. Mediastinum and Adeola: No enlarged lymph nodes. Esophagus: No wall thickening. Small hiatal hernia. Upper Abdomen: Visualized upper abdomen solid organs and bowel loops appear normal. IMPRESSION: No suspicious pulmonary nodules. Moderate centrilobular emphysema. Moderate to severe coronary calcifications. Approved by: Rhea Barragan M.D.,Ph.D. on 05/01/2024 at 0:24
--- NOTE | 2024-04-30 13:52 | DI.ECHO.S_ITS ---
[facility] : : [address] : : [place] : : [id number] : : Phone: [phone] Echocardiogram Report + + :Name: MARIA DE JESUS ANN Study Date: 04/30/2024 Height: 74.5 in: :[facility] ReadingLocation: Weight: 200 lb : : Gender: Male BSA: 2.2 m2 : :: 1945 Age: 79 yrs BP: 161/81 mmHg: :Reason For Study: COPD : :Ordering Physician: CHEPE, : :MANAN Performed By: Denisse Baig : :Referring: MANAN MO : + + Interpretation Summary The study quality was technically difficult. The left ventricle is grossly normal size. The ejection fraction is estimated to be 55-60%. Diastolic parameters suggest a relaxation abnormality of the left ventricle, consistent with probable normal filling pressures. No significant valvular abnormality. Comparison is made with the echocardiogram of 12/14/2019, no significant change. Procedure: A two-dimensional transthoracic echocardiogram with color flow and Doppler was performed. The study quality was technically difficult. Comparison is made with the echocardiogram of 12/14/2019. The patient was in a bradycardic rhythm during the exam. The patient was in sinus rhythm with heart rates between 41-59 bpm during the exam. The patient had occasional PVCs during the exam. Left Ventricle: The left ventricle is grossly normal size. The ejection fraction is estimated to be 55-60%. There are no obvious focal wall motion abnormalities noted but poor endocardial definition reduces the sensitivity for the detection of such. Diastolic parameters suggest a relaxation abnormality of the left ventricle, consistent with probable normal filling pressures. Right Ventricle: The right ventricle is normal in size and function. Atria: Both atria are normal in size. There is no Doppler evidence for an interatrial shunt. Mitral Valve: The mitral valve leaflets are moderately calcified. There is no mitral valve stenosis. There is trace mitral regurgitation. Aortic Valve: The aortic valve is trileaflet. The aortic valve opens well. There is mild aortic valve sclerosis. There is no aortic valve stenosis. No aortic regurgitation is present. Tricuspid Valve: The tricuspid valve leaflets are thin and pliable. There is trace tricuspid regurgitation. Pulmonic Valve: The pulmonic valve leaflets are thin and pliable; valve motion is normal. There is a trace or physiologic amount of pulmonic regurgitation. Great Vessels: The aortic root is normal size. The ascending aorta is normal in size. The aortic arch could not be visualized. The pulmonary artery is not well visualized, but is probably normal size. The IVC is of normal diameter and collapses greater than 50% with a sniff. This suggests a low right atrial pressure of 3 mm Hg. Pericardium/ Pleura There is an anterior echo-free space consistent with a fat pad. There is no pericardial effusion. There is no pleural effusion. MMode/2D Measurements & Calculations LVIDd: 5.2 cm Ao root diam: 3.5 cm LVIDs: 3.6 cm asc Aorta Diam: 3.3 cm FS: 31.7 % IVSd: 0.90 cm LVPWd: 0.81 cm LV romero. diameter/BSA (cm/m^2): 2.4 LV sys. diameter/BSA (cm/m^2): 1.6 LA A2 area: 19.7 cm2 RA long axis: 4.8 cm LA A4 area: 21.3 cm2 RA area: 15.7 cm2 LA length (vol): 5.4 cm RA vol: 43.4 ml LA vol: 65.9 ml RA : 19.9 ml/m2 LA vol index: 30.2 ml/m2 IVC diam: 1.4 cm TAPSE: 2.8 cm Doppler Measurements & Calculations Ao V2 max: 160.8 cm/sec LVOT Max Emery: 82.3 cm/sec Ao V2 mean: 103.1 cm/sec LV V1 max P.7 mmHg Ao max P.3 mmHg LV V1 VTI: 22.1 cm Ao mean P.8 mmHg sev ratio: 0.59 Ao V2 VTI: 37.7 cm MV E max emery: 62.8 cm/sec TR max emery: 244.7 cm/sec MV A max emery: 83.1 cm/sec TR max P.1 mmHg MV E/A: 0.76 PA pr(Accel): -10.9 mmHg Med Peak E' Emery: 6.1 cm/sec E/E' med: 10.3 Lat Peak E' Emery: 4.7 cm/sec E/E' lat: 13.4 E/e' average: 11.9 MV dec time: 0.39 sec Electronically signed by: Osmel Murcia on Reading Physician:04/30/2024 04:55 PM
== END ==
PROVIDERS: Family Provider Family Medicine; PCP Family Medicine; Referring Provider Student in an Organized Health Care Education/Training Program; Visit Provider Student in an Organized Health Care Education/Training Program
DX: J44.9 Chronic obstructive pulmonary disease, unspecified (principal); I35.8 Other nonrheumatic aortic valve disorders; I25.10 Atherosclerotic heart disease of native coronary artery without angina pectoris; J43.2 Centrilobular emphysema; K44.9 Diaphragmatic hernia without obstruction or gangrene
CPT/HCPCS: 71250; C8929; Q9957

== ENCOUNTER → 2024-12-10 14:21 | Outpatient (CLI) | payer MEDICARE, SELFPAY ==
[2021-07-04 12:00] VITALS: BMI 25.1
[2024-12-10 15:23] LABS: Add Manual Diff / Slide Review NO; Basophils Absolute Auto 100 /uL (0-100); Basophils Percent Auto 0.9 % (0-2); Eosinophils Absolute Auto 500 /uL (0-450); Eosinophils Percent Auto 5.6 % (2-4); Hematocrit 41.7 % (41-53); Hemoglobin 14.5 g/dL (13.5-17.5); Lymphocytes Absolute Auto 2300 /uL (1100-4500); Lymphocytes Percent Auto 26.8 % (25-40); Mean Corpuscular HGB Conc 34.7 % (30-36); Mean Corpuscular Hemoglobin 32.9 PG (26-34); Mean Corpuscular Volume 94.6 fL (80-100); Monocytes Absolute Auto 600 /uL (0-900); Monocytes Percent Auto 6.6 % (3-14); Neutrophils Absolute Auto 5100 /uL (1500-7000); Neutrophils Percent Auto 60.1 % (50-75); Platelet Count 253 X10^3/uL (150-400); Red Cell Distribution Width 13.5 % (11.6-14.8); White Blood Cell Count 8.6 X10^3/uL (4.5-11.0)
[2024-12-10 15:44] LABS: Alanine Aminotransferase 35 IU/L (<50); Albumin 4.2 g/dL (3.5-5.0); Albumin Globulin Ratio 1.4 (1.0-2.8); Alkaline Phosphatase 117 U/L (38-126); Aspartate Aminotransferase 38 IU/L (17-59); BUN Creatinine Ratio 17.3 (6-22); Bilirubin Total 1.1 mg/dL (0.2-1.3); Blood Urea Nitrogen 17 mg/dL (9-20); Calcium 9.8 mg/dL (8.4-10.2); Carbon Dioxide 27 mmol/L (22-32); Chloride 107 mmol/L (98-107); Cholesterol 118 mg/dL (140-199); Estimated Glomerular Filt Rate > 60 mL/min (>60); Globulin 2.9 g/dL (1.7-4.1); Glucose 105 mg/dL (70-99); HDL Cholesterol 58 mg/dL (40-60); HEMOLYSIS < 15 (0-50); LDL Cholesterol Calculated 51 mg/dL (<100); Potassium 4.9 mmol/L (3.4-5.1); Sodium 140 mmol/L (137-145); Total Protein 7.1 g/dL (6.3-8.2); Triglycerides 47 mg/dL (35-150)
[2024-12-10 15:45] LABS: Hemoglobin A1C% w Est Avg Glu 5.7 % (4.0-6.0)
[2024-12-10 16:00] LABS: Creatinine Urine Random 104.38 mg/dL
[2024-12-10 16:13] LABS: Thyroid Stimulating Hormone 1.43 uIU/mL (0.47-4.68)
== END ==
PROVIDERS: Family Provider Family Medicine; PCP Family Medicine; Referring Provider Family Medicine; Visit Provider Family Medicine
DX: R73.03 Prediabetes (principal); I10 Essential (primary) hypertension; R42 Dizziness and giddiness
CPT/HCPCS: 36415; 80053; 80061; 82043; 82570; 83036; 84443; 85025